=== PATIENT | female | born 1965 | race Caucasian/White ===

== ENCOUNTER 2023-11-13 05:39 | Emergency (ER) | payer OTHER, SELFPAY ==
[2023-11-13] VITALS (11 sets, daily range): BP systolic 119–176; BP diastolic 87–153
[2023-11-13] MEDS: ZOFRAN 4 MG IV (06:45)
[2023-11-13] MEDS: ATIVAN 1 MG IV ×2 (06:45→09:03)
[2023-11-13] MEDS: NSS 1000 IV (06:46)
--- NOTE | 2023-11-13 06:54 | ED.GENMED ---
History of Present Illness
General
Chief Complaint: Alcohol Problem
Source: patient
Exam Limitations: none
Time Seen by Provider: 11/13/23 06:08
Travel History
Have you had any contact with someone who has COVID-19?: No
Do you have any symptoms of coronavirus? Fever > 100 degrees, chills, cough, shortness of breath, sore throat, loss of taste or smell, muscle aches, or headache?: No
History of Present Illness
History of Present Illness:
58-year-old female states she had been mostly sober for about 6 months but 3 to 4 days ago drank a significant mount of vodka. Patient states she is now shaky, nauseous, vomiting, has a headache and feels her muscles are cramping. She suspects she
is in alcohol withdrawal. The patient does also have a history of hypertension states she has not taken her medications in probably a week. She denies chest pain.
Past History
Past History
ED Past Medical History: HTN, Psychiatric and Other (Alcoholism)
ED Past Surgical History: None and Other (parathyroidectomy)
Social History
Tobacco: Smoker
Alcohol: Binge drinker
Drug: None
Personal:
Living: with family
Employment: Employed
Family History
Family History: Other (Father with TIA and hypertension)
Phy Exam
Physical Exam
Physical Exam:
CONSTITUTIONAL Patient alert and oriented to person, place and time. Vomiting on evaluation. Vital signs reviewed.
HEAD atraumatic, normocephalic.
EYES eyelids normal to inspection, Pupils equally round and reactive to light, Extraocular muscles intact, Conjunctiva normal, Sclera normal.
NECK normal range of motion, Trachea midline, no jugular venous distention.
RESPIRATORY CHEST No respiratory distress noted, Chest expansion equal, Bilateral breath sounds clear.
CARDIOVASCULAR regular rate and tachycardic, Heart sounds normal.
ABDOMEN abdomen nontender, Bowel sounds normal. No distention.
BACK normal inspection, no obvious deformities
UPPER EXTREMITY range of motion normal, Motor strength normal, no cyanosis, no edema.
LOWER EXTREMITY range of motion normal, Motor strength normal, no cyanosis, no edema.
NEURO Speech normal, No focal motor deficits, Charlie coma scale 15, Memory normal, Cranial Nerves intact to screening exam. Somewhat tremulous
SKIN skin warm, dry, and normal in color.
Scores
Withdrawal Assessment of Alcohol
Withdrawal Assessment Completed?: Yes
Nausea and Vomiting: Constant nausea, frequent dry heaves and vomiting
Tactile Disturbances: None
Tremor: Moderate, with patient's arms extended
Auditory Disturbances: Not present
Paroxysmal Sweats: Beads of sweat obvious on forehead
Visual Disturbances: Not present
Anxiety: Mild anxiety
Headache, Fullness in Head: Moderate
Agitation: Normal activity
Orientation and clouding of sensorium: Oriented and can do serial additions
Total CIWA Score: 19
Alcohol Withdrawal Medication Recommendation: Equal to MSAS Score 8-11. Lorazepam 1-2mg IV NOW & re-assess q1hr
Course
Orders/Labs/Results
Orders:
Orders
11/13/23 06:40
0.9% Sodium Chloride 1000 ml [Nss] 1,000 ml IV BOLUS
Lorazepam [Ativan] 1 mg IV NOW STA
Ondansetron Injectable [Zofran] 4 mg IV NOW STA
11/13/23 06:41
Electrocardiogram (*1) Urgent
Reason for Study: Hypertension, Benign
EKG- Treatment ONCE
Magnesium Stat
11/13/23 06:51
Complete Blood Count/With Diff Urgent
Comprehensive Metabolic Panel Urgent
11/13/23 08:23
Add On - Microbiology Stat
Tests Added?: magnesium
11/13/23 08:52
Lorazepam [Ativan] 1 mg IV NOW STA
11/13/23 08:55
Acetaminophen [Tylenol] 1,000 mg PO NOW STA
11/13/23 09:16
Labetalol HCl [Trandate] 10 mg IV NOW STA
11/13/23 09:49
NIFEdipine EXTENDED RELEASE [Procardia Xl (Extended Release)] 30 mg PO NOW STA
Abnormal Lab Results
11/13/23
06:51
MCH 32.9 H pg
(27.0-31.0)
Abs Immat Gran (auto) 0.1 H 10^3/uL
(0-0.05)
Absolute Neuts (auto) 7.9 H 10^3/uL
(1.4-6.5)
Absolute Monos (auto) 0.7 H 10^3/uL
(0.1-0.6)
Immature Gran % 1.3 H %
(0-0.5)
Neutrophils % 78.6 H %
(42.2-75.2)
Lymphocytes % 13.3 L %
(20.5-51.1)
Sodium 132 L mmol/L
(135-145)
Potassium 3.3 L mmol/L
(3.5-5.1)
Chloride 95 L mmol/L
(98-107)
Glucose 171 H mg/dl
(70-99)
Total Bilirubin 1.9 H mg/dl
(0.2-1.3)
AST 121 H U/L
(14-36)
ALT 95 H U/L
(0-35)
11/13/23 06:51
11/13/23 06:51
Vital Signs
Initial and Last Documented VS:
Initial Vital Signs
Temp Pulse Resp BP Pulse Ox
98.7 F 107 22 172/126 96
11/13/23 05:44 11/13/23 05:44 11/13/23 05:44 11/13/23 05:44 11/13/23 05:44
Last Documented Vital Signs
Temp Pulse Resp BP Pulse Ox
98.7 F 96 21 119/89 93
11/13/23 05:44 11/13/23 10:45 11/13/23 10:45 11/13/23 10:30 11/13/23 10:45
MDM/Problems Addressed
MDM/Problems Addressed:
Acute uncontrolled hypertension, acute alcohol withdrawal
*Pulse Oximetry
Patient hypoxic: no
*EKG
Interpreted by ED Provider?: Yes
Interpretation: abnormal
Rate: tachycardiac
Rhythm: sinus
[place]: normal axis
Interval: normal interval
*Freezer Assistant Interpretation
Rate: normal
Interpretation: normal
Rhythm: sinus
*Critical Care Note
Total Time (30-74mins, 75-104mins- exclusive of procedures): 40 minutes
Data Reviewed
Review of Other/Old Records Reveals: Discharge Summary (Discharge summary from 3 days ago reviewed. Patient was discharged on nifedipine and spironolactone.)
Source: patient
Prescriptions/Medications Considered But Not Given:
Considered oral beta-blockers but patient administered nifedipine.
Patient Management
Escalation/DeEscalation of care consider admission/obs:
Patient feels much better. Advised strongly that she maintain compliance with her blood pressure medications. Provide small amount of benzodiazepines from use. Offered B cares but the patient prefers to follow-up with her counselor which she is
in touch with. Okay for discharge
ED Attending Note
-
Portions of this chart may have been created with voice recognition software.� Occasional wrong word or��sound alike� substitutions may have occurred due to the inherent limitations of voice recognition software.
Discharge Plan
Departure
Patient Disposition: Home (Routine Discharge)
Date of Disposition: 11/13/23
Time of Disposition: 11:07
Patient with high blood pressure during this ER visit?: No
Discharge Problem:
Alcohol withdrawal, Uncontrolled hypertension
Instructions: High blood pressure in adults, Alcohol Withdrawal (DC)
Prescriptions:
New
oxazepam 15 mg capsule
15 mg PO TID Qty: 12 0RF
Rx Instructions:
take 30mg TID x 1 day, then 15mg TID x 2 days, then stop
No Action
nifedipine 30 mg Tablet Extended Release
30 mg PO DAILY Qty: 30 0RF
spironolactone 25 mg Tablet
25 mg PO DAILY Qty: 30 0RF
Referrals:
Aric Simms MD [Family Provider] -
Activity Restrictions/Additional Instructions:
It is extremely important that you continue your blood pressure medication daily and do not miss dosages. Please see your doctor in the next 3 days for follow-up and reevaluation. Also please touch base with your alcohol counselor for further
help. Return immediately for worsening symptoms, tremulousness, vomiting, headache, vision changes, motor weakness or any other concerns.
Interventions
Interventions:
*Risk Screen - Suicide Last Done: 11/13/23 05:44
*General Assessment Last Done: 11/13/23 05:44
*Neglect/Abuse Screening Last Done: 11/13/23 05:44
ED- Fall Risk Assessment Last Done: 11/13/23 05:44
*ED COVID-19 Vaccine History Last Done: 11/13/23 05:44
ED- Neurological Assessment Last Done: 11/13/23 06:34
ED-Psychological Assessment Last Done: 11/13/23 06:34
[2023-11-13 07:05] LABS: % Basophils 0.2 % (0-2); % Eosinophils 0.1 % (0-6); % Immature Granulocytes 1.3 % (0-0.5); % Lymphocytes 13.3 % (20.5-51.1); % Monocytes 6.5 % (1.7-9.3); % Neutrophils 78.6 % (42.2-75.2); Absolute Immature Granulocytes 0.1 10^3/uL (0-0.05); Absolute Lymphocytes 1.3 10^3/uL (1.2-3.4); Absolute Monocytes 0.7 10^3/uL (0.1-0.6); Absolute Neutrophils 7.9 10^3/uL (1.4-6.5); Hematocrit 44.6 % (37.0-47.0); Mean Corp Hgb Conc. 35.9 g/dL (33.0-37.0); Mean Corpuscular Hgb 32.9 pg (27.0-31.0); Mean Corpuscular Volume 91.8 fL (81.0-99.0); Mean Platelet Volume 9.6 fL (7.4-10.4); Nucleated Red Blood Cells % 0 %; Platelet Count 394 10^3/uL (130-400); Red Blood Cell Count 4.86 10^6/uL (4.20-5.40); Red Cell Dist. Width 13.1 % (11.5-14.5); White Blood Cell Count 10.1 10^3/uL (4.8-10.8)
[2023-11-13 07:11] LABS: ALT (SGPT) 95 U/L (0-35); AST (SGOT) 121 U/L (14-36); Albumin 4.6 g/dl (3.5-5.0); Alkaline Phosphatase 123 U/L (38-126); Blood Urea Nitrogen 11 mg/dl (7-17); Carbon Dioxide 23 mmol/L (22-30); Chloride 95 mmol/L (98-107); Glucose 171 mg/dl (70-99); Potassium 3.3 mmol/L (3.5-5.1); Sodium 132 mmol/L (135-145); Total Bilirubin 1.9 mg/dl (0.2-1.3); Total Protein 7.8 g/dl (6.3-8.2); eGFR > 60.00
[2023-11-13] MEDS: TYLENOL 1000 MG PO (09:01)
[2023-11-13] MEDS: TRANDATE 10 MG IV (09:45)
[2023-11-13] MEDS: PROCARDIA XL (EXTENDED RELEASE) 30 MG PO (10:21)
== END 2023-11-13 11:47 | disposition home or self-care (01) ==
LOC: EMR 05:39
PROVIDERS: EMERGENCY PHYSICIAN Emergency Medicine; FAMILY PHYSICIAN Family Medicine
DX: F10.239 Alcohol dependence with withdrawal, unspecified (principal); R11.2 Nausea with vomiting, unspecified; R51.9 Headache, unspecified; I10 Essential (primary) hypertension; T50.906A Underdosing of unspecified drugs, medicaments and biological substances, initial encounter; Z91.128 Patient's intentional underdosing of medication regimen for other reason; F17.200 Nicotine dependence, unspecified, uncomplicated
CPT/HCPCS: 99291; 96374; 96375 ×2; 96361; 96376; 80053; 85025; 93005

== ENCOUNTER 2023-11-26 12:53 | Emergency (ER) | payer OTHER, SELFPAY ==
[2023-11-26 12:55] VITALS: BP 168/109
[2023-11-26 13:20] LABS: ALT (SGPT) 71 U/L (0-35); AST (SGOT) 123 U/L (14-36); Albumin 4.2 g/dl (3.5-5.0); Alkaline Phosphatase 101 U/L (38-126); Blood Urea Nitrogen 19 mg/dl (7-17); Calcium 8.7 mg/dl (8.4-10.2); Carbon Dioxide 19 mmol/L (22-30); Chloride 107 mmol/L (98-107); Glucose 110 mg/dl (70-99); Lipase 60 U/L (23-300); Sodium 140 mmol/L (135-145); Total Bilirubin 0.6 mg/dl (0.2-1.3); Total Protein 7.1 g/dl (6.3-8.2); eGFR > 60.00
[2023-11-26 13:21] LABS: % Basophils 0.8 % (0-2); % Eosinophils 0.2 % (0-6); % Immature Granulocytes 0.2 % (0-0.5); % Lymphocytes 45.6 % (20.5-51.1); % Monocytes 3.7 % (1.7-9.3); % Neutrophils 49.5 % (42.2-75.2); Absolute Lymphocytes 2.4 10^3/uL (1.2-3.4); Absolute Monocytes 0.2 10^3/uL (0.1-0.6); Absolute Neutrophils 2.6 10^3/uL (1.4-6.5); Hematocrit 41.3 % (37.0-47.0); Hemoglobin 14.7 g/dL (12.0-16.0); Mean Corp Hgb Conc. 35.6 g/dL (33.0-37.0); Mean Corpuscular Hgb 33.3 pg (27.0-31.0); Mean Corpuscular Volume 93.7 fL (81.0-99.0); Mean Platelet Volume 9.1 fL (7.4-10.4); Nucleated Red Blood Cells % 0 %; Platelet Count 330 10^3/uL (130-400); Red Blood Cell Count 4.41 10^6/uL (4.20-5.40); Red Cell Dist. Width 13.2 % (11.5-14.5); White Blood Cell Count 5.2 10^3/uL (4.8-10.8)
[2023-11-26 15:55] VITALS: BMI 38.6
[2023-11-26] MEDS: ATIVAN 0.5 MG IV (15:56)
[2023-11-26] MEDS: NSS 500 IV (15:56)
[2023-11-26] MEDS: ZOFRAN 4 MG IV ×2 (15:56→17:45)
[2023-11-26 16:32] VITALS: BP 155/89
[2023-11-26 16:52] LABS: Alcohol 374 mg/dl
--- NOTE | 2023-11-26 23:52 | ED.GENMED ---
History of Present Illness
General
Chief Complaint: Abdominal Symptoms
Source: patient
Exam Limitations: none
Time Seen by Provider: 11/26/23 15:05
Nursing documentation reviewed up to this point in time: agreed with
Travel History
Have you had any contact with someone who has COVID-19?: No
Do you have any symptoms of coronavirus? Fever > 100 degrees, chills, cough, shortness of breath, sore throat, loss of taste or smell, muscle aches, or headache?: No
History of Present Illness
History of Present Illness:
Patient to ED with complaint of nausea, vomiting, diarrhea. Symptms started last PM. States she thinks she ate bad chicken and then she drank a bottle of wine. Brought self to ED via [facility]. No fever/chills
Past History
Past History
ED Past Medical History: HTN, Psychiatric and Other (Alcoholism)
ED Past Surgical History: None and Other (parathyroidectomy)
Social History
Tobacco: Smoker
Alcohol: Binge drinker
Drug: None
Personal:
Living: with family
Employment: Employed
Family History
Family History: Other (Father with TIA and hypertension)
Review of Systems
Review of Systems
Allergies reviewed?: Yes
All Other Systems: ROS reviewed and negative except as documented in HPI and ROS
Constitutional: Reports no symptoms
EENT: Reports no symptoms
Respiratory: Reports no symptoms
Cardiac: Reports no symptoms
ABD/GI: Reports nausea and vomiting
: Reports no symptoms
Musculoskeletal: Reports no symptoms
Skin: Reports no symptoms
Neurological: Reports no symptoms
Psychiatric: Reports no symptoms
Phy Exam
General Physical Exam
General Presentation: well appearing and no apparent distress
General age: appears stated age
General Skin: warm
General Habitus: normal
Cardiovascular Exam
Cardiovascular Exam: regular rate/rhythm and no edema
Gastrointestinal Exam
Gastrointestinal Exam: normal bowel sounds, non tender, soft, no organomegaly, no pulsatile mass, non distended and no cva tenderness
Musculoskeletal Exam
Musculoskeletal Exam: full ROM and neuro vasc intact
Skin Exam
Skin Exam: normal color, warm/dry and no rash
Psychiatric Exam
Psychiatric Exam: normal mood/affect
Course
Orders/Labs/Results
Orders:
Orders
11/26/23 13:02
Alcohol Urgent
Complete Blood Count/With Diff Urgent
Comprehensive Metabolic Panel Urgent
Lipase Urgent
11/26/23 13:50
EKG [Electrocardiogram (*1)] Urgent
Reason for Study: Fatigue / Weakness
EKG- Treatment ONCE
11/26/23 15:37
Add On- LAB Urgent
Tests Added?: Alcohol
11/26/23 15:38
0.9% Sodium Chloride 500 ml [Nss] 500 ml IV BOLUS
Lorazepam [Ativan] 0.5 mg IV NOW STA
Ondansetron Injectable [Zofran] 4 mg IV NOW STA
11/26/23 17:22
Ondansetron Injectable [Zofran] 4 mg IV NOW STA
Abnormal Lab Results
11/26/23
13:02
MCH 33.3 H pg
(27.0-31.0)
Carbon Dioxide 19 L mmol/L
(22-30)
BUN 19 H mg/dl
(7-17)
Glucose 110 H mg/dl
(70-99)
AST 123 H U/L
(14-36)
ALT 71 H U/L
(0-35)
11/26/23 13:02
11/26/23 13:02
Vital Signs
Initial and Last Documented VS:
Initial Vital Signs
Temp Pulse Resp BP Pulse Ox
98.2 F 90 16 168/109 98
11/26/23 12:55 11/26/23 12:55 11/26/23 12:55 11/26/23 12:55 11/26/23 12:55
Last Documented Vital Signs
Temp Pulse Resp BP Pulse Ox
98.2 F 74 18 155/89 94
11/26/23 12:55 11/26/23 16:32 11/26/23 16:32 11/26/23 16:32 11/26/23 17:30
*Critical Care Note
Total Time (30-74mins, 75-104mins- exclusive of procedures): Not Applicable
ED Attending Note
-
Portions of this chart may have been created with voice recognition software.� Occasional wrong word or��sound alike� substitutions may have occurred due to the inherent limitations of voice recognition software.
Discharge Plan
Departure
Patient Disposition: Home (Routine Discharge)
Date of Disposition: 11/26/23
Time of Disposition: 17:55
Patient with high blood pressure during this ER visit?: No
Condition: Good
Covid-19: Not Applicable
Discharge Problem:
Vomiting, Alcohol abuse
Instructions: Nausea and Vomiting, Adult (DC), Alcohol Use Disorder ED
Prescriptions:
No Action
nifedipine 30 mg Tablet Extended Release
30 mg PO DAILY Qty: 30 0RF
spironolactone 25 mg Tablet
25 mg PO DAILY Qty: 30 0RF
oxazepam 15 mg capsule
15 mg PO TID Qty: 12 0RF
Rx Instructions:
take 30mg TID x 1 day, then 15mg TID x 2 days, then stop
Referrals:
Aric Simms MD [Family Provider] -
Interventions
Interventions:
*Risk Screen - Suicide Last Done: 11/26/23 12:55
*General Assessment Last Done: 11/26/23 12:55
*Neglect/Abuse Screening Last Done: 11/26/23 12:55
ED- Fall Risk Assessment Last Done: 11/26/23 16:30
*Nursing Disposition Last Done: 11/26/23 18:27
WM-Arxjmh-Ykcmzhkbcf Assessment Last Done: 11/26/23 16:30
Discharge Date and Time
Discharge Date/Time: 11/26/23 18:29
== END 2023-11-26 18:29 | disposition home or self-care (01) ==
LOC: EMR 12:53
PROVIDERS: Student in an Organized Health Care Education/Training Program; EMERGENCY PHYSICIAN Emergency Medicine; FAMILY PHYSICIAN Family Medicine
DX: R11.2 Nausea with vomiting, unspecified (principal); F10.10 Alcohol abuse, uncomplicated; R19.7 Diarrhea, unspecified; R42 Dizziness and giddiness; I10 Essential (primary) hypertension; F41.9 Anxiety disorder, unspecified; F32.A Depression, unspecified; F17.200 Nicotine dependence, unspecified, uncomplicated
CPT/HCPCS: 99284; 96374; 96375; 96361; 96376; 80053; 82077; 83690; 85025; 93005

== ENCOUNTER 2023-11-28 04:10 | Inpatient (IN) | payer OTHER, SELFPAY ==
[2023-11-28] VITALS (22 sets, daily range): BP systolic 124–174; BP diastolic 78–145; PULSE 109; O2SAT 94–97; BMI 42.0; BMI 41.0
[2023-11-28 02:18] LABS: % Basophils 0.3 % (0-2); % Immature Granulocytes 0.4 % (0-0.5); % Lymphocytes 6.6 % (20.5-51.1); % Monocytes 3.2 % (1.7-9.3); % Neutrophils 89.5 % (42.2-75.2); Absolute Basophils 0.1 10^3/uL (0-0.2); Absolute Immature Granulocytes 0.1 10^3/uL (0-0.05); Absolute Lymphocytes 1.4 10^3/uL (1.2-3.4); Absolute Monocytes 0.7 10^3/uL (0.1-0.6); Absolute Neutrophils 18.3 10^3/uL (1.4-6.5); Hematocrit 37.4 % (37.0-47.0); Hemoglobin 13.6 g/dL (12.0-16.0); Mean Corp Hgb Conc. 36.4 g/dL (33.0-37.0); Mean Corpuscular Hgb 33.2 pg (27.0-31.0); Mean Corpuscular Volume 91.2 fL (81.0-99.0); Mean Platelet Volume 9.2 fL (7.4-10.4); Nucleated Red Blood Cells % 0 %; Platelet Count 267 10^3/uL (130-400); White Blood Cell Count 20.5 10^3/uL (4.8-10.8)
--- NOTE | 2023-11-28 02:38 | ED.GENMED ---
History of Present Illness
General
Chief Complaint: Withdrawal Symptoms
Source: patient and ambulance crew
Exam Limitations: none
Time Seen by Provider: 11/28/23 02:36
Nursing documentation reviewed up to this point in time: agreed with
Travel History
Have you had any contact with someone who has COVID-19?: No
Do you have any symptoms of coronavirus? Fever > 100 degrees, chills, cough, shortness of breath, sore throat, loss of taste or smell, muscle aches, or headache?: No
History of Present Illness
History of Present Illness:
58-year-old female presents with acute alcohol withdrawal. Patient states that she drinks fairly heavily but has not consumed alcohol in 3 days and attempt to quit. She states that she normally drinks at least a bottle of wine per day. Patient
has been seen several times over the last few weeks for similar symptoms. 3 days ago she was seen and discharged home, with a prescription for benzodiazepine. She did not fill them. Tonight she was shaking uncontrollably and felt nauseated. She
called 911. She does not work. She lives with 2 other tenants. She does go to therapy on occasion. She does not want to speak with be [facility] today. She does have high blood pressure. Denies any current chest pain or shortness of breath.
Past History
Past History
ED Past Medical History: HTN, Psychiatric and Other (Alcoholism)
ED Past Surgical History: None and Other (parathyroidectomy)
Social History
Tobacco: Smoker
Alcohol: Binge drinker
Drug: None
Personal:
Living: with family
Employment: Employed
Family History
Family History: Other (Father with TIA and hypertension)
Phy Exam
General Physical Exam
General Presentation: moderate distress
General age: appears older than age
General Skin: warm, dry and diaphoretic
General Habitus: normal
General Mental: angry and anxious
General Hydration: appears well hydrated
ENT Exam
ENT Exam: EOMI, pharynx normal, neck supple and normocephalic
Eye Exam
Eye Exam: PERRL, cornea clear and conjunctiva normal
Cardiovascular Exam
Cardiovascular Exam: tachycardia
Pulmonary Exam
Pulmonary Exam: lungs clear, no respiratory distress, no rales, no crackles, no rhonchi, no stridor, no wheezing and no cough
Gastrointestinal Exam
Gastrointestinal Exam: normal bowel sounds, non tender, soft, no organomegaly, no pulsatile mass and non distended
Neurological Exam
Neurological Exam: alert, oriented x3, no motor deficits and speech normal
Musculoskeletal Exam
Musculoskeletal Exam: full ROM and no edema
Skin Exam
Skin Exam: normal color, warm/dry, no rash and no petechia
Scores
Withdrawal Assessment of Alcohol
Withdrawal Assessment Completed?: Yes
Nausea and Vomiting: Mild nausea with no vomiting
Tactile Disturbances: Very mild itching, pins and needles, burning or numbness
Tremor: Moderate, with patient's arms extended
Auditory Disturbances: Not present
Paroxysmal Sweats: Beads of sweat obvious on forehead
Visual Disturbances: Not present
Anxiety: Moderately anxious, or guarded, so anxiety is inferred
Headache, Fullness in Head: Not present
Agitation: Moderately fidgety and restless
Orientation and clouding of sensorium: Cannot do serial additions or is uncertain about date
Total CIWA Score: 19
Alcohol Withdrawal Medication Recommendation: Equal to MSAS Score 8-11. Lorazepam 1-2mg IV NOW & re-assess q1hr
Course
Orders/Labs/Results
Orders:
Orders
11/28/23 02:10
Electrocardiogram (*1) Urgent
Reason for Study: Bradycardia / Tachycardia
EKG- Treatment ONCE
11/28/23 02:13
Alcohol Urgent
CMP [Comprehensive Metabolic Panel] Urgent
Complete Blood Count/With Diff Urgent
Magnesium Urgent
Comment: ADD ON
Phosphorus Urgent
11/28/23 02:39
Lorazepam [Ativan] 1 mg IV NOW STA
11/28/23 03:00
0.9% Sodium Chloride 1000 ml [Nss] 1,000 ml Mvi, Adult [Multivitamin] 10 ml Thiamine Injection 100 mg IV 250 mls/hr
11/28/23 03:24
Add On- LAB Urgent
Tests Added?: Magnesium, Phosphorus
Lorazepam [Ativan] 1 mg IV NOW STA
11/28/23 03:45
Admit/Transfer Patient As Directed
Co-Sign Provider:
Level of Care: Inpatient admission
Assign to:: IMU- Intermediate Care
Physician / Group: Ruperto
Diagnosis: Alcohol Withdrawal
Reason for Hospitalization: Alcohol Withdrawal
Expected length of stay greater than two midnights?: Yes
ELOS- Estimated Length of Stay in days: 3
I certify the patient meets the requirements for IP care: Yes
11/28/23 03:46
Code Status As Directed
Resuscitation Status: Full Code
11/28/23 04:09
Magnesium Sulfate 1 G/D5w [Magnesium Sulfate] 1 gm in 100 ml IV NOW
11/28/23 04:28
0.9% Sodium Chloride [Nss (Preservative Free)] See Protocol IV PRN PRN
Acetaminophen [Tylenol] 650 mg PO Q4HPRN PRN
FOLic ACID [Folvite] 1 mg 0.9% Sodium Chloride 50 ml [Nss] 50 ml IV DAILYPRN
HYDROmorphone [Dilaudid] 0.5 mg IV Q4HPRN PRN
Lactated Ringers [Lr] 1,000 ml IV 150 mls/hr
Lorazepam [Ativan] 1 mg IV Q1HPRN PRN
Lorazepam [Ativan] 1 mg PO Q2HPRN PRN
Lorazepam [Ativan] 2 mg IV Q1HPRN PRN
Ondansetron Injectable [Zofran] 4 mg IV Q6HPRN PRN
11/28/23 04:28
Case Management Consult Once
Case Management Consult: Other
Comment: Substance abuse counseling
DIETARY CONSULT Routine
Reason for Consult: Nutrition support, possible refeeding guidelines
Urinalysis Routine
Date Specimen was Collected: 11/28/23
Time Specimen was Collected: 06:53
Urine Drug Abuse Screen Routine
Date Specimen was Collected: 11/28/23
Time Specimen was Collected: 06:53
Activity As Directed
Activity Level: Ambulate
With Assistance
Bladder Scan As Directed
Follow Bladder Retention/Intermittent Cath Algorithm?: Yes
PRN if no void in __ hours: 6
Frequency: Per Retention Algorithm
If Bladder Scan Result >: 400
then:: Straight cath
EKG with chest pain [ECG as needed] As Directed
ECG as needed for:: Chest Pain
I/O [Intake/ Output] As Directed
Frequency: Per unit guidelines
MSAS SCORE As Directed
MSAS Score 0-4: Repeat MSAS every 2 hours until 0-4 for three consecutive assessments, then every 4 hours x 48
hours.
MSAS Score 5-7: For MILD withdrawl symptoms. Repeat MSAS and RASS every 2 hours
MSAS Score 8-11: For MODERATE withdrawal symptoms. Repeat MSAS and RASS every 1 hour. Consider ICU or IMU
level of care.
MSAS Score > 11: For SEVERE withdrawal symptoms. Repeat MSAS and RASS every 1 hour. Notify provider, consider
ICU level of care.
MSAS Additional Instructions: If no improvement or no decrease in score from severe to moderate within 12
hours, consult psychiatry
MSAS Notify Provider: Notify provider if patient requires more than 10 mg of Lorazepam in eight hour period.
Orthostatic Vital Signs As Directed
Orthostatic VS Frequency: BID
Pneumatic Compression Sleeves As Directed
Type: Knee high
Precautions As Directed
Type of Precautions: Seizure
Straight Cath As Directed
Frequency: Per Retention Algorithm
Additional Instructions: straight cath as needed per acute urinary retention algorithm for 24 hrs
Additional Instructions: for bladder scan greater than 400 mL
Vital Signs As Directed
Frequency: Per unit guidelines
Weight As Directed
Frequency: Daily
Oxygen Therapy [O2 Therapy] [RESP] Routine
Titrate/Wean O2 to maintain O2 sat greater than (%): 94
Ot Eval And Treat Routine
PT Consult [Pt Eval And Treat] Routine
Activity Level: Ambulate
With Assistance
DX Deep Vein Thrombosis Video Routine
11/28/23 05:55
Complete Blood Count/No Diff IN AM
TSH Reflex To Free T4 Routine
11/28/23 06:00
EKG [Electrocardiogram (*1)] IN AM
Reason for Study: Chest Pain
Clear Liquid
At Your Request: Non-Participating
11/28/23 08:00
FOLic ACID [Folvite] 1 mg PO DAILY
NIFEdipine EXTENDED RELEASE [Procardia Xl (Extended Release)] 30 mg PO DAILY
Spironolactone [Aldactone] 25 mg PO DAILY
Thiamine Injection 200 mg IV Q8
12/01/23 08:00
Thiamine HCl [Vitamin B1] 100 mg PO BID
Abnormal Lab Results
11/28/23
02:13
WBC 20.5 H 10^3/uL
(4.8-10.8)
RBC 4.10 L 10^6/uL
(4.20-5.40)
MCH 33.2 H pg
(27.0-31.0)
Abs Immat Gran (auto) 0.1 H 10^3/uL
(0-0.05)
Absolute Neuts (auto) 18.3 H 10^3/uL
(1.4-6.5)
Absolute Monos (auto) 0.7 H 10^3/uL
(0.1-0.6)
Neutrophils % 89.5 H %
(42.2-75.2)
Lymphocytes % 6.6 L %
(20.5-51.1)
Sodium 131 L D mmol/L
(135-145)
Potassium 3.4 L mmol/L
(3.5-5.1)
Carbon Dioxide 15 L mmol/L
(22-30)
Glucose 178 H mg/dl
(70-99)
Magnesium 0.9 L* mg/dl
(1.6-2.3)
Total Bilirubin 1.5 H mg/dl
(0.2-1.3)
AST 191 H U/L
(14-36)
ALT 77 H U/L
(0-35)
11/28/23 02:13
11/28/23 02:13
Vital Signs
Initial and Last Documented VS:
Initial Vital Signs
Pulse Resp Pulse Ox
116 13 96
11/28/23 02:12 11/28/23 02:12 11/28/23 02:12
Last Documented Vital Signs
Temp Pulse Resp BP Pulse Ox
98.7 F 111 21 142/86 96
11/28/23 02:13 11/28/23 06:45 11/28/23 06:45 11/28/23 06:00 11/28/23 06:45
*Pulse Oximetry
Patient hypoxic: no
*EKG
Interpreted by ED Provider?: Yes
EKG Intrepretation Date: 11/28/23
Interpretation: abnormal
Rhythm: sinus
[place]: left axis deviation
Ischemia: no ischemia
*Assistant Merchandiser Interpretation
Rate: tachycardiac
Heart Rate: 112
Rhythm: sinus arrhythmia and sinus tachycardia
*Critical Care Note
Total Time (30-74mins, 75-104mins- exclusive of procedures): 30
comment:
Critical care statement: A total of 30 minutes of critical care time was provided for this patient. This time is separate from time utilized to perform the aforementioned documented procedures. Aggregate critical care time includes only time
during which I was engaged in work directly related to the patient's care, as described above, whether at the bedside or elsewhere in the Emergency Department.
ED Attending Note
-
Portions of this chart may have been created with voice recognition software.� Occasional wrong word or��sound alike� substitutions may have occurred due to the inherent limitations of voice recognition software.
Discharge Plan
Departure
Patient Disposition: Admit
Date of Disposition: 11/28/23
Time of Disposition: 03:09
Admit to: Telemetry
Presentation/result/management discussed w/ accepting MD/DO: Hospitalist
Condition: Fair
Discharge Problem:
Alcohol intoxication, Alcohol consumption binge drinking, Alcohol withdrawal
Interventions
Interventions:
*Risk Screen - Suicide Last Done: 11/28/23 02:13
*General Assessment Last Done: 11/28/23 02:13
*Neglect/Abuse Screening Last Done: 11/28/23 02:13
*ED COVID-19 Vaccine History Last Done: 11/28/23 02:13
ED- Neurological Assessment Last Done: 11/28/23 03:55
ED-Psychological Assessment Last Done: 11/28/23 03:55
[2023-11-28 02:40] LABS: AST (SGOT) 191 U/L (14-36); Albumin 4.1 g/dl (3.5-5.0); Alkaline Phosphatase 97 U/L (38-126); Blood Urea Nitrogen 13 mg/dl (7-17); Calcium 8.8 mg/dl (8.4-10.2); Carbon Dioxide 15 mmol/L (22-30); Chloride 98 mmol/L (98-107); Estimated Creatinine Clearance 81 ml/min; Glucose 178 mg/dl (70-99); Potassium 3.4 mmol/L (3.5-5.1); Sodium 131 mmol/L (135-145); Total Bilirubin 1.5 mg/dl (0.2-1.3); Total Protein 6.8 g/dl (6.3-8.2); eGFR > 60.00
[2023-11-28 02:42] LABS: Alcohol None Detected
[2023-11-28] MEDS: ATIVAN 1 MG IV ×3 (02:45→17:34)
[2023-11-28 02:50] LABS: ALT (SGPT) 77 U/L (0-35)
[2023-11-28] MEDS: MULTIVITAMIN 1011 ML IV (03:05)
[2023-11-28] MEDS: MULTIVITAMIN 1011 MG IV (03:05)
--- NOTE | 2023-11-28 03:50 | HPS.HSE ---
Family Physician
-
Family Physician: Aric Simms
Chief Complaint
-
Tremulous, N/V
History of Present Illness
Patient is a 58y F with PMH significant for hypertension and obesity who presents to ED complaining of alcohol withdrawal symptoms. Patient states that she has had symptoms of N/V, tremulousness, anxiety, vision changes and musscle spasms for
the past 3 days. Patient states that she has had similar symptom sin the past relating to alcohol withdrawal. Patient states that she typically drinks one bottle of wine daily. Her last drink of alcohol was three days ago.
She denies any illicit drug use.
Medical History
Past Medical History
Past Medical History: Reports Other
Additional Past Medical History:
Hypertension
Obesity
DJD
Anxiety / Depression
Hyperparathyroidism
Past Surgical History: Reports Other
Additional Past Surgical History:
Parathyroidectomy
Social History
Tobacco: Former Smoker (Quit smoking one year ago. > 40 pack years total.)
Alcohol: Chronic Alcoholic (1 bottle of wine daily. Last drink 3 days ago.)
Drug: None
Family History
Family History: Not pertinent
Allergies / Home Medications
Allergies reflects when Allergies were last updated in [facility].
Home Medications with original date entered in [facility]
Allergy/Medication List:
Allergies
Allergy/AdvReac Type Severity Reaction Status Date / Time
No Known Allergies Allergy Verified 11/28/23 02:18
Home Medications
nifedipine 30 mg tablet,extended release 30 mg PO DAILY #30 tabs 11/10/22
spironolactone 25 mg tablet 25 mg PO DAILY #30 tabs 11/10/22
Review of Systems
-
History Source: Patient
A 12 point ROS was completed and negative except as noted: Yes
Constitutional: Reports Fatigue; Denies Fever or Chills
EENT: Denies Sore Throat
Respiratory: Denies Cough or Trouble Breathing
Cardiac: Denies Chest Pain or Palpitations
Abdomen/GI: Reports Abdominal Pain, Nausea, Vomiting and Anorexia; Denies Diarrhea, Constipated, Bloody Stools or Black Stools
: Denies Dysuria, Frequency or Flank Pain
Musculoskeletal: Reports Joint Pain, Edema and Other (muscle spasms.)
Neurological: Reports Dizzy and Headache; Denies Weakness or Numbness
Psych: Reports Depression and Anxiety
Physical Exam
Vital Signs
Vital Signs
Temp Pulse Resp BP Pulse Ox
98.7 F 127 23 146/94 97
11/28/23 02:13 11/28/23 03:15 11/28/23 03:15 11/28/23 03:00 11/28/23 03:15
Physical Exam
General: Other (58y F in moderate distress due to tremulousness / withdrawals.)
HEENT: Moist mucous membranes, PERRLA and Other (Thick neck.)
Respiratory: Other (Decreased at bases - otherwise clear.)
Cardiac: S1/S2 and Tachycardia; No Murmur
GI: Non Tender, Non Distended, Normal Bowel Sounds and Other (Obese)
Musculoskeletal: No Clubbing, No Cyanosis and No Edema
Neuro: AO x 3 and Nonfocal/grossly intact
Psych: Anxious
Laboratory Results
-
11/28/23 02:13
11/28/23 02:13
Laboratory Results
Total Bilirubin 1.5 mg/dl (0.2-1.3) H 11/28/23 02:13
AST 191 U/L (14-36) H 11/28/23 02:13
ALT 77 U/L (0-35) H 11/28/23 02:13
Alkaline Phosphatase 97 U/L (38-126) 11/28/23 02:13
Impression/Plan
-
A/P: Patient is a 58y F with PMH significant for hypertension and obesity who presents to ED complaining of symptoms of alcohol withdrawal.
Alcohol Use Disorder with Acute Withdrawal Symptoms
Anion Gap Metabolic Acidosis
Hypokalemia
Mild Hyponatremia
- Admit to IMU for further evaluation and treatment.
- Supportive care with PRN BZDs, IVFs, electrolyte replacement, etc.
- Follow MSAS.
- Monitor for clinical improvement.
- Consider formal psych eval if patient is amenable.
Benign Hypertension
- Continue usual outpatient medications with holding parameters.
- Monitor potassium levels (slightly low at present) on spironolactone.
Leukocytosis
- Possible stress response. No evidence of acute infectious process, etc.
- Observe off of abx for now.
- Follow for fevers, focal symptoms, changes in CBC, etc.
Obesity due to excess calories
- Affects all aspects of care.
- Encourage healthy lifestyle and increased exercise with goal of weight loss.
DVT Prophylaxis: SCDs
Code Status: Full
[2023-11-28 04:02] LABS: Magnesium 0.9 mg/dl (1.6-2.3); Phosphorus 3.2 mg/dl (2.5-4.5)
--- NOTE | 2023-11-28 04:29 | EDRN ---
Patient used purwick to urinate, then took it out herself and bed got wet, changed patients bed linen and placed brief on patient and pulled up in bed.
[2023-11-28] MEDS: MAGNESIUM SULFATE 100 IV (04:37)
[2023-11-28] MEDS: LR 1000 IV ×2 (04:38→20:16)
--- NOTE | 2023-11-28 05:19 | EDRN ---
Patient ambulated to bathroom with assistance of tech, when getting patient back to bed she was very unsteady on her feet and SOB, informed patient this was why we didn't want her getting out of bed so if someone else comes in she is to use bedpan
or purwick as she was unable to ambulate independently and reported being dizzy, patient states understanding and back in bed.
[2023-11-28] MEDS: ATIVAN 1 MG PO ×2 (05:56→20:21)
--- NOTE | 2023-11-28 06:07 | EDRN ---
Patient asking for more ativan, medicated per MSAS guidelines
[2023-11-28 06:22] LABS: Hematocrit 36.2 % (37.0-47.0); Hemoglobin 13.1 g/dL (12.0-16.0); Mean Corp Hgb Conc. 36.2 g/dL (33.0-37.0); Mean Corpuscular Hgb 33.9 pg (27.0-31.0); Mean Corpuscular Volume 93.8 fL (81.0-99.0); Mean Platelet Volume 9.7 fL (7.4-10.4); Platelet Count 247 10^3/uL (130-400); Red Blood Cell Count 3.86 10^6/uL (4.20-5.40); Red Cell Dist. Width 12.9 % (11.5-14.5); White Blood Cell Count 14.9 10^3/uL (4.8-10.8)
[2023-11-28 06:57] LABS: TSH Reflex To Free T4 4.71 uIU/ml (0.47-4.68)
[2023-11-28 07:26] LABS: Free T4 0.87 ng/dl (0.78-2.19)
[2023-11-28] MEDS: ZOFRAN 4 MG IV (10:05)
[2023-11-28] MEDS: THIAMINE INJECTION 200 MG IV ×3 (10:06→23:20)
[2023-11-28] MEDS: PROTONIX IV 40 MG IV (10:06)
[2023-11-28] MEDS: ALDACTONE 25 MG PO (10:07)
[2023-11-28] MEDS: FOLVITE 1 MG PO (10:08)
[2023-11-28] MEDS: PROCARDIA XL (EXTENDED RELEASE) 30 MG PO ×2 (10:09→16:21)
[2023-11-28] MEDS: NSS (PRESERVATIVE FREE) 10 ML IV (10:13)
[2023-11-28 10:37] LABS: Urine Albumin Trace (Neg - Trace); Urine Bilirubin Negative (Negative); Urine Character Clear (Clear); Urine Color Yellow; Urine Glucose Negative (Negative); Urine Ketone Trace (Negative); Urine Leukocyte Trace (Negative); Urine Nitrite Negative (Negative); Urine Occult Blood 2+ (Negative); Urine Urobilinogen Negative (Neg - 1+); Urine pH 6.5 (5.0-9.0)
[2023-11-28 10:44] LABS: Urine Bacteria Few (Negative); Urine Red Blood Cell 0-2 /HPF (0-2)
[2023-11-28 10:54] LABS: Amphetamines Negative (Negative); Barbiturates Negative (Negative); Benzodiazepines Negative (Negative); Buprenorphine Negative (Negative); Cocaine Negative (Negative); Marijuana Negative (Negative); Methadone Negative (Negative); Methamphetamines Negative (Negative); Opiates Negative (Negative); Phencyclidine Negative (Negative); Tricyclic Antidepressants Negative (Negative)
--- NOTE | 2023-11-28 10:57 | EDRN ---
Patient in bed sitting upright texting on phone. States that she is 'shaking so bad' she can't text. Patient has slight tremors in thumbs while texting. Patient able to hold cup of apple juice she reached for from her table and held a cup of oral
medications, taking them without complications.
[2023-11-28] MEDS: TYLENOL 650 MG PO (11:38)
[2023-11-28 12:06] LABS: ALT (SGPT) 56 U/L (0-35); AST (SGOT) 115 U/L (14-36); Albumin 3.6 g/dl (3.5-5.0); Alkaline Phosphatase 95 U/L (38-126); Blood Urea Nitrogen 6 mg/dl (7-17); Calcium 8.7 mg/dl (8.4-10.2); Carbon Dioxide 22 mmol/L (22-30); Chloride 102 mmol/L (98-107); Direct Bilirubin 0.4 mg/dl (0.0-0.4); Estimated Creatinine Clearance 122 ml/min; Glucose 141 mg/dl (70-99); Potassium 3.1 mmol/L (3.5-5.1); Sodium 132 mmol/L (135-145); Total Bilirubin 1.6 mg/dl (0.2-1.3); Total Protein 6.2 g/dl (6.3-8.2); eGFR > 60.00
--- NOTE | 2023-11-28 12:12 | CM ---
CM reviewed medical records. Patient lives alone. Patient denied history of VN and SNF. Patient uses a walker. Patient is active with her PCP.
CM was consulted to discuss drug and alcohol resources. Patient stated that she currently has a therapist that she speaks with regarding her stressors. Patient stated that this relapse was caused by financial concerns. She does not want this CM to
contact [facility], but is willing to accept written information. Patient stated that she wants to return home to 'get things together' and then she will reach out for additional assistance.
CM will continue to follow as needed.
--- NOTE | 2023-11-28 14:14 | EDRN ---
This RN assisted the patient to the bedside commode as she had disconnected herself from all the equipment including pinching the EKG lead wires off of the stickers. No physical contact was needed for the patient to climb off the bed and onto the
commode. Straightened the bed up for patient as she urinated. Patient requesting ativan as she feels she is extremely shaky and weak. Patient assisted back into the bed to ensure IV line remains patent. Discussed the medications currently ordered,
vitals taken advising the patient that het temperature was 98. While discussing how she was feeling there were no complaints of spasms, hallucinations, or pain. MSAS score as documented with tremors based on the patient's statement she can feel them.
[2023-11-28] MEDS: KLOR-CON 40 MEQ PO (16:22)
[2023-11-28] MEDS: MAGNESIUM SULFATE 50 IV (16:22)
[2023-11-28] MEDS: LR IV (19:15)
[2023-11-29] VITALS (9 sets, daily range): BP systolic 120–145; BP diastolic 84–99; PULSE 103–111; BMI 40.8
[2023-11-29] MEDS: LR 1000 IV (02:44)
[2023-11-29] MEDS: ATIVAN 1 MG PO ×3 (02:44→19:14)
--- NOTE | 2023-11-29 02:51 | PTCARENOTE ---
patient reports no bowel movement for 5 days. at home independent call center agent provider made aware and ordered prn senna-s.
[2023-11-29] MEDS: SENOKOT-S 1 TABLET PO (03:04)
--- NOTE | 2023-11-29 03:28 | PTCARENOTE ---
No acute events overnight. MSAS max of 7. Prn ativan given per protocol.
[2023-11-29 04:10] LABS: Blood Urea Nitrogen < 2 mg/dl (7-17); Calcium 8.7 mg/dl (8.4-10.2); Carbon Dioxide 26 mmol/L (22-30); Chloride 103 mmol/L (98-107); Estimated Creatinine Clearance 120 ml/min; Glucose 108 mg/dl (70-99); Magnesium 1.8 mg/dl (1.6-2.3); Potassium 3.1 mmol/L (3.5-5.1); Sodium 135 mmol/L (135-145); eGFR > 60.00
--- NOTE | 2023-11-29 05:07 | W.PN.UPDATE ---
Update Note
Progress Note Update
Morning labs: Potassium 3.1, order placed for Potassium Chloride 40meq PO 1x now to replete.
[2023-11-29] MEDS: KCL 40 MEQ PO (05:22)
--- NOTE | 2023-11-29 06:39 | PTCARENOTE ---
Patient desats in the high 80s while asleep. 2 liters NC placed.
[2023-11-29] MEDS: ALDACTONE 25 MG PO (08:15)
[2023-11-29] MEDS: PROCARDIA XL (EXTENDED RELEASE) 60 MG PO (08:15)
[2023-11-29] MEDS: PROTONIX IV 40 MG IV (08:16)
[2023-11-29] MEDS: THIAMINE INJECTION 200 MG IV ×3 (08:16→23:43)
[2023-11-29] MEDS: NSS (PRESERVATIVE FREE) 10 ML IV (08:16)
[2023-11-29] MEDS: FOLVITE 1 MG PO (08:16)
[2023-11-29] MEDS: LR IV (08:35)
[2023-11-29] MEDS: MOTRIN 400 MG PO (09:00)
[2023-11-29 12:50] LABS: COVID-19 Antigen Negative (Negative)
--- NOTE | 2023-11-29 14:24 | W.PN.HOSP.TC ---
Today's Communication/Plan
-
ongoing PT/OT
continue MSAS protocol and monitor scores
Assessment / Plan
Assessment / Plan
Assessment:
Alcohol Use Disorder with Acute Withdrawal Symptoms
Anion Gap Metabolic Acidosis
Hypokalemia
Mild Hyponatremia
- continue MSAS protocol and prn Ativan, IVF, electrolyte replacement, etc.
ETOH hepatitis
- monitor LFTs
Benign Hypertension
- Continue usual outpatient medications with holding parameters.
Hypokalemia - replete prn
Leukocytosis
- Possible stress response.� No evidence of acute infectious process, etc.
- Observe off of abx for now.
- Follow for fevers, focal symptoms, changes in CBC, etc.
Obesity due to excess calories
- Affects all aspects of care.
- Encourage healthy lifestyle and increased exercise with goal of weight loss.
DVT Prophylaxis:�SCDs
Code Status:�Full
Anticipated Discharge: 24 - 48 hours
Subjective/Interval History
-
Date of Service: November 29, 2023
patient reports some mild cough - COVID/flu negative
feels generally tired and generally weak, encourage patient to increase oral intake
Objective Data
-
Labs:
Laboratory Results
11/29/23 11/29/23
03:09 14:00
Sodium 135 Pending
Potassium 3.1 L Pending
Chloride 103 Pending
Carbon Dioxide 26 Pending
BUN < 2 L
Creatinine 0.5 L
Glucose 108 H
Calcium 8.7
Vital Signs:
Vital Signs
Temp Pulse Resp BP Pulse Ox
98.5 F 109 18 128/84 97
11/29/23 14:09 11/29/23 14:09 11/29/23 14:09 11/29/23 14:09 11/29/23 14:09
I&O
11/28/23 11/29/23 11/30/23
06:59 06:59 06:59
Intake Total 2760 / 2760 1020 / 1020
Output Total 500 / 500
Balance -500 / -500 2760 / 2760 1020 / 1020
Physical Exam
-
General: No Apparent Distress
HEENT: Normocephalic and Atraumatic
Respiratory: Negative Wheezes or Rales
Cardiac: Regular Rhythm and S1/S2
GI: Soft
Musculoskeletal: No Edema
Neuro: AO x 3
Hematologic / Lymphatic: No Lymphadenopathy
Psych: Calm
Data Reviewed
-
Total Time Spent with Patient (in minutes): 45
Labs: Labs Reviewed by me
[2023-11-29 15:32] LABS: Carbon Dioxide 25 mmol/L (22-30); Chloride 101 mmol/L (98-107); Potassium 3.9 mmol/L (3.5-5.1); Sodium 135 mmol/L (135-145)
[2023-11-30] VITALS (8 sets, daily range): BP systolic 120–146; BP diastolic 85–108; PULSE 87–117; BMI 39.4
[2023-11-30] MEDS: SENOKOT-S 1 TABLET PO (04:14)
[2023-11-30 08:34] LABS: % Basophils 0.1 % (0-2); % Immature Granulocytes 0.4 % (0-0.5); % Lymphocytes 24.8 % (20.5-51.1); % Monocytes 6.1 % (1.7-9.3); % Neutrophils 66.6 % (42.2-75.2); Absolute Eosinophils 0.2 10^3/uL (0-0.7); Absolute Lymphocytes 1.8 10^3/uL (1.2-3.4); Absolute Monocytes 0.5 10^3/uL (0.1-0.6); Absolute Neutrophils 4.9 10^3/uL (1.4-6.5); Hematocrit 41.1 % (37.0-47.0); Hemoglobin 13.7 g/dL (12.0-16.0); Mean Corp Hgb Conc. 33.3 g/dL (33.0-37.0); Mean Corpuscular Hgb 33.5 pg (27.0-31.0); Mean Corpuscular Volume 100.5 fL (81.0-99.0); Mean Platelet Volume 10.5 fL (7.4-10.4); Nucleated Red Blood Cells % 0 %; Platelet Count 240 10^3/uL (130-400); Red Blood Cell Count 4.09 10^6/uL (4.20-5.40); Red Cell Dist. Width 13.2 % (11.5-14.5); White Blood Cell Count 7.3 10^3/uL (4.8-10.8)
[2023-11-30] MEDS: FOLVITE 1 MG PO (08:38)
[2023-11-30] MEDS: ALDACTONE 25 MG PO (08:38)
[2023-11-30] MEDS: PROCARDIA XL (EXTENDED RELEASE) 60 MG PO (08:38)
[2023-11-30] MEDS: PROTONIX IV 40 MG IV (08:39)
[2023-11-30] MEDS: THIAMINE INJECTION 200 MG IV ×2 (08:39→17:00)
[2023-11-30] MEDS: NSS (PRESERVATIVE FREE) 10 ML IV (08:40)
[2023-11-30] MEDS: ATIVAN 1 MG PO ×4 (08:40→23:39)
[2023-11-30 08:58] LABS: ALT (SGPT) 84 U/L (0-35); AST (SGOT) 150 U/L (14-36); Albumin 4.1 g/dl (3.5-5.0); Alkaline Phosphatase 97 U/L (38-126); Blood Urea Nitrogen 9 mg/dl (7-17); Calcium 9.4 mg/dl (8.4-10.2); Carbon Dioxide 26 mmol/L (22-30); Chloride 102 mmol/L (98-107); Estimated Creatinine Clearance 100 ml/min; Glucose 92 mg/dl (70-99); Potassium 3.8 mmol/L (3.5-5.1); Sodium 135 mmol/L (135-145); Total Bilirubin 1.1 mg/dl (0.2-1.3); Total Protein 6.9 g/dl (6.3-8.2); eGFR > 60.00
--- NOTE | 2023-11-30 12:24 | PN.CDI ---
CDI
- -
CDI:
Physician Documentation Request
Admit Date: 11/28/23 04:10
Dear Doctor Sagrario,
Clinical Indicators:
Patient admitted with Alcohol Use Disorder with Acute Withdrawal Symptoms.
Magnesium riders: 11/28 Magnesium Sulfate 1 gm IV x 1.
Magnesium Sulfate 2 gm IV x 1.
Magnesium level:
11/28/23
02:13
Magnesium 0.9 L*
Based on the above, could you clarify in the progress notes, the appropriate diagnosis, if significant, that supports the above abnormalities and additional evaluation, monitoring and/or treatment rendered:
Hypomagnesemia
Abnormal lab value, clinically insignificant
Other, please specify
Use of terms such as suspected, likely, concern for, or probable (associated with a specific diagnosis that is being evaluated, monitored, or treated as if it exists) are acceptable and can be coded in the inpatient setting, when documented at the
time of discharge.
Thank you,
ISAAC Marie RN
CDI Specialist
available via tiger text
Please use your independent medical judgment in providing your response.
--- NOTE | 2023-11-30 12:56 | W.PN.HOSP.TC ---
Today's Communication/Plan
-
ongoing PT/OT
orthostatics and CT head
VN setup
Assessment / Plan
Assessment / Plan
Assessment:
Dizziness likely deconditioning in setting of ETOH intake/WD
- check orthostatics and CT head
- ongoing PT/OT
- patient wants home VN will need a walker too
Alcohol Use Disorder with Acute Withdrawal Symptoms
Anion Gap Metabolic Acidosis
Hypokalemia with Hypomagnesemia
Mild Hyponatremia
- continue MSAS protocol and prn Ativan, IVF, electrolyte replacement, etc.
ETOH hepatitis
- monitor LFTs
Benign Hypertension
- Continue usual outpatient medications with holding parameters.
Hypokalemia - replete prn
Leukocytosis
- Possible stress response.�No evidence of acute infectious process, etc.
- Observe off of abx for now.
- Follow for fevers, focal symptoms, changes in CBC, etc.
Obesity due to excess calories
- Affects all aspects of care.
- Encourage healthy lifestyle and increased exercise with goal of weight loss.
DVT Prophylaxis:�SCDs
Code Status:�Full
Anticipated Discharge: Within 24 hours
Subjective/Interval History
-
Date of Service: November 30, 2023
reports some dizziness with walking
denies any other complaints
Objective Data
-
Labs:
Laboratory Results
11/30/23
07:33
WBC 7.3
Hgb 13.7
Hct 41.1
Plt Count 240
Sodium 135
Potassium 3.8
Chloride 102
Carbon Dioxide 26
BUN 9
Creatinine 0.7
Glucose 92
Calcium 9.4
Total Bilirubin 1.1
AST 150 H
ALT 84 H
Alkaline Phosphatase 97
Vital Signs:
Vital Signs
Temp Pulse Resp BP Pulse Ox
98.3 F 106 18 120/88 96
11/30/23 10:51 11/30/23 10:51 11/30/23 10:51 11/30/23 10:51 11/30/23 10:51
I&O
11/29/23 11/30/23 12/01/23
06:59 06:59 06:59
Intake Total 2760 / 2760 2700 / 2700
Balance 2760 / 2760 2700 / 2700
Physical Exam
-
General: No Apparent Distress
HEENT: Normocephalic and Atraumatic
Respiratory: Negative Wheezes
Cardiac: Regular Rhythm and S1/S2
GI: Soft and Nontender
Genito-urinary: No Costovertebral Tender
Musculoskeletal: No Edema
Neuro: AO x 3
Psych: Calm
Data Reviewed
-
Total Time Spent with Patient (in minutes): 45
Labs: Labs Reviewed by me
--- NOTE | 2023-11-30 14:09 | CM ---
warehouse delivery manager reviewed patient's chart and plan is to home when stable, patient's physician has ordered visiting and patient has selected [facility].
Plan; Referral sent to [facility].
--- NOTE | 2023-11-30 15:59 | VNURNOTE ---
Home Health Liaison met with patient at 1500 to discuss [facility] nurse/therapy, visits, schedule and homebound status.
Patient initially stated that she would like to wait a while to start VN.
Patient is not homebound and will not qualify for VN.
No [facility] referral. CM updated.
[2023-12-01] VITALS (7 sets, daily range): BP systolic 114–148; BP diastolic 77–100; PULSE 95–106
[2023-12-01] MEDS: THIAMINE INJECTION 200 MG IV (01:57)
[2023-12-01] MEDS: ATIVAN 1 MG PO ×3 (06:35→20:17)
[2023-12-01 07:48] LABS: % Basophils 0.5 % (0-2); % Eosinophils 2.3 % (0-6); % Immature Granulocytes 0.6 % (0-0.5); % Lymphocytes 29.2 % (20.5-51.1); % Monocytes 7.4 % (1.7-9.3); Absolute Eosinophils 0.2 10^3/uL (0-0.7); Absolute Lymphocytes 1.9 10^3/uL (1.2-3.4); Absolute Monocytes 0.5 10^3/uL (0.1-0.6); Absolute Neutrophils 3.9 10^3/uL (1.4-6.5); Hematocrit 39.1 % (37.0-47.0); Mean Corp Hgb Conc. 33.2 g/dL (33.0-37.0); Mean Corpuscular Hgb 33.2 pg (27.0-31.0); Mean Corpuscular Volume 99.7 fL (81.0-99.0); Mean Platelet Volume 10.4 fL (7.4-10.4); Nucleated Red Blood Cells % 0 %; Platelet Count 205 10^3/uL (130-400); Red Blood Cell Count 3.92 10^6/uL (4.20-5.40); Red Cell Dist. Width 13.4 % (11.5-14.5); White Blood Cell Count 6.5 10^3/uL (4.8-10.8)
[2023-12-01 08:13] LABS: ALT (SGPT) 82 U/L (0-35); AST (SGOT) 116 U/L (14-36); Albumin 3.6 g/dl (3.5-5.0); Alkaline Phosphatase 74 U/L (38-126); Blood Urea Nitrogen 16 mg/dl (7-17); Calcium 9.4 mg/dl (8.4-10.2); Carbon Dioxide 26 mmol/L (22-30); Chloride 102 mmol/L (98-107); Estimated Creatinine Clearance 100 ml/min; Glucose 109 mg/dl (70-99); Potassium 4.1 mmol/L (3.5-5.1); Sodium 137 mmol/L (135-145); Total Protein 6.3 g/dl (6.3-8.2); eGFR > 60.00
[2023-12-01] MEDS: PROCARDIA XL (EXTENDED RELEASE) 60 MG PO (08:31)
[2023-12-01] MEDS: VITAMIN B1 100 MG PO ×2 (08:31→22:11)
[2023-12-01] MEDS: NSS (PRESERVATIVE FREE) 10 ML IV (08:32)
[2023-12-01] MEDS: FOLVITE 1 MG PO (08:32)
[2023-12-01] MEDS: ALDACTONE 25 MG PO (08:32)
[2023-12-01] MEDS: PROTONIX IV 40 MG IV (08:32)
--- NOTE | 2023-12-01 11:48 | CM ---
maintenance department manager met with patient this morning and plan is to home when stable, patient will need a walker and physician is aware that he will need to write a script for a walker, patient declined [facility], patient does not meet criteria for home care as
patient is not homebound.
Plan; Home when stable.
--- NOTE | 2023-12-01 13:32 | W.PN.HOSP.TC ---
Today's Communication/Plan
-
dc in 24 hours
Assessment / Plan
Assessment / Plan
Assessment:
Dizziness likely deconditioning in setting of ETOH intake/WD
- orthostatics and CT head negative
- ongoing PT/OT to improving deconditioning which is likely etiology of dizziness
- patient wants home dc
Alcohol Use Disorder with Acute Withdrawal Symptoms
Anion Gap Metabolic Acidosis
Hypokalemia with Hypomagnesemia
Mild Hyponatremia
- continue MSAS protocol and prn Ativan, IVF, electrolyte replacement, etc.
ETOH hepatitis
- monitor LFTs
Benign Hypertension
- Continue usual outpatient medications with holding parameters.
Hypokalemia - replete prn
Leukocytosis
- Possible stress response.�No evidence of acute infectious process, etc.
- Observe off of abx for now.
- Follow for fevers, focal symptoms, changes in CBC, etc.
Obesity due to excess calories
- Affects all aspects of care.
- Encourage healthy lifestyle and increased exercise with goal of weight loss.
DVT Prophylaxis:�SCDs
Code Status:�Full
Anticipated Discharge: Within 24 hours
Subjective/Interval History
-
Date of Service: December 01, 2023
dizziness improving, asking to stay 1 more evening due to lack of help at home
Objective Data
-
Labs:
Laboratory Results
12/01/23
06:44
WBC 6.5
Hgb 13.0
Hct 39.1
Plt Count 205
Sodium 137
Potassium 4.1
Chloride 102
Carbon Dioxide 26
BUN 16
Creatinine 0.7
Glucose 109 H
Calcium 9.4
Total Bilirubin 1.0
AST 116 H
ALT 82 H
Alkaline Phosphatase 74
Vital Signs:
Vital Signs
Temp Pulse Resp BP Pulse Ox
98.3 F 97 16 117/81 94
12/01/23 11:50 12/01/23 11:50 12/01/23 11:50 12/01/23 11:50 12/01/23 11:50
I&O
11/30/23 12/01/23 12/02/23
06:59 06:59 06:59
Intake Total 2700 / 2700 960 / 960
Balance 2700 / 2700 960 / 960
Physical Exam
-
General: No Apparent Distress
HEENT: Normocephalic and Atraumatic
Respiratory: Negative Wheezes or Rales
Cardiac: Regular Rhythm and S1/S2
GI: Soft
Genito-urinary: No Costovertebral Tender
Neuro: AO x 3
Hematologic / Lymphatic: No Lymphadenopathy
Psych: Calm
Data Reviewed
-
Total Time Spent with Patient (in minutes): 47
Labs: Labs Reviewed by me
[2023-12-02] MEDS: ATIVAN 1 MG PO (02:44)
[2023-12-02 02:52] VITALS: BP 150/101
[2023-12-02 06:00] VITALS: BMI 39.6
[2023-12-02 06:26] LABS: % Basophils 0.2 % (0-2); % Immature Granulocytes 0.3 % (0-0.5); % Lymphocytes 27.1 % (20.5-51.1); % Neutrophils 61.4 % (42.2-75.2); Absolute Eosinophils 0.1 10^3/uL (0-0.7); Absolute Lymphocytes 1.6 10^3/uL (1.2-3.4); Absolute Monocytes 0.5 10^3/uL (0.1-0.6); Absolute Neutrophils 3.7 10^3/uL (1.4-6.5); Hematocrit 36.7 % (37.0-47.0); Hemoglobin 12.3 g/dL (12.0-16.0); Mean Corp Hgb Conc. 33.5 g/dL (33.0-37.0); Mean Corpuscular Hgb 33.7 pg (27.0-31.0); Mean Corpuscular Volume 100.5 fL (81.0-99.0); Mean Platelet Volume 10.1 fL (7.4-10.4); Nucleated Red Blood Cells % 0 %; Platelet Count 168 10^3/uL (130-400); Red Blood Cell Count 3.65 10^6/uL (4.20-5.40); Red Cell Dist. Width 13.5 % (11.5-14.5)
[2023-12-02 06:59] LABS: ALT (SGPT) 117 U/L (0-35); AST (SGOT) 128 U/L (14-36); Albumin 3.7 g/dl (3.5-5.0); Alkaline Phosphatase 76 U/L (38-126); Blood Urea Nitrogen 14 mg/dl (7-17); Calcium 9.2 mg/dl (8.4-10.2); Carbon Dioxide 26 mmol/L (22-30); Chloride 105 mmol/L (98-107); Estimated Creatinine Clearance 101 ml/min; Glucose 102 mg/dl (70-99); Potassium 4.1 mmol/L (3.5-5.1); Sodium 135 mmol/L (135-145); Total Bilirubin 0.7 mg/dl (0.2-1.3); Total Protein 6.3 g/dl (6.3-8.2); eGFR > 60.00
[2023-12-02 07:55] VITALS: BP 158/111
--- NOTE | 2023-12-02 09:05 | CM ---
Home when stable, [facility]an has been provided with a walker.
Plan; Home when stable.
[2023-12-02] MEDS: PROTONIX IV IV ×2 (09:30→09:57)
[2023-12-02] MEDS: NSS (PRESERVATIVE FREE) IV ×2 (09:31→09:57)
[2023-12-02] MEDS: VITAMIN B1 100 MG PO (09:34)
[2023-12-02] MEDS: PROCARDIA XL (EXTENDED RELEASE) PO (09:34)
[2023-12-02] MEDS: FOLVITE 1 MG PO (09:35)
[2023-12-02] MEDS: PROCARDIA XL (EXTENDED RELEASE) 60 MG PO (09:40)
[2023-12-02] MEDS: ALDACTONE 25 MG PO (09:41)
[2023-12-02] MEDS: FLUSH (NSS) 1 FLUSH IV (09:41)
--- NOTE | 2023-12-02 10:53 | W.PN.HOSP.TC ---
Today's Communication/Plan
-
dc home with resumption of home meds, MV and outpatient ETOH rehab services
Assessment / Plan
Assessment / Plan
Assessment:
Dizziness likely deconditioning in setting of ETOH intake/WD
- orthostatics and CT head negative
- ongoing PT/OT to improving deconditioning which is likely etiology of dizziness
- patient wants home dc
Alcohol Use Disorder with Acute Withdrawal Symptoms
Anion Gap Metabolic Acidosis
Hypokalemia with Hypomagnesemia
Mild Hyponatremia
- continue MSAS protocol and prn Ativan, IVF, electrolyte replacement, etc.
ETOH hepatitis
- monitor LFTs
Benign Hypertension
- Continue usual outpatient medications with holding parameters.
Hypokalemia - replete prn
Leukocytosis
- Possible stress response.�No evidence of acute infectious process, etc.
- Observe off of abx for now.
- Follow for fevers, focal symptoms, changes in CBC, etc.
Obesity due to excess calories
- Affects all aspects of care.
- Encourage healthy lifestyle and increased exercise with goal of weight loss.
DVT Prophylaxis:�SCDs
Code Status:�Full
More than 30 minutes spent in discharge including
Final examination of the patient
Summarizing hospital stay
Instructions for continuing care to all relevant caregivers
Preparation of discharge records, prescriptions, and referral forms
Total time spent (in minutes): 40
Anticipated Discharge: Today
Subjective/Interval History
-
Date of Service: December 02, 2023
denies any new complaints
Objective Data
-
Labs:
Laboratory Results
12/02/23
05:46
WBC 6.0
Hgb 12.3
Hct 36.7 L
Plt Count 168
Sodium 135
Potassium 4.1
Chloride 105
Carbon Dioxide 26
BUN 14
Creatinine 0.7
Glucose 102 H
Calcium 9.2
Total Bilirubin 0.7
AST 128 H
ALT 117 H
Alkaline Phosphatase 76
Vital Signs:
Vital Signs
Temp Pulse Resp BP Pulse Ox
98.3 F 87 18 158/111 99
12/02/23 07:55 12/02/23 07:55 12/02/23 07:55 12/02/23 07:55 12/02/23 07:55
I&O
12/01/23 12/02/23 12/03/23
06:59 06:59 06:59
Intake Total 960 / 960 2099 / 2099
Balance 960 / 960 2099 / 2099
Physical Exam
-
General: No Apparent Distress
HEENT: Normocephalic and Atraumatic
Respiratory: Negative Wheezes or Rales
Cardiac: Regular Rhythm and S1/S2
GI: Soft
Genito-urinary: No Costovertebral Tender
Musculoskeletal: No Edema
Neuro: AO x 3
Hematologic / Lymphatic: No Lymphadenopathy
Psych: Calm
Data Reviewed
-
Total Time Spent with Patient (in minutes): 45
Labs: Labs Reviewed by me
--- NOTE | 2023-12-02 11:01 | W.DS.TRANS ---
DC Summary - Engineer Intern
-
Discharge Instructions:
Discharge Diagnosis/Procedures alcohol withdrawal with dizziness from chronic
alcohol use
Diet Regular
Activity As tolerated
Bathing Restrictions None
Instructions:
Stand-Alone Forms:
Changes to Home Medications: No
Discharge Medications:
DC Medications w/original date entered in [facility]
albuterol sulfate 90 mcg/actuation aerosol inhaler 2 puff inhalation R [id number] PRN SOB 11/28/23
[id number] 8 mg-folic 400 mcg-K 50 mcg-lutein 300 mcg tablet (Centrum Silver Women) 1 tab PO DAILY #100 tabs 12/02/23
nifedipine 60 mg tablet,extended release 24 hr 60 mg PO DAILY Blood Pressure #30 tabs 12/02/23
pantoprazole 40 mg tablet,delayed release (Protonix) 40 mg PO DAILY #30 tabs 12/02/23
spironolactone 25 mg tablet 25 mg PO DAILY #30 tabs 12/02/23
Home Medication Changes
Pending Results: No
Total time spent discharging patient (in min): 45
[2023-12-02 11:30] VITALS: BP 141/96
[2023-12-02] MEDS: VISINE EYE DROPS 1 DROP BOTH EYES (13:27)
== END 2023-12-02 17:08 | disposition home or self-care (01) | DRG 897 ==
LOC: 4 WEST ACU 04:10
PROVIDERS: Nurse Practitioner Family; ADMITTING PHYSICIAN Hospitalist; ATTENDING PHYSICIAN Internal Medicine; EMERGENCY PHYSICIAN Student in an Organized Health Care Education/Training Program; FAMILY PHYSICIAN Family Medicine
DX: F10.239 Alcohol dependence with withdrawal, unspecified (principal); E87.20 Acidosis, unspecified; E87.1 Hypo-osmolality and hyponatremia; F10.229 Alcohol dependence with intoxication, unspecified; E87.6 Hypokalemia; I10 Essential (primary) hypertension; E66.09 Other obesity due to excess calories; Z68.39 Body mass index [BMI] 39.0-39.9, adult; K70.10 Alcoholic hepatitis without ascites; E83.42 Hypomagnesemia; Z11.52 Encounter for screening for COVID-19
CPT/HCPCS: 70450; 80048; 80051; 80053; 80306; 81003; 81015; 82077; 82248; 83735; 84100; 84439; 84443; 85025; 85027; 87502; 87811; 93005; 96365; 96375; 96376; 97116; 97163; 97530; 97535; 99291

== ENCOUNTER → 2024-01-20 10:37 | Outpatient (REF) | payer OTHER, SELFPAY | LOC: RAD 10:37 | PROVIDERS: ATTENDING PHYSICIAN Physician Assistant Medical | DX: M54.41 Lumbago with sciatica, right side (principal); M54.42 Lumbago with sciatica, left side; M25.551 Pain in right hip; M25.552 Pain in left hip; M51.26 Other intervertebral disc displacement, lumbar region | CPT/HCPCS: 72110; 73522 ==

== ENCOUNTER 2024-02-21 07:23 | Emergency (ER) | payer OTHER, SELFPAY ==
[2024-02-21 07:26] VITALS: BP 194/118
[2024-02-21 07:45] VITALS: BMI 37.4
[2024-02-21 07:46] VITALS: BP 190/113
--- NOTE | 2024-02-21 08:00 | ED.GENMED ---
History of Present Illness
General
Chief Complaint: Alcohol Problem
Source: patient
Exam Limitations: none
Time Seen by Provider: 02/21/24 07:38
Nursing documentation reviewed up to this point in time: agreed with
Travel History
Have you had any contact with someone who has COVID-19?: No
Do you have any symptoms of coronavirus? Fever > 100 degrees, chills, cough, shortness of breath, sore throat, loss of taste or smell, muscle aches, or headache?: No
History of Present Illness
History of Present Illness:
Patient with history of chronic alcoholism, presents ED secondary to continual alcohol intake, now associated with recurrent 'shaking', dizziness, nausea and vomiting over the past 24 hours. Patient admits to having had alcohol around 4 AM this
morning, in hopes of alleviating her symptoms, but feels worse. Denies chest pain. Denies shortness of breath. Denies fever. Denies headache. Denies abdominal pain. Denies use of any other illicit medications.
Past History
Past History
ED Past Medical History: HTN, Psychiatric and Other (Alcoholism)
ED Past Surgical History: None and Other (parathyroidectomy)
Social History
Tobacco: Smoker
Alcohol: Binge drinker
Drug: None
Personal:
Living: with family
Employment: Employed
Family History
Family History: Other (Father with TIA and hypertension)
Review of Systems
Review of Systems
Allergies reviewed?: Yes
All Other Systems: ROS reviewed and negative except as documented in HPI and ROS
Constitutional: Reports no symptoms
EENT: Reports no symptoms
Respiratory: Reports no symptoms; Denies trouble breathing
Cardiac: Reports no symptoms; Denies chest pain
ABD/GI: Reports nausea and vomiting; Denies abdominal pain
Musculoskeletal: Reports no symptoms
Skin: Reports no symptoms
Neurological: Reports other (Tremor); Denies dizzy
Phy Exam
Physical Exam
Physical Exam:
Physical Exam
General: moderate distress, not acutely ill. afebrile
Head: nc/at. eomi.
Neck: supple. no meningeal signs.
Heart: tachycardic, no murmur. equal radial pulses.
Lungs: no acute respiratory distress. clear bilaterally
Abdomen: normal bowel sounds. not tender. no distention
Neuro: alert and oriented. no focal neurological deficits
Skin: no rash
Psychiatric: well kept. interactive and cooperative
Extremities: no edema. no calf tenderness.
Scores
Withdrawal Assessment of Alcohol
Withdrawal Assessment Completed?: Yes
Nausea and Vomiting: No nausea and no vomiting
Tactile Disturbances: None
Tremor: No tremor
Auditory Disturbances: Not present
Paroxysmal Sweats: No sweat visible
Visual Disturbances: Not present
Anxiety: No anxiety, at ease
Headache, Fullness in Head: Not present
Agitation: Normal activity
Orientation and clouding of sensorium: Oriented and can do serial additions
Total CIWA Score: 0
Alcohol Withdrawal Medication Recommendation: Equal to MSAS Score 0-4. Monitor & re-assess q2hrs, NO MEDICATION NEEDED
Course
Orders/Labs/Results
Orders:
Orders
02/21/24 07:43
Electrocardiogram (*1) Urgent
Reason for Study: Bradycardia / Tachycardia
EKG- Treatment ONCE
0.9% Sodium Chloride 1000 ml [Nss] 1,000 ml IV BOLUS
Lorazepam [Ativan] 1 mg IV NOW STA
Ondansetron Injectable [Zofran] 4 mg IV NOW STA
02/21/24 08:05
Alcohol Urgent
Complete Blood Count/No Diff Urgent
Comprehensive Metabolic Panel Urgent
Magnesium Urgent
02/21/24 08:36
Lorazepam [Ativan] 2 mg PO NOW STA
02/21/24 08:51
Magnesium Sulfate 2 Gram/50 ml [Magnesium Sulfate] 2 gram in 50 ml IV NOW
Potassium Chloride [KCl] 40 meq PO NOW STA
02/21/24 12:22
Lorazepam [Ativan] 1 mg PO NOW STA
Abnormal Lab Results
02/21/24
08:05
WBC 13.3 H 10^3/uL
(4.8-10.8)
RBC 4.09 L 10^6/uL
(4.20-5.40)
MCH 31.5 H pg
(27.0-31.0)
Potassium 3.1 L mmol/L
(3.5-5.1)
Carbon Dioxide 20 L mmol/L
(22-30)
Glucose 144 H mg/dl
(70-99)
Magnesium 1.0 L mg/dl
(1.6-2.3)
AST 45 H U/L
(14-36)
02/21/24 08:05
02/21/24 08:05
Vital Signs
Initial and Last Documented VS:
Initial Vital Signs
Temp Pulse Resp BP Pulse Ox
98.0 F 104 16 194/118 98
02/21/24 07:26 02/21/24 07:26 02/21/24 07:26 02/21/24 07:26 02/21/24 07:26
Last Documented Vital Signs
Temp Pulse Resp BP Pulse Ox
98.0 F 102 20 167/119 95
02/21/24 07:26 02/21/24 12:32 02/21/24 12:32 02/21/24 12:00 02/21/24 12:15
MDM/Problems Addressed
MDM/Problems Addressed:
Patient without any further vomiting episodes noted in ED. Hypokalemia and hypomagnesemia treated with replacement. Patient refused inpatient alcohol detox treatment. As such, patient will be discharged home with recommendation to follow-up with
PCP for reevaluation, including repeat blood work, as well as continual outpatient evaluation for potential alcohol rehab.
*EKG
Interpreted by ED Provider?: Yes
EKG Intrepretation Date: 02/21/24
Heart Rate: 102
Rate: tachycardiac
Rhythm: sinus
[place]: left axis deviation
Interval: normal interval and normal QT interval
QRS Pattern: normal QRS
*Critical Care Note
Total Time (30-74mins, 75-104mins- exclusive of procedures): Not Applicable
ED Attending Note
-
Portions of this chart may have been created with voice recognition software.� Occasional wrong word or��sound alike� substitutions may have occurred due to the inherent limitations of voice recognition software.
Discharge Plan
Departure
Patient Disposition: Home (Routine Discharge)
Date of Disposition: 02/21/24
Time of Disposition: 12:12
Patient with high blood pressure during this ER visit?: Yes
Discharge Problem:
Alcoholism, Hypomagnesemia, Acute hypokalemia
Instructions: Hypokalemia, Alcohol Use Disorder (DC), Hypomagnesemia, High-potassium diet
Prescriptions:
New
lorazepam [Ativan] 0.5 mg tablet
0.5 mg PO TID PRN (Reason: alcohol withdrawal) Qty: 7 0RF
ondansetron 4 mg Tablet,Disintegrating
4 mg PO TIDPRN PRN (Reason: nausea/vomiting) Qty: 12 0RF
No Action
albuterol sulfate 90 mcg/actuation HFA aerosol inhaler
2 puff INHALATION R Q4HPRN PRN (Reason: SOB)
Centrum Silver Women 8 mg iron-400 mcg-50 mcg tablet
1 tab PO DAILY Qty: 100 0RF
spironolactone 25 mg Tablet
25 mg PO DAILY Qty: 30 0RF
nifedipine 60 mg Tablet Extended Release 24hr
60 mg PO DAILY Qty: 30 0RF
ibuprofen 200 mg Tablet
1,600 mg PO BID
Referrals:
Sandra Patton MD [Family Provider] -
Activity Restrictions/Additional Instructions:
As discussed, please follow-up with your primary care physician for reevaluation as well as continual rehab treatment for alcohol disorder. In addition, recommend repeat blood work within 1 week. Your prescriptions have been sent electronically to
[facility] pharmacy in [place].
Interventions
Interventions:
*Risk Screen - Suicide Last Done: 02/21/24 07:45
*General Assessment Last Done: 02/21/24 07:45
*Neglect/Abuse Screening Last Done: 02/21/24 07:45
ED- Fall Risk Assessment Last Done: 02/21/24 07:45
*ED COVID-19 Vaccine History Last Done: 02/21/24 07:26
*Nursing Disposition Last Done: 02/21/24 12:45
ED- Neurological Assessment Last Done: 02/21/24 07:45
ED-Psychological Assessment Last Done: 02/21/24 07:45
Discharge Date and Time
Discharge Date/Time: 02/21/24 12:46
Print Language: LUX[place]BOURG[place]
[2024-02-21] MEDS: NSS 1000 IV (08:10)
[2024-02-21] MEDS: ATIVAN 1 MG IV (08:10)
[2024-02-21] MEDS: ZOFRAN 4 MG IV (08:10)
--- NOTE | 2024-02-21 08:15 | EDRN ---
Received patient on stretcher with c/o nausea and shaking from ETOH that started last night. Patient stated that she last drank this morning around 0400. Patient stated 'I have a counselor from my ETOH abuse and have an ortho appointment tomorrow'
when asked if she was interested in going to rehab. Patient stated 'I started drinking again to help the pain in my hips. I was taking Tramadol but ran out and I can't get anymore from my PCP because I am no longer under her care. I hope the doctor
tomorrow will give me something.' Patient medicated with Zofran 4mg IV and Ativan 1mg IV as ordered. Patient stated 'Is that going to be enough Ativan' when told how much she was given when she asked.
[2024-02-21 08:21] LABS: Hematocrit 37.3 % (37.0-47.0); Hemoglobin 12.9 g/dL (12.0-16.0); Mean Corp Hgb Conc. 34.6 g/dL (33.0-37.0); Mean Corpuscular Hgb 31.5 pg (27.0-31.0); Mean Corpuscular Volume 91.2 fL (81.0-99.0); Platelet Count 368 10^3/uL (130-400); Red Blood Cell Count 4.09 10^6/uL (4.20-5.40); Red Cell Dist. Width 11.9 % (11.5-14.5); White Blood Cell Count 13.3 10^3/uL (4.8-10.8)
[2024-02-21 08:33] LABS: ALT (SGPT) 31 U/L (0-35); AST (SGOT) 45 U/L (14-36); Albumin 4.6 g/dl (3.5-5.0); Alkaline Phosphatase 113 U/L (38-126); Blood Urea Nitrogen 13 mg/dl (7-17); Calcium 9.7 mg/dl (8.4-10.2); Carbon Dioxide 20 mmol/L (22-30); Chloride 101 mmol/L (98-107); Estimated Creatinine Clearance 112 ml/min; Glucose 144 mg/dl (70-99); Potassium 3.1 mmol/L (3.5-5.1); Sodium 135 mmol/L (135-145); Total Bilirubin 1.1 mg/dl (0.2-1.3); Total Protein 7.4 g/dl (6.3-8.2); eGFR > 60.00
[2024-02-21 08:34] LABS: Alcohol None Detected
[2024-02-21] MEDS: ATIVAN 2 MG PO (08:40)
[2024-02-21 09:00] VITALS: BP 180/116
[2024-02-21] MEDS: MAGNESIUM SULFATE 50 IV (09:28)
[2024-02-21] MEDS: KCL 40 MEQ PO (11:15)
[2024-02-21 11:18] VITALS: BP 169/113
[2024-02-21 12:00] VITALS: BP 167/119
[2024-02-21] MEDS: ATIVAN 1 MG PO (12:28)
== END 2024-02-21 12:46 | disposition home or self-care (01) ==
LOC: EMR 07:23
PROVIDERS: EMERGENCY PHYSICIAN Emergency Medicine; FAMILY PHYSICIAN Obstetrics & Gynecology Gynecology
DX: F10.20 Alcohol dependence, uncomplicated (principal); E83.42 Hypomagnesemia; E87.6 Hypokalemia; I10 Essential (primary) hypertension; F17.200 Nicotine dependence, unspecified, uncomplicated
CPT/HCPCS: 99284; 96365; 96366; 96375; 96361; 80053; 82077; 83735; 85027; 93005

== ENCOUNTER 2024-04-11 19:56 | Emergency (ER) | payer OTHER, SELFPAY ==
[2024-04-11 19:58] VITALS: BP 130/84
== END 2024-04-11 20:23 ==
LOC: EMR 19:56
DX: M25.551 Pain in right hip (principal); W19.XXXA Unspecified fall, initial encounter; Z53.21 Procedure and treatment not carried out due to patient leaving prior to being seen by health care provider; Z96.641 Presence of right artificial hip joint
CPT/HCPCS: 99281; 73502

== ENCOUNTER 2024-04-19 08:52 | Inpatient (IN) | payer OTHER, SELFPAY ==
[2024-04-18] VITALS (9 sets, daily range): BP systolic 108–148; BP diastolic 82–95; BMI 37.1
[2024-04-18 14:32] LABS: % Basophils 0.3 % (0-2); % Eosinophils 0.2 % (0-6); % Immature Granulocytes 0.3 % (0-0.5); % Lymphocytes 14.5 % (20.5-51.1); % Monocytes 4.2 % (1.7-9.3); % Neutrophils 80.5 % (42.2-75.2); Absolute Lymphocytes 1.5 10^3/uL (1.2-3.4); Absolute Monocytes 0.4 10^3/uL (0.1-0.6); Absolute Neutrophils 8.5 10^3/uL (1.4-6.5); Hematocrit 34.5 % (37.0-47.0); Hemoglobin 12.1 g/dL (12.0-16.0); Mean Corp Hgb Conc. 35.1 g/dL (33.0-37.0); Mean Corpuscular Hgb 32.1 pg (27.0-31.0); Mean Corpuscular Volume 91.5 fL (81.0-99.0); Mean Platelet Volume 8.9 fL (7.4-10.4); Nucleated Red Blood Cells % 0 %; Platelet Count 318 10^3/uL (130-400); Red Blood Cell Count 3.77 10^6/uL (4.20-5.40); Red Cell Dist. Width 13.5 % (11.5-14.5); White Blood Cell Count 10.5 10^3/uL (4.8-10.8)
[2024-04-18] MEDS: ATIVAN 1 MG IV ×2 (14:49→17:09)
[2024-04-18] MEDS: NSS 1000 IV ×2 (14:50→23:36)
[2024-04-18 14:52] LABS: Alcohol None Detected; Blood Urea Nitrogen 10 mg/dl (7-17); Calcium 10.2 mg/dl (8.4-10.2); Carbon Dioxide 23 mmol/L (22-30); Chloride 97 mmol/L (98-107); Glucose 122 mg/dl (70-99); Potassium 3.6 mmol/L (3.5-5.1); Sodium 133 mmol/L (135-145); eGFR > 60.00
[2024-04-18] MEDS: TYLENOL 1000 MG PO (15:09)
--- NOTE | 2024-04-18 15:14 | ED.GENMED ---
History of Present Illness
<NEAL Franklin Last Filed: 04/18/24 15:17>
General
Chief Complaint: Withdrawal Symptoms
Source: patient
Exam Limitations: none
Time Seen by Provider: 04/18/24 14:14
History of Present Illness
History of Present Illness:
59-year-old female presents for evaluation of her alcohol withdrawal symptoms. She states she had a drink this morning. She had been drinking about a bottle of wine and perhaps 5 shots of vodka daily. She is trying to stop on her own but she is
developing withdrawal symptoms. She notes dizziness and shakes as well as a tremor. She denies hallucinations. She has never had a withdrawal seizure in her past. No other complaints at this time
Past History
<NEAL Franklin Last Filed: 04/18/24 15:17>
Past History
ED Past Medical History: HTN, Psychiatric and Other (Alcoholism)
ED Past Surgical History: None and Other (parathyroidectomy)
Social History
Tobacco: Smoker
Alcohol: Binge drinker
Drug: None
Personal:
Living: with family
Employment: Employed
Family History
Family History: Other (Father with TIA and hypertension)
Phy Exam
<NEAL Franklin Last Filed: 04/18/24 15:17>
Physical Exam
Physical Exam:
General: Well-developed female no acute respiratory distress
HEENT: Normocephalic moist neck is supple no nystagmus
Heart: Tachycardic but regular
Lungs: Clear no wheeze
Neurologic: Alert and oriented x 3 subtle tremor noted of the left hand mainly.
Skin warm no diaphoresis no rash
Remedies: No cyanosis
Course
<NEAL Franklin Last Filed: 04/18/24 15:17>
Orders/Labs/Results
Orders:
Orders
04/18/24 14:18
Alcohol Urgent
Basic Metabolic Panel Urgent
Complete Blood Count/With Diff Urgent
04/18/24 14:38
0.9% Sodium Chloride 1000 ml [Nss] 1,000 ml IV BOLUS
04/18/24 14:40
Lorazepam [Ativan] 1 mg IV NOW STA
04/18/24 Dinner
Regular
At Your Request: Full Participation
04/18/24 15:07
Acetaminophen [Tylenol] 1,000 mg PO NOW STA
04/18/24 15:08
Acetaminophen [Tylenol] 1,000 mg .ROUTE .STK-MED ONE
04/18/24 17:05
Lorazepam [Ativan] 1 mg IV NOW STA
04/18/24 18:25
Lorazepam [Ativan] 2 mg IV NOW STA
04/18/24 20:14
EKG [Electrocardiogram (*1)] Urgent
Reason for Study: Vertigo / Dizzy
EKG- Treatment ONCE
Multivitamin [Theragran] 1 tablet PO NOW STA
Thiamine HCl [Vitamin B1] 100 mg PO NOW STA
04/18/24 22:14
Admit/Transfer Patient As Directed
Co-Sign Provider:
Level of Care: Observation services
Assign to:: Telemetry
Physician / Group: ailyn
Diagnosis: alcohol withdrawal
Reason for Telemetry: Arrhythmia
Date to Stop Telemetry: 04/21/24
Time to Stop Telemetry: 11:00
04/18/24 22:16
Code Status As Directed
Resuscitation Status: Full Code
04/18/24 22:17
0.9% Sodium Chloride [Nss (Preservative Free)] See Protocol IV PRN PRN
FOLic ACID [Folvite] 1 mg 0.9% Sodium Chloride 50 ml [Nss] 50 ml IV DAILYPRN
Lorazepam [Ativan] 1 mg IV Q1HPRN PRN
Lorazepam [Ativan] 1 mg PO Q2HPRN PRN
Lorazepam [Ativan] 2 mg IV Q1HPRN PRN
Phenobarbital Sodium [Phenobarbital] 260 mg 0.9% Sodium Chloride 100 ml [Nss] 100 ml IV NOW
MSAS SCORE As Directed
MSAS Score 0-4: Repeat MSAS every 2 hours until 0-4 for three consecutive assessments, then every 4 hours x 48
hours.
MSAS Score 5-7: For MILD withdrawl symptoms. Repeat MSAS and RASS every 2 hours
MSAS Score 8-11: For MODERATE withdrawal symptoms. Repeat MSAS and RASS every 1 hour. Consider ICU or IMU
level of care.
MSAS Score > 11: For SEVERE withdrawal symptoms. Repeat MSAS and RASS every 1 hour. Notify provider, consider
ICU level of care.
MSAS Additional Instructions: If no improvement or no decrease in score from severe to moderate within 12
hours, consult psychiatry
MSAS Notify Provider: Notify provider if patient requires more than 10 mg of Lorazepam in eight hour period.
04/18/24 23:00
Flush (0.9% Sodium Chloride) [Flush (Nss)] See Dose Instructions IV PER PROTOCOL
04/18/24 23:11
0.9% Sodium Chloride 1000 ml [Nss] 1,000 ml IV 100 mls/hr
Ondansetron Injectable [Zofran] 4 mg IV Q6HPRN PRN
04/18/24 23:11
Activity As Directed
Activity Level: As Tolerated
Vital Signs As Directed
Frequency: Per unit guidelines
DX Deep Vein Thrombosis Video Routine
04/18/24 23:28
Fentanyl, Urine Urgent
Urinalysis Reflex To Culture Urgent
Date Specimen was Collected: 04/18/24
Time Specimen was Collected: 23:20
Urine Drug Abuse Screen Urgent
Date Specimen was Collected: 04/18/24
Time Specimen was Collected: 23:20
Urine Microscopic Reflex Cult Urgent
Urine Culture Urgent
TRICE Source: U
Specimen Description:
Date Specimen was Collected: 04/18/24
Time Specimen was Collected: 23:20
04/18/24 23:39
Acetaminophen [Tylenol] 650 mg PO NOW STA
04/19/24
DIETARY CONSULT Routine
Reason for Consult: weight loss
04/19/24 00:15
Pt Screening Request from Valentin Routine
04/19/24 05:16
Acetaminophen [Tylenol] 650 mg PO Q6HPRN PRN
04/19/24 05:19
Prochlorperazine [Compazine] 5 mg IV NOW STA
04/19/24 06:10
Complete Blood Count/With Diff IN AM
Comprehensive Metabolic Panel IN AM
04/19/24 08:00
0.9% Sodium Chloride [Nss (Preservative Free)] 10 ml IV DAILY
FOLic ACID [Folvite] 1 mg PO DAILY
Heparin 5,000 units SC Q12
Miconazole Nitrate [Desenex/Mitrazol/Zeasorb] See Dose Instructions TOPICAL BID
NIFEdipine EXTENDED RELEASE [Procardia Xl (Extended Release)] 60 mg PO DAILY
Pantoprazole [Protonix IV] 40 mg IV DAILY
Phenobarbital Sodium [Phenobarbital] 97.5 mg IV TID
Thiamine Injection 200 mg IV Q12
04/19/24 08:20
Request for Physical Therapy [NOTICE] Routine
04/21/24 08:00
Phenobarbital [Luminal] 64.8 mg PO TID
04/21/24 11:00
DC Protocol for Telemetry ONCE
04/23/24 08:00
Phenobarbital [Luminal] 32.4 mg PO TID
Abnormal Lab Results
04/18/24 04/18/24 04/19/24
14:18 23:28 06:10
RBC 3.77 L 10^6/uL 3.55 L 10^6/uL
(4.20-5.40) (4.20-5.40)
Hgb 11.4 L g/dL
(12.0-16.0)
Hct 34.5 L % 33.4 L %
(37.0-47.0) (37.0-47.0)
MCH 32.1 H pg 32.1 H pg
(27.0-31.0) (27.0-31.0)
Absolute Neuts (auto) 8.5 H 10^3/uL
(1.4-6.5)
Neutrophils % 80.5 H %
(42.2-75.2)
Lymphocytes % 14.5 L %
(20.5-51.1)
Sodium 133 L mmol/L
(135-145)
Chloride 97 L mmol/L
(98-107)
Creatinine 0.5 L mg/dL
(0.6-1.0)
Glucose 122 H mg/dl 109 H mg/dl
(70-99) (70-99)
Ur Occult Blood Reflex 1+ A
(Negative)
Leukocyte Esterase Rfl Trace A
(Negative)
Urine RBC 7-10 A /HPF
(0-2)
Urine WBC (Reflex) 11-15 A /HPF
(0-5)
Urine Bacteria (Reflex) Many A
(Negative)
U Benzodiazepines Scrn Positive H
(Negative)
04/19/24 06:10
04/19/24 06:10
Vital Signs
Initial and Last Documented VS:
Initial Vital Signs
Temp Pulse Resp BP Pulse Ox
100.1 F 127 26 148/94 94
04/18/24 14:03 04/18/24 14:03 04/18/24 14:03 04/18/24 14:03 04/18/24 14:03
Last Documented Vital Signs
Temp Pulse Resp BP Pulse Ox
98.7 F 114 17 146/110 98
04/19/24 15:00 04/19/24 15:00 04/19/24 15:00 04/19/24 15:00 04/19/24 15:00
<Bryan Caballero Jr., PA-C - Last Filed: 04/19/24 18:06>
Orders/Labs/Results
Orders:
Orders
04/18/24 14:18
Alcohol Urgent
Basic Metabolic Panel Urgent
Complete Blood Count/With Diff Urgent
04/18/24 14:38
0.9% Sodium Chloride 1000 ml [Nss] 1,000 ml IV BOLUS
04/18/24 14:40
Lorazepam [Ativan] 1 mg IV NOW STA
04/18/24 Dinner
Regular
At Your Request: Full Participation
04/18/24 15:07
Acetaminophen [Tylenol] 1,000 mg PO NOW STA
04/18/24 15:08
Acetaminophen [Tylenol] 1,000 mg .ROUTE .STK-MED ONE
04/18/24 17:05
Lorazepam [Ativan] 1 mg IV NOW STA
04/18/24 18:25
Lorazepam [Ativan] 2 mg IV NOW STA
04/18/24 20:14
EKG [Electrocardiogram (*1)] Urgent
Reason for Study: Vertigo / Dizzy
EKG- Treatment ONCE
Multivitamin [Theragran] 1 tablet PO NOW STA
Thiamine HCl [Vitamin B1] 100 mg PO NOW STA
04/18/24 22:14
Admit/Transfer Patient As Directed
Co-Sign Provider:
Level of Care: Observation services
Assign to:: Telemetry
Physician / Group: ailyn
Diagnosis: alcohol withdrawal
Reason for Telemetry: Arrhythmia
Date to Stop Telemetry: 04/21/24
Time to Stop Telemetry: 11:00
04/18/24 22:16
Code Status As Directed
Resuscitation Status: Full Code
04/18/24 22:17
0.9% Sodium Chloride [Nss (Preservative Free)] See Protocol IV PRN PRN
FOLic ACID [Folvite] 1 mg 0.9% Sodium Chloride 50 ml [Nss] 50 ml IV DAILYPRN
Lorazepam [Ativan] 1 mg IV Q1HPRN PRN
Lorazepam [Ativan] 1 mg PO Q2HPRN PRN
Lorazepam [Ativan] 2 mg IV Q1HPRN PRN
Phenobarbital Sodium [Phenobarbital] 260 mg 0.9% Sodium Chloride 100 ml [Nss] 100 ml IV NOW
MSAS SCORE As Directed
MSAS Score 0-4: Repeat MSAS every 2 hours until 0-4 for three consecutive assessments, then every 4 hours x 48
hours.
MSAS Score 5-7: For MILD withdrawl symptoms. Repeat MSAS and RASS every 2 hours
MSAS Score 8-11: For MODERATE withdrawal symptoms. Repeat MSAS and RASS every 1 hour. Consider ICU or IMU
level of care.
MSAS Score > 11: For SEVERE withdrawal symptoms. Repeat MSAS and RASS every 1 hour. Notify provider, consider
ICU level of care.
MSAS Additional Instructions: If no improvement or no decrease in score from severe to moderate within 12
hours, consult psychiatry
MSAS Notify Provider: Notify provider if patient requires more than 10 mg of Lorazepam in eight hour period.
04/18/24 23:00
Flush (0.9% Sodium Chloride) [Flush (Nss)] See Dose Instructions IV PER PROTOCOL
04/18/24 23:11
0.9% Sodium Chloride 1000 ml [Nss] 1,000 ml IV 100 mls/hr
Ondansetron Injectable [Zofran] 4 mg IV Q6HPRN PRN
04/18/24 23:11
Activity As Directed
Activity Level: As Tolerated
Vital Signs As Directed
Frequency: Per unit guidelines
DX Deep Vein Thrombosis Video Routine
04/18/24 23:28
Fentanyl, Urine Urgent
Urinalysis Reflex To Culture Urgent
Date Specimen was Collected: 04/18/24
Time Specimen was Collected: 23:20
Urine Drug Abuse Screen Urgent
Date Specimen was Collected: 04/18/24
Time Specimen was Collected: 23:20
Urine Microscopic Reflex Cult Urgent
Urine Culture Urgent
TRICE Source: U
Specimen Description:
Date Specimen was Collected: 04/18/24
Time Specimen was Collected: 23:20
04/18/24 23:39
Acetaminophen [Tylenol] 650 mg PO NOW STA
04/19/24
DIETARY CONSULT Routine
Reason for Consult: weight loss
04/19/24 00:15
Pt Screening Request from Valentin Routine
04/19/24 05:16
Acetaminophen [Tylenol] 650 mg PO Q6HPRN PRN
04/19/24 05:19
Prochlorperazine [Compazine] 5 mg IV NOW STA
04/19/24 06:10
Complete Blood Count/With Diff IN AM
Comprehensive Metabolic Panel IN AM
04/19/24 08:00
0.9% Sodium Chloride [Nss (Preservative Free)] 10 ml IV DAILY
FOLic ACID [Folvite] 1 mg PO DAILY
Heparin 5,000 units SC Q12
Miconazole Nitrate [Desenex/Mitrazol/Zeasorb] See Dose Instructions TOPICAL BID
NIFEdipine EXTENDED RELEASE [Procardia Xl (Extended Release)] 60 mg PO DAILY
Pantoprazole [Protonix IV] 40 mg IV DAILY
Phenobarbital Sodium [Phenobarbital] 97.5 mg IV TID
Thiamine Injection 200 mg IV Q12
04/19/24 08:20
Request for Physical Therapy [NOTICE] Routine
04/21/24 08:00
Phenobarbital [Luminal] 64.8 mg PO TID
04/21/24 11:00
DC Protocol for Telemetry ONCE
04/23/24 08:00
Phenobarbital [Luminal] 32.4 mg PO TID
Abnormal Lab Results
04/18/24 04/18/24 04/19/24
14:18 23:28 06:10
RBC 3.77 L 10^6/uL 3.55 L 10^6/uL
(4.20-5.40) (4.20-5.40)
Hgb 11.4 L g/dL
(12.0-16.0)
Hct 34.5 L % 33.4 L %
(37.0-47.0) (37.0-47.0)
MCH 32.1 H pg 32.1 H pg
(27.0-31.0) (27.0-31.0)
Absolute Neuts (auto) 8.5 H 10^3/uL
(1.4-6.5)
Neutrophils % 80.5 H %
(42.2-75.2)
Lymphocytes % 14.5 L %
(20.5-51.1)
Sodium 133 L mmol/L
(135-145)
Chloride 97 L mmol/L
(98-107)
Creatinine 0.5 L mg/dL
(0.6-1.0)
Glucose 122 H mg/dl 109 H mg/dl
(70-99) (70-99)
Ur Occult Blood Reflex 1+ A
(Negative)
Leukocyte Esterase Rfl Trace A
(Negative)
Urine RBC 7-10 A /HPF
(0-2)
Urine WBC (Reflex) 11-15 A /HPF
(0-5)
Urine Bacteria (Reflex) Many A
(Negative)
U Benzodiazepines Scrn Positive H
(Negative)
04/19/24 06:10
04/19/24 06:10
Vital Signs
Initial and Last Documented VS:
Initial Vital Signs
Temp Pulse Resp BP Pulse Ox
100.1 F 127 26 148/94 94
04/18/24 14:03 04/18/24 14:03 04/18/24 14:03 04/18/24 14:03 04/18/24 14:03
Last Documented Vital Signs
Temp Pulse Resp BP Pulse Ox
98.7 F 114 17 146/110 98
04/19/24 15:00 04/19/24 15:00 04/19/24 15:00 04/19/24 15:00 04/19/24 15:00
<Mahin Toledo PA-C - Last Filed: 04/18/24 15:17>
MDM/Problems Addressed
Differential Diagnosis Includes:
Patient presents with fatigue shakiness nausea. She thinks he is in withdrawal from alcohol. She is tachycardic on exam. Fluids ordered Ativan given. There is no alcohol in her system currently. She has been here recently for hypokalemia and
other metabolic abnormalities however her metabolic profile today is without significant finding. Patient is interested in getting help for her alcohol abuse we will call [facility].
<Bryan Caballero Jr., PA-C - Last Filed: 04/19/24 18:06>
*Critical Care Note
Total Time (30-74mins, 75-104mins- exclusive of procedures): Not Applicable
<Bryan Caballero Jr., PA-C - Last Filed: 04/19/24 18:06>
Update Note
Update Note:
Transition of care to [facility]//patient reassessed claim that she still had significant withdrawal symptoms, heart rate in the 120s was given additional 2 mg of IV Ativan. Case again discussed with the cares that claims that she may be able
to get placement but will need physical therapy assessment due to recent knee replacement. Considering this and requirement of multiple IV doses of benzodiazepine plan to admit for further assessment and placement tomorrow.
ED Attending Note
<Mahin Toledo PA-C - Last Filed: 04/18/24 15:17>
-
Portions of this chart may have been created with voice recognition software.� Occasional wrong word or��sound alike� substitutions may have occurred due to the inherent limitations of voice recognition software.
Discharge Plan
Departure
Patient Disposition: Admit
Date of Disposition: 04/18/24
Time of Disposition: 21:49
Admit to: Telemetry
Admit to doctor: Ruperto
Presentation/result/management discussed w/ accepting MD/DO: Hospitalist
Patient with high blood pressure during this ER visit?: No
Condition: Good
Covid-19: Not Applicable
Discharge Problem:
Alcohol withdrawal
Interventions
Interventions:
*Risk Screen - Suicide Last Done: 04/18/24 14:06
*General Assessment Last Done: 04/18/24 14:06
*Neglect/Abuse Screening Last Done: 04/18/24 14:06
*ED COVID-19 Vaccine History Last Done: 04/18/24 23:59
*Nursing Disposition Last Done: 04/18/24 23:19
ED- Neurological Assessment Last Done: 04/18/24 15:17
ED-Psychological Assessment Last Done: 04/18/24 14:25
Discharge Date and Time
Discharge Date/Time: 04/18/24 23:20
[2024-04-18] MEDS: ATIVAN 2 MG IV (18:33)
--- NOTE | 2024-04-18 20:23 | PTCARENOTE ---
Med Rec Note:
Unable to interview pt, pt obtunded. Home med list compiled from Dr Banda, left unconfirmed.
[2024-04-18] MEDS: THERAGRAN 1 TABLET PO (20:46)
[2024-04-18] MEDS: VITAMIN B1 100 MG PO (20:46)
--- NOTE | 2024-04-18 22:34 | HPS.HSE ---
Family Physician
-
Family Physician: Kahlil Luu
Chief Complaint
-
alcohol withdrawal
History of Present Illness
59-year-old female past medical history of alcohol use disorder, alcoholic hepatitis, hypertension, obesity, presenting for alcohol withdrawal symptoms. She had been drinking a bottle of wine and 5 shots of vodka daily until 3 days ago when she
decided to cut down. She started feeling withdrawal symptoms of shakiness, palpitations, nausea and vomiting so she did start drinking again. She did have her last drink this morning when she had a few shots of vodka. She denies any history of
alcohol withdrawal seizures. She denies abdominal pain. Denies chest pain or shortness of breath.
She denies smoking, marijuana or any other drugs.
She recently had right hip surgery a month ago which has been healing well.
Medical History
Past Medical History
Past Medical History: Reports Other (alcohol use disorder, alcoholic hepatitis, hypertension, obesity,)
Past Surgical History: Reports None
Social History
Tobacco: Non-smoker
Alcohol: Daily
Drug: None
Family History
Family History: Not pertinent
Allergies / Home Medications
Allergies reflects when Allergies were last updated in [facility].
Home Medications with original date entered in [facility]
Allergy/Medication List:
Allergies
Allergy/AdvReac Type Severity Reaction Status Date / Time
No Known Allergies Allergy Verified 04/18/24 14:03
Home Medications
nifedipine 60 mg tablet,extended release 24 hr 60 mg PO DAILY Blood Pressure #30 tabs 12/02/23
docusate sodium 100 mg capsule 100 mg PO BID 04/18/24
gabapentin 100 mg capsule 200 mg PO BID 04/18/24
meloxicam 7.5 mg tablet 15 mg PO DAILY 04/18/24
oxycodone 5 mg tablet 5 mg PO Q4HPRN PRN moderate pain 04/18/24
Review of Systems
-
History Source: Patient
A 12 point ROS was completed and negative except as noted: Yes
Constitutional: Reports No Symptoms
EENT: Reports No Symptoms
Respiratory: Reports No Symptoms
Cardiac: Reports See HPI
Abdomen/GI: Reports See HPI
: Reports No Symptoms
Musculoskeletal: Reports No Symptoms
Skin: Reports No Symptoms
Neurological: Reports See HPI
Endocrine: Reports No Symptoms
Hematologic/Lymphatic: Reports No Symptoms
Psych: Reports No Symptoms
Physical Exam
Vital Signs
Vital Signs
Temp Pulse Resp BP Pulse Ox
100.1 F 99 21 129/90 94
04/18/24 14:03 04/18/24 21:15 04/18/24 21:15 04/18/24 21:00 04/18/24 21:15
Physical Exam
General: Well Developed, Well Nourished and No Apparent Distress
HEENT: NormoCephalic, Moist mucous membranes and Atraumatic
Respiratory: Clear
Cardiac: S1/S2 and Regular Rhythm; No Murmur or Rub
GI: Soft, Non Tender, Non Distended and Normal Bowel Sounds; No Organomegaly
Rectal: Deferred by Provider
Musculoskeletal: No Clubbing, No Cyanosis and No Edema
Skin: No Rash
Neuro: Nonfocal/grossly intact and Tremors
Laboratory Results
-
04/18/24 14:18
04/18/24 14:18
Data Reviewed
-
Lab Data: Labs Reviewed by me
Old Records: Reviewed
Impression/Plan
-
IMPRESSION:
PLAN:
# Alcohol withdrawal
-Alcohol level negative
-Alcohol withdrawal protocol
-Phenobarbital protocol
-Thiamine and folate
-IV fluids
-Protonix for potential gastritis
-Patient interested in getting help so [facility] was notified
History of alcoholic hepatitis
-Check liver enzymes in the morning
Recent right hip surgery a month ago
Essential hypertension
-Continue nifedipine
Obesity
Full code
DVT prophylaxis�heparin
Regular diet
--- NOTE | 2024-04-18 23:15 | PTCARENOTE ---
Received pt from ED via stretcher. Pt ambulated to bed x1 with a RW. AAOx3, drowsy. teletypesetter monitor placed. Pt complained of a headache and right hip pain, HIGH LIGHTER made aware, new order provided, see MAR. Assessed and oriented to room. Pt verbalized
understanding of call sequeira. Call sequeira within close reach. Will continue to monitor.
[2024-04-18] MEDS: PHENOBARBITAL 104 MG IV (23:34)
[2024-04-18 23:46] LABS: Urine Albumin Negative (Neg - Trace); Urine Bilirubin Negative (Negative); Urine Character Clear (Clear); Urine Color Yellow; Urine Glucose Negative (Negative); Urine Ketone Negative (Negative); Urine Leukocyte Trace (Negative); Urine Nitrite Negative (Negative); Urine Occult Blood 1+ (Negative); Urine Urobilinogen Negative (Neg - 1+)
[2024-04-18] MEDS: ATIVAN 1 MG PO (23:58)
[2024-04-18] MEDS: TYLENOL 650 MG PO (23:58)
[2024-04-19 00:22] LABS: Amphetamines Negative (Negative); Barbiturates Negative (Negative); Benzodiazepines Positive (Negative); Buprenorphine Negative (Negative); Cocaine Negative (Negative); Marijuana Negative (Negative); Methadone Negative (Negative); Methamphetamines Negative (Negative); Opiates Negative (Negative); Phencyclidine Negative (Negative); Tricyclic Antidepressants Negative (Negative)
[2024-04-19 00:45] LABS: Fentanyl, Urine Negative (Negative)
[2024-04-19 01:53] LABS: Urine Amorphous Seen; Urine Bacteria Many (Negative)
[2024-04-19 01:54] LABS: Urine Granular Cast 0-2 /LPF (0)
[2024-04-19 02:40] VITALS: BP 144/102
[2024-04-19] MEDS: NSS (PRESERVATIVE FREE) 0.25 ML IV (04:54)
[2024-04-19] MEDS: ATIVAN 1 MG IV (04:54)
--- NOTE | 2024-04-19 05:29 | PTCARENOTE ---
Pt complained of 8/10 pain throughout right hip and an unrelieved headache. HAIR BLENDER made aware, new orders provided, see MAR.
[2024-04-19] MEDS: COMPAZINE 5 MG IV ×2 (05:30→20:54)
[2024-04-19] MEDS: TYLENOL 650 MG PO (05:33)
[2024-04-19 06:40] LABS: % Basophils 0.2 % (0-2); % Eosinophils 2.5 % (0-6); % Immature Granulocytes 0.4 % (0-0.5); % Lymphocytes 26.8 % (20.5-51.1); % Monocytes 5.8 % (1.7-9.3); % Neutrophils 64.3 % (42.2-75.2); Absolute Eosinophils 0.1 10^3/uL (0-0.7); Absolute Lymphocytes 1.5 10^3/uL (1.2-3.4); Absolute Monocytes 0.3 10^3/uL (0.1-0.6); Absolute Neutrophils 3.7 10^3/uL (1.4-6.5); Hematocrit 33.4 % (37.0-47.0); Hemoglobin 11.4 g/dL (12.0-16.0); Mean Corp Hgb Conc. 34.1 g/dL (33.0-37.0); Mean Corpuscular Hgb 32.1 pg (27.0-31.0); Mean Corpuscular Volume 94.1 fL (81.0-99.0); Mean Platelet Volume 9.5 fL (7.4-10.4); Nucleated Red Blood Cells % 0 %; Platelet Count 246 10^3/uL (130-400); Red Blood Cell Count 3.55 10^6/uL (4.20-5.40); White Blood Cell Count 5.7 10^3/uL (4.8-10.8)
[2024-04-19 07:00] VITALS: BP 160/109
[2024-04-19 07:07] LABS: ALT (SGPT) 14 U/L (0-35); AST (SGOT) 33 U/L (14-36); Albumin 3.8 g/dl (3.5-5.0); Alkaline Phosphatase 116 U/L (38-126); Blood Urea Nitrogen 9 mg/dl (7-17); Calcium 9.7 mg/dl (8.4-10.2); Carbon Dioxide 25 mmol/L (22-30); Chloride 102 mmol/L (98-107); Estimated Creatinine Clearance 112 ml/min; Glucose 109 mg/dl (70-99); Potassium 3.5 mmol/L (3.5-5.1); Sodium 136 mmol/L (135-145); Total Bilirubin 1.2 mg/dl (0.2-1.3); Total Protein 6.3 g/dl (6.3-8.2); eGFR > 60.00
[2024-04-19] MEDS: PHENOBARBITAL 97.5 MG IV (09:13)
[2024-04-19] MEDS: PROTONIX IV 40 MG IV (09:13)
[2024-04-19] MEDS: NSS (PRESERVATIVE FREE) 10 ML IV (09:13)
[2024-04-19] MEDS: HEPARIN 5000 UNITS SC ×2 (09:20→20:16)
[2024-04-19] MEDS: DESENEX/MITRAZOL/ZEASORB 1 APPLIC TOPICAL ×2 (09:21→20:18)
[2024-04-19] MEDS: FOLVITE 1 MG PO (09:21)
[2024-04-19] MEDS: PROCARDIA XL (EXTENDED RELEASE) 60 MG PO (09:21)
[2024-04-19] MEDS: THIAMINE INJECTION 200 MG IV ×2 (09:21→20:17)
[2024-04-19] MEDS: NSS IV (09:22)
--- NOTE | 2024-04-19 10:58 | W.PN.HOSP.TC ---
Addendum entered and electronically signed by Kieran Albert MD 04/19/24 13:04:
Per RN patient complaining of excessive sedation/sleepiness and feeling abnormal. Would like to hold off on phenobarbital. Will discontinue phenobarbital and start patient on standing Ativan hold for sedation. Continue as needed Ativan too.
Original Note:
Today's Communication/Plan
-
CM
etoh withdrawal protocol
dc ivf
Assessment / Plan
Assessment / Plan
General: Well Developed, Well Nourished and No Apparent Distress
HEENT: NormoCephalic, Moist mucous membranes and Atraumatic
Respiratory: Clear
Cardiac: S1/S2 and Regular Rhythm; No Murmur or Rub
GI: Soft, Non Tender, Non Distended and Normal Bowel Sounds; No Organomegaly
Rectal: Deferred by Provider
Musculoskeletal: No Clubbing, No Cyanosis and No Edema
Skin: No Rash
Neuro: Nonfocal/grossly intact and Tremors
# Acute alcohol withdrawal
# Alcohol abuse daily basis
-Alcohol level negative
-Alcohol withdrawal protocol
-Phenobarbital protocol
-Thiamine and folate
-IV fluids DC and monitor oral intake
-Protonix for potential gastritis
-Patient interested in getting help so [facility] was notified on admission
#History of alcoholic hepatitis
-LFT stable for now
Recent right hip surgery a month ago
Essential hypertension mild elevation could be due to withdrawal
-Continue nifedipine
Mild hyponatremia secondary to dehydration in the setting of alcohol usage
-Sodium stabilized
Obesity Morbid due to excess calories
Full code
DVT prophylaxis�heparin
Regular diet
Anticipated Discharge: 24 - 48 hours
Subjective/Interval History
-
Date of Service: April 19, 2024
Elevated blood pressure
denies tremors
Objective Data
-
Labs:
Laboratory Results
04/19/24
06:10
WBC 5.7
Hgb 11.4 L
Hct 33.4 L
Plt Count 246 D
Sodium 136
Potassium 3.5
Chloride 102
Carbon Dioxide 25
BUN 9
Creatinine 0.5 L
Glucose 109 H
Calcium 9.7
Total Bilirubin 1.2
AST 33
ALT 14
Alkaline Phosphatase 116
Vital Signs:
Vital Signs
Temp Pulse Resp BP Pulse Ox
98.4 F 98 18 160/109 95
04/19/24 07:00 04/19/24 07:00 04/19/24 07:00 04/19/24 07:00 04/19/24 07:00
I&O
04/18/24 04/19/24 04/20/24
06:59 06:59 06:59
Intake Total 1164 / 1164
Balance 1164 / 1164
--- NOTE | 2024-04-19 13:11 | PTCARENOTE ---
Pt doing well today, tolerating PO diet/fluids, MSAS scores <4, VSS, ambulating to bathroom with assist x 1, ringing appropriately. Voiced some uncertainty about phenobarbital tx - feels 'drugged' as though 'she's walking underwater', questioning
the necessity. Relayed to MD, withdrawal tx changed to ativan. Pt also c/o headache, naproxen ordered. POC change relayed to patient and verbalized understanding.
[2024-04-19] MEDS: NAPROSYN 500 MG PO (13:27)
[2024-04-19 14:51] VITALS: BMI 37.1
[2024-04-19 15:00] VITALS: BP 146/110
[2024-04-19] MEDS: ATIVAN 1 MG PO ×3 (15:26→22:09)
[2024-04-19 19:45] VITALS: BP 155/100
[2024-04-19 23:23] VITALS: BP 155/96
[2024-04-20] VITALS (7 sets, daily range): BP systolic 134–158; BP diastolic 92–121; PULSE 103; O2SAT 98
[2024-04-20] MEDS: TYLENOL 650 MG PO ×2 (02:37→11:18)
[2024-04-20] MEDS: ATIVAN 1 MG PO ×5 (02:38→22:30)
--- NOTE | 2024-04-20 06:14 | PTCARENOTE ---
Bed alarm going off, this RN entered room where patient was observed standing with rw at the wall hitting the bed alarm box, yelling 'just shut it off!' This RN got patient safely back into bed and shut the bed alarm off. Pt. yelling about wanting
to go home stating 'the doctor can give me a bottle of ativan to take at home, I don't want to be here anymore.' Attempted to educate patient that her current symptoms were part of the withdrawal process and encouraged her to take PRN ativan to
help. Pt. refused, stating 'I don't want to take anymore meds, I want to go home. I'm leaving today.' Pt. asked to be left alone. Pt. safely sitting in bed. Instructed patient to use the call sequeira. Plan of care ongoing.
[2024-04-20 06:54] LABS: ALT (SGPT) 21 U/L (0-35); AST (SGOT) 49 U/L (14-36); Albumin 4.4 g/dl (3.5-5.0); Alkaline Phosphatase 126 U/L (38-126); Blood Urea Nitrogen 13 mg/dl (7-17); Calcium 10.3 mg/dl (8.4-10.2); Carbon Dioxide 23 mmol/L (22-30); Chloride 102 mmol/L (98-107); Estimated Creatinine Clearance 112 ml/min; Glucose 103 mg/dl (70-99); Magnesium 1.7 mg/dl (1.6-2.3); Potassium 3.8 mmol/L (3.5-5.1); Sodium 137 mmol/L (135-145); Total Bilirubin 0.8 mg/dl (0.2-1.3); Total Protein 7.2 g/dl (6.3-8.2); eGFR > 60.00
[2024-04-20] MEDS: PROTONIX 40 MG PO (08:25)
[2024-04-20] MEDS: PROCARDIA XL (EXTENDED RELEASE) 60 MG PO (08:25)
[2024-04-20] MEDS: DESENEX/MITRAZOL/ZEASORB 1 APPLIC TOPICAL ×2 (08:25→20:12)
[2024-04-20] MEDS: FOLVITE 1 MG PO (08:25)
[2024-04-20] MEDS: THIAMINE INJECTION 200 MG IV ×2 (08:26→20:12)
[2024-04-20] MEDS: HEPARIN SC (08:26)
--- NOTE | 2024-04-20 11:17 | W.PN.HOSP.TC ---
Today's Communication/Plan
-
dc standing ativan
monitor BP
PT eval
Assessment / Plan
Assessment / Plan
General: Well Developed, Well Nourished and No Apparent Distress, morbidly obese
HEENT: NormoCephalic, Moist mucous membranes and Atraumatic
Respiratory: Clear
Cardiac: S1/S2 and Regular Rhythm; No Murmur or Rub
GI: Soft, Non Tender, Non Distended and Normal Bowel Sounds; No Organomegaly
Rectal: Deferred by Provider
Musculoskeletal: No Clubbing, No Cyanosis and No Edema
Skin: No Rash
Neuro: Nonfocal/grossly intact and Tremors
# Acute alcohol withdrawal
# Alcohol abuse daily basis
-Alcohol level negative
-Alcohol withdrawal protocol
-Phenobarbital protocol DCed
-Ativan standing stopped. Cont with PRN per the protocol
-Thiamine and folate
-IV fluids DC and monitor oral intake
-Protonix for potential gastritis
#History of alcoholic hepatitis
-LFT stable for now
Recent right hip surgery a month ago
Essential hypertension mild elevation could be due to withdrawal
-Continue nifedipine. If elevated persistently increase nifedipine dose to 90mg
-Was on aldactone in the past.
Mild hyponatremia secondary to dehydration in the setting of alcohol usage
-Sodium stabilized
Obesity Morbid due to excess calories
Full code
DVT prophylaxis�heparin
Regular diet
Anticipated Discharge: Within 24 hours
Subjective/Interval History
-
Date of Service: April 20, 2024
states of feeling foggy with ativan at times
not much appetite
Objective Data
-
Labs:
Laboratory Results
04/20/24
05:56
Sodium 137
Potassium 3.8
Chloride 102
Carbon Dioxide 23
BUN 13
Creatinine 0.6
Glucose 103 H
Calcium 10.3 H
Total Bilirubin 0.8
AST 49 H
ALT 21
Alkaline Phosphatase 126
Vital Signs:
Vital Signs
Temp Pulse Resp BP Pulse Ox
98.5 F 107 16 153/104 98
04/20/24 10:40 04/20/24 10:40 04/20/24 10:40 04/20/24 10:40 04/20/24 10:40
I&O
04/19/24 04/20/24 04/21/24
06:59 06:59 06:59
Intake Total 1164 / 1164 780 / 780
Balance 1164 / 1164 780 / 780
[2024-04-20] MEDS: TRANDATE 10 MG IV (11:19)
[2024-04-20] MEDS: ALDACTONE 25 MG PO (13:44)
[2024-04-20] MEDS: HEPARIN 5000 UNITS SC (20:12)
[2024-04-20] MEDS: FLUSH (NSS) 1 FLUSH IV (20:14)
[2024-04-21 03:30] VITALS: BP 160/117
--- NOTE | 2024-04-21 03:54 | PTCARENOTE ---
Patient upset and calling for this RN to come in, stating 'I don't know what is going on here, but I will not be taking any more of those medications. My blood pressure is high, and I need to get that to come down. I am not receiving my medication
that my primary doctor ordered for me, and I need them right now.' Reviewed medication list over the MAR with patient regarding medications and dosages that are currently ordered, patient is not happy that it is 0400am and the medications are not
due until 0800am (specifically Procardia and Aldactone). Patient also stating at this time 'I will not be taking any more of those 'benzopines' that everyone keeps encouraging me to take, I do not like the feelings I am getting from withdrawing from
the Ambien.' Through clarification with patient - patient is speaking about the Ativan, and is stating that she feels she is getting withdrawal symptoms from the Ativan that is being administered from MSAS scoring. She states she does not trust any
medication that we are giving to her, and states she will have her PCP 'fix this.' For these reasons, patient has been refusing to receive PRN Labetalol for blood pressure control, and she prefers to wait until physician arrives in the morning.
Offered to ask nurse practitioner come to see patient and review medications, patient declined. Patient states 'Young lady, I do not wish to have this dialogue with you any further.'
--- NOTE | 2024-04-21 04:00 | PTCARENOTE ---
MSAS score 5, currently more agitated and restless. Patient refusing to take Ativan and states she will not be taking any more medication that we have to offer as she feels we are making her withdrawal symptoms worse. No Ativan given at this time.
--- NOTE | 2024-04-21 05:10 | PTCARENOTE ---
Patient has become increasingly more agitated and paranoid early this morning. In addition to patient refusing to take any further medication as she feels we are poisoning her, she is expressing desire to leave AMA. Patient was found ambulating down
patiño to nurses station with hospital walker, stating she is leaving. Refusing to go back to her room at this time, and stating 'I would be more than happy to sit with you in the lobby to sign papers.' Nursing records supervisor notified, MARIA DOLORES Fitch
notified. Patient agreeable to sign AMA paperwork. IV removed from Left AC. Patient unsteady and wobbly following recent hip surgery -- patient states her plan is to utilize 'the nice [employer] drivers to assist her back to her house' when she arrives
home. Patient called for [employer] ride home in presence of this RN and Nursing records supervisor and was escorted to ER entrance to [employer] auto carrier driver.
--- NOTE | 2024-04-21 05:24 | W.PN.UPDATE ---
Update Note
Progress Note Update
Notified by nursing about patient calling an [employer], signing AMA form and walking downstairs with Kel Nursing Wringer Machine Operator. She had been refusing medications all evening stating we were poisoning her. Multiple attempts by staff to persuade her to stay
to no avail.
--- NOTE | 2024-04-21 07:48 | W.DCSUMMARY ---
Discharge Summary
Discharge Data
Date of Admission: 04/19/24
Date of Discharge: 04/21/24
-
Pending Results: No
Hospital Course
59-year-old female past medical history of hypertension, recent right hip surgery, obesity due to excess calories, alcohol abuse daily basis who is presenting with acute alcohol withdrawal symptoms. Patient was drinking heavy at home and then
decided to start cutting down alcohol. Patient presents withdrawal symptoms nausea vomiting and palpitations. Blood pressure was found to be elevated. Unclear about compliance with medication as outpatient. Also history of alcoholic hepatitis.
Patient with heavy alcohol usage and was started on phenobarbital. Also started on alcohol withdrawal protocol. Patient stated of severe sedation with phenobarbital and thus was discontinued. Patient was started on standing Ativan. Patient
stated she has been taking Aldactone at home which helps with the blood pressure control. Aldactone was restarted. Patient complaining of sedation and standing abdomen was discontinued only as needed per the protocol was continued. Patient
decided to leave AGAINST MEDICAL ADVICE on 04/21/2024 past 5am.
Discharge Plan
-
Patient Disposition: Against Medical Advice
Referrals:
Kahlil Luu MD [Family Provider] -
Prescriptions:
No Action
nifedipine 60 mg Tablet Extended Release 24hr
60 mg PO DAILY Qty: 30 0RF
meloxicam 7.5 mg tablet
15 mg PO DAILY
docusate sodium 100 mg capsule
100 mg PO BID
gabapentin 100 mg capsule
200 mg PO BID
spironolactone
25 mg
Discharge Date and Time
Discharge Date/Time: 04/21/24 05:25
Print Language: DANISH
== END 2024-04-21 05:25 | disposition left against medical advice (07) | DRG 894 ==
LOC: 3 WEST ACU 08:52
PROVIDERS: Physician Assistant; ADMITTING PHYSICIAN Hospitalist; ATTENDING PHYSICIAN Hospitalist; EMERGENCY PHYSICIAN Emergency Medicine; FAMILY PHYSICIAN Family Medicine
PROC: HZ2ZZZZ Detoxification Services for Substance Abuse Treatment (ICD-10-PCS; 2024-04-19)
DX: F10.139 Alcohol abuse with withdrawal, unspecified (principal); E87.1 Hypo-osmolality and hyponatremia; K70.10 Alcoholic hepatitis without ascites; I10 Essential (primary) hypertension; E66.09 Other obesity due to excess calories; E86.0 Dehydration; Z53.29 Procedure and treatment not carried out because of patient's decision for other reasons; Z98.890 Other specified postprocedural states; Z79.899 Other long term (current) drug therapy
CPT/HCPCS: 80048; 80053; 80306; 80307; 81003; 81015; 82077; 83735; 85025; 87086; 93005; 96361; 96374; 96376; 97162; 99285

== ENCOUNTER 2024-05-26 15:54 | Inpatient (IN) | payer OTHER, SELFPAY ==
[2024-05-26] VITALS (9 sets, daily range): BP systolic 114–158; BP diastolic 79–104; BMI 39.0; BMI 39.4
--- NOTE | 2024-05-26 10:51 | ED.GENMED ---
History of Present Illness
General
Chief Complaint: Alcohol Problem
Source: patient
Exam Limitations: none
Time Seen by Provider: 05/26/24 10:38
Nursing documentation reviewed up to this point in time: agreed with
History of Present Illness
History of Present Illness:
59-year-old female presents emergency room complaining of alcohol withdrawal. She has been drinking alcohol, vodka every day for the past several weeks. She is a history of alcohol abuse and alcohol withdrawal. She states her last drink was 3
days ago.
Past History
Past History
ED Past Medical History: HTN, Psychiatric and Other (Alcoholism)
ED Past Surgical History: None and Other (parathyroidectomy)
Social History
Tobacco: Smoker
Alcohol: Binge drinker
Drug: None
Personal:
Living: with family
Employment: Employed
Family History
Family History: Other (Father with TIA and hypertension)
Review of Systems
Review of Systems
Allergies reviewed?: Yes
All Other Systems: Not applicable
Constitutional: Reports no symptoms
EENT: Reports no symptoms
Respiratory: Reports no symptoms
Cardiac: Reports no symptoms
ABD/GI: Reports nausea and vomiting
: Reports no symptoms
Musculoskeletal: Reports no symptoms
Skin: Reports no symptoms
Neurological: Reports no symptoms
Endocrine: Reports no symptoms
Hematologic/Lymphatic: Reports no symptoms
Psychiatric: Reports anxiety
Phy Exam
Physical Exam
Physical Exam:
Physical Exam
General: Anxious appearing
Neck: supple. no meningeal signs. normal posterior pharynx
Heart: s1/s2 tachycardia, no murmur. equal radial
pulses.
HEENT: Pupils equal round reactive to light, EOMI
Lungs: no acute respiratory distress. clear bilaterally
Abdomen: normal bowel sounds. not tender. no CVAT
Neuro: alert and oriented. no focal neurological deficits cranial nerves II through XII intact, tremor
Skin: no rash
Psychiatric: well kept. interactive and cooperative
Extremities: no edema. no calf tenderness. negative homans. good distal pulses
Scores
Withdrawal Assessment of Alcohol
Withdrawal Assessment Completed?: Yes
Nausea and Vomiting: Intermittent nausea with dry heaves
Tactile Disturbances: Very mild itching, pins and needles, burning or numbness
Tremor: Moderate, with patient's arms extended
Auditory Disturbances: Not present
Paroxysmal Sweats: No sweat visible
Visual Disturbances: Not present
Anxiety: Moderately anxious, or guarded, so anxiety is inferred
Headache, Fullness in Head: Not present
Agitation: Moderately fidgety and restless
Orientation and clouding of sensorium: Oriented and can do serial additions
Total CIWA Score: 17
Alcohol Withdrawal Medication Recommendation: Equal to MSAS Score 8-11. Lorazepam 1-2mg IV NOW & re-assess q1hr
Course
Orders/Labs/Results
Orders:
Orders
05/26/24 10:49
Lorazepam [Ativan] 2 mg IV NOW STA
05/26/24 11:00
0.9% Sodium Chloride 1000 ml [Nss] 1,000 ml IV 999 mls/hr
05/26/24 11:57
0.9% Sodium Chloride 1000 ml [Nss] 1,000 ml IV BOLUS
05/26/24 12:08
Alcohol Urgent
Complete Blood Count/With Diff Urgent
Comprehensive Metabolic Panel Urgent
Magnesium Urgent
Phosphorus Urgent
Prothrombin Time Urgent
05/26/24 13:26
Add On- LAB Urgent
Tests Added?: magnesium
Potassium Chloride 10% Elixir [KCl Elixir] 40 meq TUBE NOW STA
05/26/24 13:27
Potassium Chloride [KCl] 40 meq 0.9% Sodium Chloride 250 ml [Nss] 250 ml IV NOW
Abnormal Lab Results
05/26/24
12:08
WBC 12.8 H 10^3/uL
(4.8-10.8)
MCH 32.3 H pg
(27.0-31.0)
Abs Immat Gran (auto) 0.1 H 10^3/uL
(0-0.05)
Absolute Neuts (auto) 10.2 H 10^3/uL
(1.4-6.5)
Absolute Monos (auto) 0.9 H 10^3/uL
(0.1-0.6)
Neutrophils % 79.8 H %
(42.2-75.2)
Lymphocytes % 12.7 L %
(20.5-51.1)
Sodium 133 L mmol/L
(135-145)
Potassium 3.1 L mmol/L
(3.5-5.1)
Carbon Dioxide 19 L mmol/L
(22-30)
Glucose 127 H mg/dl
(70-99)
Magnesium 1.3 L mg/dl
(1.6-2.3)
Total Bilirubin 1.4 H mg/dl
(0.2-1.3)
AST 51 H U/L
(14-36)
05/26/24 12:08
05/26/24 12:08
Vital Signs
Initial and Last Documented VS:
Initial Vital Signs
Temp Pulse Resp BP Pulse Ox
98.2 F 115 20 143/100 98
05/26/24 10:33 05/26/24 10:33 05/26/24 10:33 05/26/24 10:33 05/26/24 10:33
Last Documented Vital Signs
Temp Pulse Resp BP Pulse Ox
98.2 F 113 20 150/98 97
05/26/24 10:33 05/26/24 12:45 05/26/24 12:30 05/26/24 12:00 05/26/24 12:45
MDM/Problems Addressed
Differential Diagnosis Includes:
Alcohol withdrawal, hypokalemia, hypomagnesemia.
MDM/Problems Addressed:
59-year-old female with alcohol withdrawal, requiring multiple doses of Ativan. Admit to hospitalist. Potassium repletion ordered.
*Pulse Oximetry
Patient hypoxic: no
*Medical Services Assistant Interpretation
Rate: tachycardiac
Interpretation: abnormal
Heart Rate: 113
Rhythm: sinus tachycardia
*Critical Care Note
Total Time (30-74mins, 75-104mins- exclusive of procedures): Not Applicable
Patient Management
Social determinants of health affecting care: Living situation
Discussion with other providers: Hospitalist
Escalation/DeEscalation of care consider admission/obs:
Admit indicated
ED Attending Note
-
Portions of this chart may have been created with voice recognition software.� Occasional wrong word or��sound alike� substitutions may have occurred due to the inherent limitations of voice recognition software.
Discharge Plan
Departure
Patient Disposition: Admit
Date of Disposition: 05/26/24
Time of Disposition: 13:23
Admit to: IMU
Presentation/result/management discussed w/ accepting MD/DO: Hospitalist
Patient with high blood pressure during this ER visit?: Yes
Condition: Fair
Discharge Problem:
Alcohol withdrawal, Hypokalemia
Prescriptions:
No Action
nifedipine 60 mg Tablet Extended Release 24hr
60 mg PO DAILY Qty: 30 0RF
meloxicam 7.5 mg tablet
15 mg PO DAILY
docusate sodium 100 mg capsule
100 mg PO BID
gabapentin 100 mg capsule
200 mg PO BID
spironolactone
25 mg
Referrals:
UNKNOWN - PT DOES,NOT KNOW [Family Provider] -
Interventions
Interventions:
*Risk Screen - Suicide Last Done: 05/26/24 12:00
*General Assessment Last Done: 05/26/24 12:00
*Neglect/Abuse Screening Last Done: 05/26/24 11:13
*ED COVID-19 Vaccine History Last Done: 05/26/24 11:13
ED- Neurological Assessment Last Done: 05/26/24 11:13
ED-Psychological Assessment Last Done: 05/26/24 11:40
Discharge Date and Time
Print Language: SOU[place] AFRICAN
[2024-05-26] MEDS: ATIVAN 2 MG IV (11:25)
[2024-05-26] MEDS: NSS 1000 IV ×2 (12:05→19:55)
[2024-05-26 12:23] LABS: % Basophils 0.2 % (0-2); % Immature Granulocytes 0.5 % (0-0.5); % Lymphocytes 12.7 % (20.5-51.1); % Monocytes 6.8 % (1.7-9.3); % Neutrophils 79.8 % (42.2-75.2); Absolute Immature Granulocytes 0.1 10^3/uL (0-0.05); Absolute Lymphocytes 1.6 10^3/uL (1.2-3.4); Absolute Monocytes 0.9 10^3/uL (0.1-0.6); Absolute Neutrophils 10.2 10^3/uL (1.4-6.5); Hematocrit 38.8 % (37.0-47.0); Hemoglobin 14.1 g/dL (12.0-16.0); Mean Corp Hgb Conc. 36.3 g/dL (33.0-37.0); Mean Corpuscular Hgb 32.3 pg (27.0-31.0); Mean Platelet Volume 9.3 fL (7.4-10.4); Nucleated Red Blood Cells % 0.2 %; Platelet Count 350 10^3/uL (130-400); Red Blood Cell Count 4.36 10^6/uL (4.20-5.40); White Blood Cell Count 12.8 10^3/uL (4.8-10.8)
[2024-05-26 12:36] LABS: INR 1.16; PT 14.6 Sec (11.4-14.6)
[2024-05-26 12:39] LABS: AST (SGOT) 51 U/L (14-36); Albumin 4.5 g/dl (3.5-5.0); Alkaline Phosphatase 110 U/L (38-126); Blood Urea Nitrogen 17 mg/dl (7-17); Calcium 9.4 mg/dl (8.4-10.2); Carbon Dioxide 19 mmol/L (22-30); Chloride 98 mmol/L (98-107); Estimated Creatinine Clearance 99 ml/min; Glucose 127 mg/dl (70-99); Magnesium 1.3 mg/dl (1.6-2.3); Phosphorus 2.9 mg/dl (2.5-4.5); Potassium 3.1 mmol/L (3.5-5.1); Sodium 133 mmol/L (135-145); Total Bilirubin 1.4 mg/dl (0.2-1.3); Total Protein 7.2 g/dl (6.3-8.2); eGFR > 60.00
[2024-05-26 12:42] LABS: Alcohol None Detected
[2024-05-26 13:28] LABS: ALT (SGPT) < 10 U/L (0-35)
[2024-05-26] MEDS: ATIVAN 1 MG IV (14:04)
[2024-05-26] MEDS: KCL ELIXIR 40 MEQ TUBE (14:11)
[2024-05-26] MEDS: KCL 270 MEQ IV (14:16)
--- NOTE | 2024-05-26 16:01 | W.PN.UPDATE ---
Update Note
Progress Note Update
Seen and examined by me independently in collaboration with the medical student Christine.
Past medical history/social history/medication/allergies reviewed.
Lab data and imaging data reviewed.
Patient with history of alcoholism and prior alcohol withdrawal presents with feeling anxious , tremulous and nausea.
Patient states that she has longstanding history of alcoholism. She has tried outpatient rehabs. She has a sponsor for rehab programs. She was here a month ago for alcohol withdrawal issues.
She drinks in binges. She goes on a binge of 2 days of alcohol and then no alcohol for 2 days. When she drinks she drinks a small bottle of wine but then she has hold 10 bottles of mediation vodkas. She felt like as she was doing harm to herself
so she stopped drinking 3 days ago. She then started to feel tremulous and anxious. Show also thought this morning she was seeing things which were not there. She felt confused. So she called over and came to the hospital.
She currently feels as though she is jumping out of her skin. She is feeling anxious. Nausea present but no vomiting. Denies any abdominal pain.
No shortness of breath.
Tachycardia noted. Blood pressure slightly on the higher side. Not hypoxic.
Chest is clear.
Heart sinus versus irregular.
Abdomen is soft.
Mild tremors noted. Immediate recall 3/3
Alert and oriented x 3.
Acute alcohol withdrawal with possible alcohol hallucinosis. No evidence of DTs.
Admit to hospital for alcohol withdrawal treatment. Admit to IMU. Follow alcohol withdrawal protocol including benzodiazepines and phenobarbital.
Patient is open to discuss with psychiatrist about her anxieties and alcohol problems.
Mild AG met acidosis noted -normal Cr. Possible alcohol /keto acidosis. Start on IV fluids and monitor
Hypomagnesemia-replete
Leukocytosis-check a urinalysis and follow closely. Afebrile. Abdomen benign.
Abnormal LFTs-mild elevation in total bili and AST noted. No overt signs of hepatic decompensation. Continue to follow.
[2024-05-26] MEDS: MULTIVITAMIN 1019.08 GRAMS IV (16:25)
[2024-05-26] MEDS: MULTIVITAMIN 1019.08 MG IV ×2 (16:25)
[2024-05-26] MEDS: MULTIVITAMIN 1019.08 ML IV (16:25)
--- NOTE | 2024-05-26 16:29 | HPS.HSE ---
Family Physician
-
Family Physician: NOT KNOW UNKNOWN - PT DOES
Chief Complaint
-
Alcohol withdrawal
History of Present Illness
59-year-old female with past medical history of alcohol abuse presents to the ED with alcohol withdrawal symptoms. 3 days ago the patient went on a 2-day alcohol binge of 1 airplane size small bilateral vodka and 1 large bottle of wine. Patient
states that she frequently binges on airplane bottles of vodka and wine. She has been having dizziness tremors, nausea, vomiting, diarrhea, sweating, burning/pins and needle sensation in her feet and hands, and increased anxiety. She wants to stop
drinking and tried to again to stop 3 days ago. Her symptoms got increasingly worse which made her come to the emergency department. This patient was admitted April 21 and left AMA for the same reasons. She states that she rents out a home to
tenants which is very stressful for her. Of note the patient had hip replacement surgery March 27 and has been recovering. She denies any chest pain, palpitations or shortness of breath.
Medical History
Past Medical History
Past Medical History: Reports HTN, Psychiatric and Other (Alcohol abuse)
Past Surgical History: Reports Other (Parathyroidectomy, breast implants, hip replacement March 27)
Social History
Tobacco: Non-smoker
Alcohol: Binge drinker
Drug: None
Family History
Family History: Hypertension (Both mom and dad) and Other (Unknown cardiac issue)
Allergies / Home Medications
Allergies reflects when Allergies were last updated in [employer].
Home Medications with original date entered in [employer]
Allergy/Medication List:
Allergies
Allergy/AdvReac Type Severity Reaction Status Date / Time
No Known Allergies Allergy Verified 05/26/24 10:32
Home Medications
nifedipine 60 mg tablet,extended release 24 hr 60 mg PO DAILY Blood Pressure #30 tabs 12/02/23
acetaminophen 500 mg tablet (Tylenol Extra Strength) 1,000 mg PO Q6HPRN PRN mild pain 05/26/24
Review of Systems
-
History Source: Patient
EENT: Reports No Symptoms
Respiratory: Reports No Symptoms
Cardiac: Reports No Symptoms
Abdomen/GI: Reports Nausea, Vomiting and Diarrhea; Denies Abdominal Pain or Bloody Stools
: Reports No Symptoms
Neurological: Reports Dizzy and Headache
Psych: Reports Anxiety; Denies Suicidal or Audio or Visual Hallucinations
Physical Exam
Vital Signs
Vital Signs
Temp Pulse Resp BP Pulse Ox
98.2 F 111 26 142/93 98
05/26/24 10:33 05/26/24 14:30 05/26/24 14:30 05/26/24 14:07 05/26/24 14:30
Physical Exam
General: Appears in Distress
Respiratory: Clear
Cardiac: S1/S2 and Tachycardia
GI: Soft, Non Tender and Non Distended
Genito-urinary: Deferred by me
Musculoskeletal: No Cyanosis and No Edema
Skin: Warm and Dry
Neuro: AO x 3
Psych: Anxious
Laboratory Results
-
05/26/24 12:08
05/26/24 12:08
Laboratory Results
PT 14.6 Sec (11.4-14.6) 05/26/24 12:08
INR 1.16 05/26/24 12:08
Total Bilirubin 1.4 mg/dl (0.2-1.3) H 05/26/24 12:08
AST 51 U/L (14-36) H 05/26/24 12:08
ALT < 10 U/L (0-35) 05/26/24 12:08
Alkaline Phosphatase 110 U/L (38-126) 05/26/24 12:08
Impression/Plan
-
IMPRESSION:
Anxious 59-year-old female in alcohol withdrawal
PLAN:
#Alcohol withdrawal
-History of binge drinking and prior hospitalization--dizziness, nausea, vomiting, tremors, sweating, [id number] sensation in hands and feet and significant anxiety after not drinking for 3 days--currently no seizures or altered mental status
--anion gap 16 on admission --metabolic acidosis likely secondary to alcohol use --admit to IMU --Banana bag--IV fluids--benzodiazepine and phenobarbital taper per alcohol withdrawal protocol--monitor for delirium tremens
#Anion gap metabolic acidosis
-Likely secondary to alcohol--16--continue IV fluids and monitor
#Hypomagnesemia
-replete
#Leukocytosis
-Check UA--patient afebrile--monitor
#Mild LFT elevation
-Total bili and AST mildly elevated--Monitor
#HTN
-Continue home meds
[2024-05-26] MEDS: LOVENOX 40 MG SC (17:49)
[2024-05-26] MEDS: ATIVAN 1 MG PO (17:49)
[2024-05-26] MEDS: PHENOBARBITAL 104 MG IV (17:49)
[2024-05-26] MEDS: TYLENOL 1000 MG PO (18:16)
[2024-05-26 18:33] LABS: GGTP 111 U/L (12-43)
[2024-05-26 18:40] LABS: B-Hydroxybutyrate 0.21 mmol/L (0.02-0.27)
--- NOTE | 2024-05-26 18:44 | PTCARENOTE ---
Pt rec'd into IMU 3351 as ED admit 17:30, AOx3 pleasant and cooperative, MSAS assessment Q2 hours-score currently 5, medicated with PRN Ativan and dose of scheduled Phenobarb also given. Oriented to room and plan of care, safe environment
maintained, resting quietly s/p medications.
[2024-05-26] MEDS: THIAMINE INJECTION 200 MG IV (19:55)
--- NOTE | 2024-05-26 22:20 | PTCARENOTE ---
Caring for patient overnight. aaox3, patient withdrawn, quiet & sleepy. MSAS. VSS. IVF running. denies pain. BSCx1. Denies having seizures in the past from previous withdrawals. Will continue to monitor overnight. BA on. Call sequeira in reach.
[2024-05-26] MEDS: PHENOBARBITAL 97.5 MG IV (22:49)
[2024-05-27] VITALS (15 sets, daily range): BP systolic 117–149; BP diastolic 84–111; PULSE 100; O2SAT 98
[2024-05-27] MEDS: ATIVAN 1 MG PO ×4 (01:27→20:01)
[2024-05-27 01:46] LABS: Amphetamines Negative (Negative); Barbiturates Positive (Negative); Benzodiazepines Positive (Negative); Buprenorphine Negative (Negative); Cocaine Negative (Negative); Marijuana Negative (Negative); Methadone Negative (Negative); Methamphetamines Negative (Negative); Opiates Negative (Negative); Phencyclidine Negative (Negative); Tricyclic Antidepressants Negative (Negative)
[2024-05-27 01:53] LABS: Urine Albumin Negative (Neg - Trace); Urine Bilirubin Negative (Negative); Urine Character Clear (Clear); Urine Color Yellow; Urine Glucose Negative (Negative); Urine Ketone Negative (Negative); Urine Leukocyte Negative (Negative); Urine Nitrite Negative (Negative); Urine Occult Blood Negative (Negative); Urine Specific Gravity 1.015 (<1.030); Urine Urobilinogen Negative (Neg - 1+)
[2024-05-27 02:01] LABS: Fentanyl, Urine Negative (Negative)
[2024-05-27] MEDS: NSS 1000 IV ×3 (05:20→19:51)
[2024-05-27 06:08] LABS: % Basophils 0.2 % (0-2); % Eosinophils 1.2 % (0-6); % Immature Granulocytes 0.2 % (0-0.5); % Lymphocytes 41.9 % (20.5-51.1); % Monocytes 7.8 % (1.7-9.3); % Neutrophils 48.7 % (42.2-75.2); Absolute Eosinophils 0.1 10^3/uL (0-0.7); Absolute Lymphocytes 2.5 10^3/uL (1.2-3.4); Absolute Monocytes 0.5 10^3/uL (0.1-0.6); Absolute Neutrophils 2.9 10^3/uL (1.4-6.5); Hematocrit 39.2 % (37.0-47.0); Hemoglobin 13.6 g/dL (12.0-16.0); Mean Corp Hgb Conc. 34.7 g/dL (33.0-37.0); Mean Corpuscular Hgb 32.9 pg (27.0-31.0); Mean Corpuscular Volume 94.9 fL (81.0-99.0); Mean Platelet Volume 9.2 fL (7.4-10.4); Nucleated Red Blood Cells % 0 %; Platelet Count 254 10^3/uL (130-400); Red Blood Cell Count 4.13 10^6/uL (4.20-5.40); Red Cell Dist. Width 13.2 % (11.5-14.5)
[2024-05-27 06:19] LABS: ALT (SGPT) 18 U/L (0-35); AST (SGOT) 33 U/L (14-36); Albumin 3.6 g/dl (3.5-5.0); Alkaline Phosphatase 118 U/L (38-126); Blood Urea Nitrogen 6 mg/dl (7-17); Calcium 8.7 mg/dl (8.4-10.2); Carbon Dioxide 22 mmol/L (22-30); Chloride 107 mmol/L (98-107); Estimated Creatinine Clearance 116 ml/min; Glucose 116 mg/dl (70-99); Lipase 42 U/L (23-300); Magnesium 2.1 mg/dl (1.6-2.3); Potassium 3.4 mmol/L (3.5-5.1); Sodium 136 mmol/L (135-145); Total Bilirubin 1.2 mg/dl (0.2-1.3); Total Protein 6.1 g/dl (6.3-8.2); eGFR > 60.00
[2024-05-27] MEDS: PHENOBARBITAL 97.5 MG IV ×3 (09:09→22:03)
[2024-05-27] MEDS: FOLVITE 1 MG PO (09:13)
[2024-05-27] MEDS: KLOR-CON 20 MEQ PO (09:13)
[2024-05-27] MEDS: PROCARDIA XL (EXTENDED RELEASE) 60 MG PO (09:13)
[2024-05-27] MEDS: THIAMINE INJECTION 200 MG IV ×2 (09:14→19:52)
--- NOTE | 2024-05-27 09:54 | CM ---
CM reviewed medical records and met with Svetlana this am in IMU; consult for substance abuse counseling received.
Svetlana lives alone, although she rents 2 of her 3 bedrooms out. Patient uses a walker, but otherwise has no DME. She has no history of VN and SNF.
CM was consulted to discuss drug and alcohol resources. Patient stated that she currently has a therapist that she speaks with regarding her stressors. They have recently been discussing Vivitrol as a means to help Svetlana abstain from ETOH. Svetlana is
willing to consider this, stating 'I guess it's about time'.
Patient stated that this relapse was caused by financial concerns. The roof on her house has started to leak, and she is anxious to return home so she can get someone out to the house to fix the provlem..
Svetlana was agreeable to CM contacting BRENNA for support. I spoke with Lázaro who will visit Svetlana tomorrow morning at .
CM will continue to follow as needed.
Plan: Anticipate discharge to home with substance abuse counseling follow up by BRENNA in AM
PCP: Pt unsure
Pharmacy: [facility] on [facility] in [place]
--- NOTE | 2024-05-27 10:08 | W.PN.UPDATE ---
Update Note
Progress Note Update
Seen and examined by me independently in collaboration with the medical territory manager.
Lab data and imaging data reviewed.
Addendum as below :
Patient this morning feels much better. Less tremulous. Less anxious.
No nausea but appetite still is poor. No diarrhea.
Denies shortness of breath chest pain.
Afebrile and hemodynamically stable. Improving tachycardia. Not hypotensive. Not tremulous.
Alert and oriented x 3. No agitation or confusion.
Acute alcohol withdrawal with alcohol hallucinosis on admission. No evidence of DVT. Improving symptoms. Continue with phenobarb treatments and prn Lorazepam per alcohol withdrawal protocol.
Leukocytosis without treatments-suspect
Resolved met acidosis normalized magnesium. Continue to follow.
Hypokalemia-replete
Anxiety disorder with alcoholism-await psychiatry input.
Add protonix for dyspeptic symptoms.
Total time spent on today's encounter was 52 minutes which included time spent in counseling the patient regarding diagnosis and treatment plan as listed above, goals of care, and symptom management. Case was discussed with nursing staff,
specialists. All labs and imaging personally reviewed by me. Remainder the time spent in detailed review of previous records, lab data, imaging, and other medical provider documentation.
[2024-05-27] MEDS: MUCINEX 600 MG PO (10:45)
[2024-05-27] MEDS: PROTONIX 40 MG PO (10:45)
--- NOTE | 2024-05-27 10:48 | W.PN.HOSP.TC ---
Today's Communication/Plan
-
- MSAS protocol.
- Continue lorezapam and phenobarbital taper.
- IV hydration, PPI, seizure precautions.
Assessment / Plan
Assessment / Plan
Assessment
Svetlana Mendez, age 59, presented to the ED with alcohol withdrawal symptoms on 05-26-24. She has been feeling increasingly anxious over the past few years, and this got worse due to stresses from her job a few weeks ago. She went on a 2-day alcohol
binge prior to her arrival to the ED. She has been having dizziness tremors, nausea, vomiting, diarrhea, sweating, burning/pins and needle sensation in her feet and hands. Of note the patient had hip replacement surgery March 27 and has been
recovering.
Impression and plan
Alcohol withdrawal
- History of binge drinking and prior hospitalization
- Currently no seizures or altered mental status.
- Anion gap 16 on admission; metabolic acidosis likely secondary to alcohol use
- Admit to IMU.
- Lorazepam and phenobarbital taper per alcohol withdrawal protocol.
- Monitor for delirium tremens, seizures.
- IV hydration, PPI.
Generalized anxiety disorder
- She has had anxiety for years.
- Has not been treated pharmacologically but has been talking to a therapist.
- Discussed outpatient management strategies including the role of SSRIs.
- Treating the underlying anxiety is essential to preventing binging and relapses; discussed this as well.
- She is amenable to consider SSRIs.
- Will help arrange outpatient appointment with her primary.
- In-patient psychiatry consult.
Anion-gap metabolic acidosis
- Likely secondary to alcohol.
- Continue IV fluids and monitor.
Hypomagnesemia
- Replete
Leukocytosis
- UA unremarkable.
- Likely reactive.
Transaminitis
- Total bili and AST mildly elevated.
- Likely secondary to alcohol use disorder.
- Monitor.
Essential hypertension
- Continue nifedipine.
DVT prophylaxis
- Enoxaparin.
Code status
- Full.
Anticipated Discharge: > 48 hours
Subjective/Interval History
-
Date of Service: May 27, 2024
Objective Data
-
Labs:
Laboratory Results
05/27/24
05:20
WBC 6.0
Hgb 13.6
Hct 39.2
Plt Count 254 D
Sodium 136
Potassium 3.4 L
Chloride 107
Carbon Dioxide 22
BUN 6 L
Creatinine 0.6
Glucose 116 H
Calcium 8.7
Total Bilirubin 1.2
AST 33
ALT 18
Alkaline Phosphatase 118
Vital Signs:
Vital Signs
Temp Pulse Resp BP Pulse Ox
98.1 F 101 23 127/90 92
05/27/24 03:28 05/27/24 09:13 05/27/24 06:00 05/27/24 09:13 05/27/24 06:00
I&O
05/26/24 05/27/24 05/28/24
06:59 06:59 06:59
Intake Total 480 / 480
Balance 480 / 480
Review of Systems
-
History Source: Patient
Constitutional: Reports Fatigue and Sleep Disturbance
EENT: Reports No Symptoms Reported
Respiratory: Reports No Symptoms
Cardiac: Reports No Symptoms
Abdomen/GI: Reports No Symptoms
Breast: Reports No Symptoms
Genitourinary: Reports No Symptoms
Musculoskeletal: Reports No Symptoms
Skin: Reports No Symptoms
Neuro: Reports Headache and Tremors (intermittent and mild)
Endocrine: Reports No Symptoms
Hematologic / Lymphatic: Reports No Symptoms
Allergy / Immunology: Reports No Symptoms
Psych: Reports Anxious
Physical Exam
-
General: No Apparent Distress and Comfortable
HEENT: Normocephalic, Atraumatic, Moist Mucous Membranes and Anicteric
Respiratory: Clear to Auscultation and Non Labored Respirations
Cardiac: Regular Rhythm and S1/S2
GI: Soft, Nontender and Nondistended
Genito-urinary: No Costovertebral Tender
Musculoskeletal: No Clubbing, No Cyanosis and No Edema
Skin: Warm, Dry and IV Access / Catheter Site
Neuro: Awake, Alert, Oriented and Nonfocal/Grossly Intact; Negative Tremors (not noted on exam)
Psych: Anxious
--- NOTE | 2024-05-27 12:37 | PTCARENOTE ---
Patient MSAS scores this shift are 2-6. Patient stating that Phenobarbitol is not making her feel well -Dr. Patino notified. Eating well, having loose stools. Patient is stating that she feels 'tired' today. Calm and cooperative.
[2024-05-27] MEDS: TYLENOL 1000 MG PO ×2 (13:02→20:01)
--- NOTE | 2024-05-27 15:29 | W.PN.UPDATE ---
Update Note
Progress Note Update
Psychiatric consultation dictated.
Patient is not feeling well but was able to communicate. She does report anxiety and depression which she feels is related to her binge drinking. She denies hopelessness or suicidal thoughts. She reports being socially isolated and that several of
her children do not talk to her because of her drinking.
Will try Lexapro 10 mg daily, side effects discussed. Rehab to be considered.
Will F/U.
[2024-05-27] MEDS: LOVENOX 40 MG SC (16:28)
[2024-05-27] MEDS: MUCINEX PO (19:51)
--- NOTE | 2024-05-27 22:51 | PTCARENOTE ---
No assessment changes. pt aaox3, flat & withdrawn. Expressing that she wants to leave and she does not like taking the phenobarb because it makes her feel 'loopy' and weak. Although, pt was requesting the ativan d/t her anxiety. Educated pt what
ativan & phenobarb are ordered for. MSAS. BSC. PT still very weak. VSS. Drowsy. IVF. Will continue to monitor.
[2024-05-28] VITALS (10 sets, daily range): BP systolic 123–162; BP diastolic 79–113
[2024-05-28] MEDS: NSS 1000 IV ×3 (05:03→20:22)
[2024-05-28 05:38] LABS: % Basophils 0.2 % (0-2); % Eosinophils 2.4 % (0-6); % Immature Granulocytes 0.5 % (0-0.5); % Lymphocytes 39.8 % (20.5-51.1); % Monocytes 6.1 % (1.7-9.3); Absolute Eosinophils 0.2 10^3/uL (0-0.7); Absolute Lymphocytes 2.5 10^3/uL (1.2-3.4); Absolute Monocytes 0.4 10^3/uL (0.1-0.6); Absolute Neutrophils 3.2 10^3/uL (1.4-6.5); Hematocrit 36.8 % (37.0-47.0); Mean Corp Hgb Conc. 35.3 g/dL (33.0-37.0); Mean Corpuscular Hgb 32.8 pg (27.0-31.0); Mean Corpuscular Volume 92.9 fL (81.0-99.0); Mean Platelet Volume 9.2 fL (7.4-10.4); Nucleated Red Blood Cells % 0 %; Platelet Count 236 10^3/uL (130-400); Red Blood Cell Count 3.96 10^6/uL (4.20-5.40); Red Cell Dist. Width 13.2 % (11.5-14.5); White Blood Cell Count 6.2 10^3/uL (4.8-10.8)
[2024-05-28 05:58] LABS: ALT (SGPT) 21 U/L (0-35); AST (SGOT) 38 U/L (14-36); Albumin 3.8 g/dl (3.5-5.0); Alkaline Phosphatase 104 U/L (38-126); Blood Urea Nitrogen 5 mg/dl (7-17); Calcium 9.3 mg/dl (8.4-10.2); Carbon Dioxide 19 mmol/L (22-30); Chloride 108 mmol/L (98-107); Estimated Creatinine Clearance 116 ml/min; Glucose 97 mg/dl (70-99); Potassium 3.6 mmol/L (3.5-5.1); Sodium 136 mmol/L (135-145); Total Bilirubin 0.7 mg/dl (0.2-1.3); Total Protein 6.4 g/dl (6.3-8.2); eGFR > 60.00
[2024-05-28] MEDS: PROCARDIA XL (EXTENDED RELEASE) 60 MG PO (08:29)
[2024-05-28] MEDS: LEXAPRO 10 MG PO (08:31)
[2024-05-28] MEDS: MUCINEX 600 MG PO (08:32)
[2024-05-28] MEDS: TYLENOL 1000 MG PO ×2 (08:32→15:43)
[2024-05-28] MEDS: PROTONIX 40 MG PO (08:32)
[2024-05-28] MEDS: KLOR-CON 20 MEQ PO (08:33)
[2024-05-28] MEDS: THIAMINE INJECTION 200 MG IV ×2 (08:33→20:22)
[2024-05-28] MEDS: FOLVITE 1 MG PO (08:33)
[2024-05-28] MEDS: PHENOBARBITAL 97.5 MG IV (08:57)
[2024-05-28 09:21] LABS: Magnesium 1.7 mg/dl (1.6-2.3)
--- NOTE | 2024-05-28 09:59 | PTCARENOTE ---
Assumed care at 0700. VSS. AOx3, anxious. During AM med pass, patient refusing phenobarbital. After reinforcing plan of care, patient reluctantly agrees to all scheduled AM medications. MSAS 4 this AM, see flowsheet for details. Reports 2 loose BMs
overnight. Maintains ability to ambulate self to BSC. Encouraged to continue to make needs known.
--- NOTE | 2024-05-28 10:31 | W.PN.HOSP.TC ---
Addendum entered and electronically signed by Perry Patino MD 05/28/24 12:47:
seen and examined by me independently in collaboration with the medical language specialist.
Lab data data reviewed.
Addendum as below :
Patient without tremors or confusion. Improved tachycardia. Blood pressure stable. Feels anxious.
Tolerating diet.
No tremors. Alert and oriented x 3. Abdomen benign.
Patient states that she was feeling very sleepy with the phenobarbital and unable to function and work with PT. Will hold the IV dose and go to a lower dose tomorrow and see how she does.
Stable for transfer to [facility].
Appreciate psychiatry input-initiated on antidepressants.
Original Note:
Today's Communication/Plan
-
- Start escitalopram.
- MSAS protocol.
- Continue lorezapam and phenobarbital taper.
- IV hydration, PPI, seizure precautions.
- Follow CMP.
Assessment / Plan
Assessment / Plan
Assessment
Svetlana Mendez, age 59, presented to the ED with alcohol withdrawal symptoms on 05-26-24. She has been feeling increasingly anxious over the past few years, and this got worse due to stresses from her job a few weeks ago. She went on a 2-day alcohol
binge prior to her arrival to the ED. She has been having dizziness tremors, nausea, vomiting, diarrhea, sweating, burning/pins and needle sensation in her feet and hands. Of note the patient had hip replacement surgery March 27 and has been
recovering.
Impression and plan
Alcohol withdrawal
- History of binge drinking and prior hospitalization
- Currently no seizures or altered mental status.
- Anion gap 16 on admission; metabolic acidosis likely secondary to alcohol use
- Admit to IMU.
- Lorazepam and phenobarbital taper per alcohol withdrawal protocol.
- Monitor for delirium tremens, seizures.
- IV hydration, PPI.
Generalized anxiety disorder
- She has had anxiety for years.
- Has not been treated pharmacologically but has been talking to a therapist.
- Discussed outpatient management strategies including the role of SSRIs.
- Treating the underlying anxiety is essential to preventing binging and relapses; discussed this as well.
- She is amenable to consider SSRIs; start escitalopram.
- In-patient psychiatry consult.
Anion-gap metabolic acidosis
- Likely secondary to alcohol.
- Continue IV fluids and monitor.
Hypomagnesemia
- Replete
Leukocytosis
- UA unremarkable.
- Likely reactive.
Transaminitis
- Total bili and AST mildly elevated.
- Likely secondary to alcohol use disorder.
- Monitor.
Essential hypertension
- Continue nifedipine.
DVT prophylaxis
- Enoxaparin.
Code status
- Full.
Anticipated Discharge: 24 - 48 hours
Subjective/Interval History
-
Date of Service: May 28, 2024
Objective Data
-
Labs:
Laboratory Results
05/28/24
05:10
WBC 6.2
Hgb 13.0
Hct 36.8 L
Plt Count 236
Sodium 136
Potassium 3.6
Chloride 108 H
Carbon Dioxide 19 L
BUN 5 L
Creatinine 0.5 L
Glucose 97
Calcium 9.3
Total Bilirubin 0.7
AST 38 H
ALT 21
Alkaline Phosphatase 104
Vital Signs:
Vital Signs
Temp Pulse Resp BP Pulse Ox
98.6 F 101 20 143/93 94
05/28/24 07:28 05/28/24 08:32 05/28/24 08:32 05/28/24 08:32 05/28/24 06:00
I&O
05/27/24 05/28/24 05/29/24
06:59 06:59 06:59
Intake Total 480 / 480 2940 / 2940
Output Total 1800 / 1800
Balance 480 / 480 1140 / 1140
Review of Systems
-
History Source: Patient
Constitutional: Reports Fatigue and Sleep Disturbance
EENT: Reports No Symptoms Reported
Respiratory: Reports No Symptoms
Cardiac: Reports No Symptoms
Abdomen/GI: Reports No Symptoms
Breast: Reports No Symptoms
Genitourinary: Reports No Symptoms
Musculoskeletal: Reports No Symptoms
Skin: Reports No Symptoms
Neuro: Reports Headache and Tremors (intermittent and mild)
Endocrine: Reports No Symptoms
Hematologic / Lymphatic: Reports No Symptoms
Allergy / Immunology: Reports No Symptoms
Psych: Reports Anxious
Physical Exam
-
General: No Apparent Distress and Comfortable
HEENT: Normocephalic, Atraumatic, Moist Mucous Membranes and Anicteric
Respiratory: Clear to Auscultation and Non Labored Respirations
Cardiac: Regular Rhythm and S1/S2
GI: Soft, Nontender and Nondistended
Genito-urinary: No Costovertebral Tender
Musculoskeletal: No Clubbing, No Cyanosis and No Edema
Skin: Warm, Dry and IV Access / Catheter Site
Neuro: Awake, Alert, Oriented and Nonfocal/Grossly Intact; Negative Tremors (not noted on exam)
Psych: Anxious
--- NOTE | 2024-05-28 11:54 | CM ---
manager digital ad operations met with patient and patient spoke with Lázaro from [facility] and she plans on following up with her therapist after discharge, and patient reports she has been provided with some antianxiety medications.
Plan; Home when stable.
--- NOTE | 2024-05-28 14:03 | W.PN.UPDATE ---
Update Note
Progress Note Update
Patient is doing better, now preoccupied with her physical problems, wants PT while she is still in hospital. Still has dysphoria, denies hopelessness or suicidal thoughts.
Lexapro was started, discussed F/U plans. At this point she is not interested in inpatient rehab.
[2024-05-28] MEDS: LOVENOX 40 MG SC (15:43)
[2024-05-28] MEDS: IMODIUM 2 MG PO (15:44)
--- NOTE | 2024-05-28 18:09 | PTCARENOTE ---
Patient has had [address] Patino aware, electronic order received for prn immodium, see MAR.
[2024-05-28] MEDS: MUCINEX PO (20:23)
[2024-05-28] MEDS: LUMINAL PO (20:24)
[2024-05-28] MEDS: ATIVAN 1 MG PO (20:34)
--- NOTE | 2024-05-28 20:47 | PTCARENOTE ---
Received patient frustrated c/o IV pump alarming. Pt stated it has been alarming all day. Pump alarming occlusion. IV flushed, re-primed IV line. IV pump continues to alarm. IV team aware; CHARLENE Abrams placed new IV and removed old one.
[2024-05-29] VITALS (12 sets, daily range): BP systolic 128–184; BP diastolic 88–121
[2024-05-29] MEDS: NSS 1000 IV (04:08)
[2024-05-29] MEDS: TYLENOL 1000 MG PO ×2 (04:12→20:27)
--- NOTE | 2024-05-29 04:21 | PTCARENOTE ---
MSAS <5. Requesting Ativan; pt made aware Ativan is for true withdrawal symptoms. Pt up all night voiding frequently in BSC. c/o headache; tylenol provided. Tele showing NSR. Call sequeira within reach.
[2024-05-29] MEDS: LEXAPRO 10 MG PO (08:14)
[2024-05-29] MEDS: PROCARDIA XL (EXTENDED RELEASE) 60 MG PO (08:14)
[2024-05-29] MEDS: MUCINEX PO ×3 (08:14→20:24)
[2024-05-29] MEDS: PROTONIX 40 MG PO (08:15)
[2024-05-29] MEDS: FOLVITE 1 MG PO (08:15)
[2024-05-29] MEDS: LUMINAL PO ×2 (08:15→15:18)
[2024-05-29] MEDS: THIAMINE INJECTION 200 MG IV (08:16)
[2024-05-29] MEDS: KLOR-CON 20 MEQ PO (08:16)
--- NOTE | 2024-05-29 08:40 | PTCARENOTE ---
pt turned IV pump off this morning d/t IV pump apparently beeping. Pt did not let RN or PCT know that pump had been beeping. When RN asked pt where beeping was coming from pt pointed at tele monitor screen. This RN informed pt that pt is not allowed
to touch IV pumps. Spoke w/ hospitalist about d/c IV fluids as pt had urine output of over 2L overnight. Pt also drinking and eating appropriately. IV fluids disconnected as discussed w/ MD. pt updated on plan of care.
[2024-05-29 09:40] LABS: Hemoglobin 13.4 g/dL (12.0-16.0); Mean Corp Hgb Conc. 35.3 g/dL (33.0-37.0); Mean Corpuscular Hgb 33.6 pg (27.0-31.0); Mean Corpuscular Volume 95.2 fL (81.0-99.0); Mean Platelet Volume 9.6 fL (7.4-10.4); Platelet Count 243 10^3/uL (130-400); Red Blood Cell Count 3.99 10^6/uL (4.20-5.40); Red Cell Dist. Width 13.2 % (11.5-14.5); White Blood Cell Count 8.3 10^3/uL (4.8-10.8)
[2024-05-29] MEDS: ATIVAN 0.5 MG PO (09:48)
[2024-05-29 09:56] LABS: ALT (SGPT) 24 U/L (0-35); AST (SGOT) 41 U/L (14-36); Albumin 4.2 g/dl (3.5-5.0); Alkaline Phosphatase 90 U/L (38-126); Blood Urea Nitrogen 6 mg/dl (7-17); Calcium 9.7 mg/dl (8.4-10.2); Carbon Dioxide 21 mmol/L (22-30); Chloride 106 mmol/L (98-107); Estimated Creatinine Clearance 116 ml/min; Glucose 100 mg/dl (70-99); Potassium 3.9 mmol/L (3.5-5.1); Sodium 136 mmol/L (135-145); Total Bilirubin 0.5 mg/dl (0.2-1.3); Total Protein 6.8 g/dl (6.3-8.2); eGFR > 60.00
--- NOTE | 2024-05-29 10:43 | PTCARENOTE ---
pt expressing feelings of anxiety and asking for ativan. Explained to pt that ativan is ordered for alcohol withdrawal symptoms and pt does not currently meet criteria. Pt asked this RN what she needs to meet criteria. This RN explained that isn't
appropriate. However, RN will reach out to doctor to get medication for anxiety. Pt understanding. Pt ordered medication for anxiety, given as ordered. See MAR.
--- NOTE | 2024-05-29 13:47 | W.PN.HOSP.TC ---
Addendum entered and electronically signed by Say Padilla MD 05/29/24 14:26:
I personally performed a history and physical exam of the patient and discussed management with the resident. I reviewed the resident's note and agree with the documented findings and plan of care HPI/CC except changes in documentation.
59-year-old female with alcohol abuse and withdrawal symptoms anxiety and depression
On examination patient extremely anxious
# Alcohol withdrawal-
MSAS protocol to be continued with Ativan
Patient is also on phenol taper
Admits to binge drinking
Underlying anxiety and depression
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
Hydroxyzine as needed for withdrawal symptoms ( Resident note says Hydralazine - which should be Hydroxyzine)
EKG in the morning to check QTc
# Hypokalemia-resolved
# Elevated LFTs-likely secondary alcohol effects -monitor
# Anxiety depression-started on exaprolol
# History of alcohol induced pancreatitis
# Hypertension-continue nifedipine
# Obesity per BMI
# Ex-smoker
# DVT prophylaxis-Lovenox
# Full code
D/W RN
Transfer to tele
Original Note:
Today's Communication/Plan
-
Hydralazine and gabapentin for anxiety alcohol withdrawal
Transferred to [facility] on telemetry
Continue to monitor
Assessment / Plan
Assessment / Plan
Assessment
Svetlana Mendez, age 59, presented to the ED with alcohol withdrawal symptoms on 05-26-24. She has been feeling increasingly anxious over the past few years, and this got worse due to stresses from her job a few weeks ago. She went on a 2-day alcohol
binge prior to her arrival to the ED. She has been having dizziness tremors, nausea, vomiting, diarrhea, sweating, burning/pins and needle sensation in her feet and hands. Of note the patient had hip replacement surgery March 27 and has been
recovering.
Impression and plan
Alcohol withdrawal
- History of binge drinking and prior hospitalization
- Currently no seizures or altered mental status.
- Anion gap 16 on admission; Now resolved
- Transfer to [facility] on telemetry
- Pt was drowsy last night and unable to work with PT. PM dose held and morning dose lowered. Continue current lower phenobarbital taper dose
- Patient complaining of increased anxiety
-Hydralazine and gabapentin for anxiety and alcohol withdrawal symptoms
-Monitor for delirium tremens, seizures.
- IV fluids held as patient is now tolerating fluids well
-Continue PPI.
Generalized anxiety disorder
- She has had anxiety for years.
- Has not been treated pharmacologically but has been talking to a therapist.
-Agreeable to start escitalopram per psychiatry
Anion-gap metabolic acidosis
- resolved
-Monitor BMP
Hypomagnesemia
- Replete as needed
Leukocytosis
- UA unremarkable.
- Likely reactive
-Resolved
Transaminitis
- Total bili and AST mildly elevated.
- Likely secondary to alcohol use disorder.
- Monitor.
Essential hypertension
- Continue nifedipine.
DVT prophylaxis
- Enoxaparin.
Code status
- Full.
Anticipated Discharge: 24 - 48 hours
Subjective/Interval History
-
Date of Service: May 29, 2024
Objective Data
-
Labs:
Laboratory Results
05/29/24
09:24
WBC 8.3
Hgb 13.4
Hct 38.0
Plt Count 243
Sodium 136
Potassium 3.9
Chloride 106
Carbon Dioxide 21 L
BUN 6 L
Creatinine 0.5 L
Glucose 100 H
Calcium 9.7
Total Bilirubin 0.5
AST 41 H
ALT 24
Alkaline Phosphatase 90
Vital Signs:
Vital Signs
Temp Pulse Resp BP Pulse Ox
98.2 F 98 13 141/88 96
05/29/24 11:23 05/29/24 10:53 05/29/24 10:53 05/29/24 10:53 05/29/24 10:00
I&O
05/28/24 05/29/24 05/30/24
06:59 06:59 06:59
Intake Total 2940 / 2940 938 / 938
Output Total 1800 / 1800 2700 / 2700 200 / 200
Balance 1140 / 1140 -1762 / -1762 -200 / -200
Review of Systems
-
Respiratory: Reports No Symptoms
Cardiac: Reports Palpitations
Abdomen/GI: Reports Nausea
Genitourinary: Reports No Symptoms
Neuro: Reports Dizzy
Psych: Reports Anxious
Physical Exam
-
Respiratory: Clear to Auscultation
Cardiac: Regular Rhythm and S1/S2
GI: Soft, Nontender and Nondistended
Musculoskeletal: No Edema
Skin: Warm and Dry
Neuro: AO x 3
Psych: Agitated and Anxious
[2024-05-29 14:32] LABS: Magnesium 1.5 mg/dl (1.6-2.3)
[2024-05-29] MEDS: NEURONTIN 100 MG PO ×2 (15:19→21:11)
[2024-05-29] MEDS: ATARAX 10 MG PO (15:19)
--- NOTE | 2024-05-29 16:11 | PTCARENOTE ---
updated pt on plan of care including pt being transferred to [facility]. Pt upset that she is changing rooms when her sister is coming to visit. Explained to pt that she no longer requires IMU level of care. Pt also upset regarding medications that were
prescribed for her for anxiety. Pt states 'whatever you gave me had the opposite effect.' pt was given atarax and gapabentin as ordered. Pt had refused phenobarbital that was also prescribed for withdrawal symptoms. Dr. Padilla updated as well as
Dr. Fisher.
--- NOTE | 2024-05-29 16:42 | PTCARENOTE ---
Patient transferred from IMU to . Report received from CHARLENE Herrera. Patient oriented to unit. Call sequeira within reach.
--- NOTE | 2024-05-29 16:45 | PTCARENOTE ---
upon transfer to [address] [place] [id number] pt requesting phenobarbital after prior refusal. This RN changed 'pt refused' documentation in DEC, so RN Emily Flores will be able to administer 1600 dose.
[2024-05-29] MEDS: LUMINAL 64.8 MG PO ×2 (16:49→21:11)
[2024-05-29] MEDS: LOVENOX 40 MG SC (16:50)
[2024-05-29] MEDS: VITAMIN B1 100 MG PO (20:24)
[2024-05-30] VITALS (8 sets, daily range): BP systolic 133–161; BP diastolic 86–111; PULSE 89–93; O2SAT 97
[2024-05-30] MEDS: FOLVITE 1 MG PO (08:17)
[2024-05-30] MEDS: NEURONTIN 100 MG PO ×3 (08:17→21:03)
[2024-05-30] MEDS: PROTONIX 40 MG PO (08:17)
[2024-05-30] MEDS: VITAMIN B1 100 MG PO ×2 (08:17→20:52)
[2024-05-30] MEDS: LEXAPRO 5 MG PO (08:18)
[2024-05-30] MEDS: PROCARDIA XL (EXTENDED RELEASE) 60 MG PO (08:18)
[2024-05-30] MEDS: MUCINEX PO ×2 (08:18→20:52)
[2024-05-30] MEDS: KLOR-CON 20 MEQ PO (08:19)
[2024-05-30 08:20] LABS: Hematocrit 39.5 % (37.0-47.0); Hemoglobin 13.6 g/dL (12.0-16.0); Mean Corp Hgb Conc. 34.4 g/dL (33.0-37.0); Mean Corpuscular Hgb 33.3 pg (27.0-31.0); Mean Corpuscular Volume 96.8 fL (81.0-99.0); Mean Platelet Volume 9.7 fL (7.4-10.4); Platelet Count 250 10^3/uL (130-400); Red Blood Cell Count 4.08 10^6/uL (4.20-5.40); Red Cell Dist. Width 13.4 % (11.5-14.5); White Blood Cell Count 8.1 10^3/uL (4.8-10.8)
--- NOTE | 2024-05-30 08:25 | PTCARENOTE ---
Pt concerned about elevated bp. This am bp is 152/107 heart rate 86. Pt states she takes 90 mg of Procardia at home but is prescribed 60 mg once a day. Dr. Padilla notified. PRN dose of tylenol given for arthritic pain.
[2024-05-30] MEDS: TYLENOL 1000 MG PO ×3 (08:30→22:38)
--- NOTE | 2024-05-30 08:37 | PTCARENOTE ---
Messaged resident Christine Fisher to see if she could come speak with patient about elevated bp and at home medication regimen. Patient is concerned
[2024-05-30 08:48] LABS: ALT (SGPT) 30 U/L (0-35); AST (SGOT) 45 U/L (14-36); Albumin 4.3 g/dl (3.5-5.0); Alkaline Phosphatase 94 U/L (38-126); Blood Urea Nitrogen 9 mg/dl (7-17); Calcium 9.9 mg/dl (8.4-10.2); Carbon Dioxide 21 mmol/L (22-30); Chloride 102 mmol/L (98-107); Estimated Creatinine Clearance 116 ml/min; Glucose 102 mg/dl (70-99); Potassium 3.7 mmol/L (3.5-5.1); Sodium 134 mmol/L (135-145); Total Bilirubin 0.4 mg/dl (0.2-1.3); Total Protein 6.9 g/dl (6.3-8.2); eGFR > 60.00
[2024-05-30 11:11] LABS: Magnesium 1.5 mg/dl (1.6-2.3)
--- NOTE | 2024-05-30 11:27 | W.PN.UPDATE ---
Update Note
Progress Note Update
Patient seen, chart reviewed, discussed with staff. Ms. Mendez is upset this AM as she feels her BP was elevated and she wanted to adjust her medications which she does at home (takes extra dose) when she feels symptoms such as burred vision or a
headache. Otherwise, she is doing well and is hoping to go home tomorrow. We discuss at length the benefit of have a good plan to succeed in sobriety as she is not interested in rehab. Ms. Mendez has given more thought to what triggers her to drink
including anxiety and/or depression. She has had no ill effects since starting the Lexapro and is giving consideration to follow up with a psychiatrist for medication management once discharged. She does have a therapist already. We also discuss
Gabapentin having some effect on anxiety (currently prescribed for pain). Denies any withdrawal symptoms currently.
Impression/Recommendations: ETOH use disorder, severe with withdrawal symptoms; Depressive disorder unspecified, Anxiety disorder unspecified - Continue with Pheno taper and MSAS protocol, continue Lexapro currently at 5mg and could consider
increase to 10mg in 2 weeks or so. F/U with OP therapist at [facility] and consider f/u for med management.
[2024-05-30] MEDS: PROCARDIA XL (EXTENDED RELEASE) 30 MG PO (11:44)
[2024-05-30] MEDS: MAGNESIUM SULFATE 102 GRAMS IV (11:44)
--- NOTE | 2024-05-30 11:48 | CM ---
Reviewed the chart notes and spoke with the patient at the bedside. Patient anticipates being discharged tomorrow to home with no anticipated needs from CM. Patient will follow-up with outpatient therapist. CM continues to be available to
patient/family and is monitoring medical plan for needs at discharge.
Plan: Discharge to home when medically stable.
--- NOTE | 2024-05-30 14:18 | W.PN.HOSP.TC ---
Addendum entered and electronically signed by Say Padilla MD 05/30/24 14:48:
I personally performed a history and physical exam of the patient and discussed management with the resident. I reviewed the resident's note and agree with the documented findings and plan of care HPI/CC except changes in documentation.
59-year-old female with alcohol abuse and withdrawal symptoms anxiety and depression. Had some blurry vision earlier today along with dizziness even in bed. Patient attributes it to her blood pressure running high 160/100 yesterday. States that
since blood pressure came down she feels better and symptoms are gone. Apparently she has been exercising her legs also.
Awake alert
No cerebellar signs
Neuroexam is nonfocal
No nystagmus
No facial droop
Cardiovascular system S1-S2 appreciated
Chest clear to auscultation
# Alcohol withdrawal-Admits to binge drinking
MSAS protocol to be continued with Ativan
Patient is also on phenol taper
Underlying anxiety and depression
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
Hydroxyzine as needed for withdrawal symptoms
EKG QTc normal
# Hypokalemia-resolved
# Elevated LFTs-likely secondary alcohol effects -monitor
# Anxiety depression-started on exaprolol
# History of alcohol induced pancreatitis
# Hypertension-continue nifedipine
# Obesity per BMI
# Ex-smoker
# DVT prophylaxis-Lovenox
# Full code
D/W RN
Possible discharge tomorrow
Original Note:
Today's Communication/Plan
-
BP medication increased
Likely discharge tomorrow
Assessment / Plan
Assessment / Plan
Assessment
Svetlana Mendez, age 59, presented to the ED with alcohol withdrawal symptoms on 05-26-24. She has been feeling increasingly anxious over the past few years, and this got worse due to stresses from her job a few weeks ago. She went on a 2-day alcohol
binge prior to her arrival to the ED. She has been having dizziness tremors, nausea, vomiting, diarrhea, sweating, burning/pins and needle sensation in her feet and hands. Of note the patient had hip replacement surgery March 27 and has been
recovering.
Impression and plan
Alcohol withdrawal
- History of binge drinking and prior hospitalization
- Currently no seizures or altered mental status.
- Anion gap 16 on admission; Now resolved
- On telemetry
- Continue current lower phenobarbital taper dose
- Patient complaining of increased anxiety
-Patient did not like how she felt on hydroxyzine. Continue gabapentin for anxiety and alcohol withdrawal symptoms
-Monitor for delirium tremens, seizures.
- IV fluids held as patient is now tolerating fluids well
-Continue PPI
Generalized anxiety disorder
- She has had anxiety for years.
- Has not been treated pharmacologically but has been talking to a therapist.
-Agreeable to start escitalopram per psychiatry
Anion-gap metabolic acidosis
- resolved
-Monitor BMP
Hypomagnesemia
- Replete as needed
Leukocytosis
- UA unremarkable.
- Likely reactive
-Resolved
Transaminitis
- Total bili and AST mildly elevated.
- Likely secondary to alcohol use disorder.
- Monitor.
Essential hypertension
- Continue nifedipine.
-Patient complained of headache, dizziness and blurry vision. Patient is adamant that blurry vision is due to hypertension and does not want any additional workup. She stated at home she takes 90 mg of nifedipine by taking 60 mg capsule and
another half capsule in the afternoon. An additional 30 mg of nifedipine was added to patient's medications. Blood pressure has decreased and patient states her headache is gone, blurry vision a lot better and dizziness a lot better.
DVT prophylaxis
- Enoxaparin.
Code status
- Full.
Anticipated Discharge: Within 24 hours
Subjective/Interval History
-
Date of Service: May 30, 2024
Objective Data
-
Labs:
Laboratory Results
05/30/24
07:38
WBC 8.1
Hgb 13.6
Hct 39.5
Plt Count 250
Sodium 134 L
Potassium 3.7
Chloride 102
Carbon Dioxide 21 L
BUN 9
Creatinine 0.6
Glucose 102 H
Calcium 9.9
Total Bilirubin 0.4
AST 45 H
ALT 30
Alkaline Phosphatase 94
Vital Signs:
Vital Signs
Temp Pulse Resp BP Pulse Ox
98.3 F 92 18 140/86 97
05/30/24 11:30 05/30/24 11:44 05/30/24 11:30 05/30/24 11:44 05/30/24 11:30
I&O
05/29/24 05/30/24 05/31/24
06:59 06:59 06:59
Intake Total 938 / 938 400 / 400
Output Total 2700 / 2700 200 / 200
Balance -1762 / -1762 200 / 200
Review of Systems
-
History Source: Patient
EENT: Reports Blurry Vision
Respiratory: Reports No Symptoms
Cardiac: Reports No Symptoms
Abdomen/GI: Denies Diarrhea (loose stools but not outright diarrhea)
Genitourinary: Reports No Symptoms
Neuro: Reports Dizzy and Headache
Physical Exam
-
General: Appears in Distress
Respiratory: Clear to Auscultation
Cardiac: Regular Rhythm and S1/S2
GI: Soft, Nontender and Nondistended
Musculoskeletal: No Edema
Skin: Warm and Dry
Neuro: AO x 3 and No Motor Deficits
Psych: Calm
[2024-05-30] MEDS: LOVENOX 40 MG SC (17:09)
[2024-05-30] MEDS: LUMINAL 32.4 MG PO (21:03)
[2024-05-31] VITALS (7 sets, daily range): BP systolic 138–158; BP diastolic 69–106; PULSE 80–90
[2024-05-31] MEDS: PROCARDIA XL (EXTENDED RELEASE) 60 MG PO (05:51)
[2024-05-31] MEDS: TYLENOL 1000 MG PO ×3 (06:37→20:14)
[2024-05-31 06:58] LABS: Hematocrit 35.2 % (37.0-47.0); Hemoglobin 11.9 g/dL (12.0-16.0); Mean Corp Hgb Conc. 33.8 g/dL (33.0-37.0); Mean Corpuscular Hgb 32.3 pg (27.0-31.0); Mean Corpuscular Volume 95.7 fL (81.0-99.0); Mean Platelet Volume 9.9 fL (7.4-10.4); Platelet Count 244 10^3/uL (130-400); Red Blood Cell Count 3.68 10^6/uL (4.20-5.40); Red Cell Dist. Width 13.6 % (11.5-14.5); White Blood Cell Count 6.3 10^3/uL (4.8-10.8)
[2024-05-31 07:23] LABS: Blood Urea Nitrogen 9 mg/dl (7-17); Calcium 9.7 mg/dl (8.4-10.2); Carbon Dioxide 23 mmol/L (22-30); Chloride 105 mmol/L (98-107); Estimated Creatinine Clearance 116 ml/min; Glucose 91 mg/dl (70-99); Potassium 3.5 mmol/L (3.5-5.1); Sodium 137 mmol/L (135-145); eGFR > 60.00
[2024-05-31] MEDS: VITAMIN B1 100 MG PO ×2 (08:14→20:14)
[2024-05-31] MEDS: PROTONIX 40 MG PO (08:15)
[2024-05-31] MEDS: NEURONTIN 100 MG PO ×3 (08:15→21:07)
[2024-05-31] MEDS: MAGNESIUM OXIDE 500 MG PO (08:15)
[2024-05-31] MEDS: FOLVITE 1 MG PO (08:15)
[2024-05-31] MEDS: LUMINAL 32.4 MG PO ×2 (08:15→21:08)
[2024-05-31] MEDS: LEXAPRO 5 MG PO (08:15)
[2024-05-31] MEDS: KLOR-CON 20 MEQ PO (08:16)
[2024-05-31] MEDS: MUCINEX PO ×2 (08:16→20:09)
--- NOTE | 2024-05-31 08:47 | PTOTSP ---
attempted intervention, pt reports she is up in room ad sandra, able to complete simple ADLs, functional transfers, ambulation with no assistance. pt reports she is wanting to participate in PT while hospitalized and has no acute OT needs. will sign
off per pt's request.
[2024-05-31] MEDS: KCL 20 MEQ PO (09:59)
[2024-05-31 10:57] LABS: Magnesium 1.8 mg/dl (1.6-2.3); Phosphorus 4.7 mg/dl (2.5-4.5)
--- NOTE | 2024-05-31 11:51 | W.PN.UPDATE ---
Update Note
Progress Note Update
patient seen chart reviewed. discussed w nursing. the patient was originally in a s/w irritated mood. she felt her needs were not being met. she complained that she is being dc'ed today and she does not feel she is ready. she c/o dizziness and is
fearful she will be dizzy when she goes home. apparently she was offered a cat scan and had refused. we discussed the potential benefits of having a cat scan and she agreed. we also discussed the possible origins of her 'dizziness' including as it
may relat to her alcohol abuse damage cerebellum posterior columns withdrawal phenomenon (diastolic bps are still high earlier this am ). she does admit that she is a very anxious person and sees the etoh as related to the anxiety. . she knows
that she needs to stop drinking and has had long periods of sobriety in the past. she is attending [facility] and has a therapist there but not sure she connects with her. she is hoping to find a psychiatrist and we discussed places where she may be able
to see a psychiatrist and a therapist. agree w lexapro would consider increase in lexapro in the next week. i would suggest she remain another day as i would like to try to convince her to accept in pt rehab if that is at all possible as it may
give her a better chance at sobriety. i tried to talk w her about it today. another option might be partial hospital or the [facility] program at [facility]. she still has one more day of phenobarb to go. will follow if she remains. )
--- NOTE | 2024-05-31 12:48 | CM ---
Reviewed the chart notes. CM continues to be available to patient/family and is monitoring medical plan for needs at discharge.
Plan: Discharge to home when medically stable. No needs anticipated.
--- NOTE | 2024-05-31 12:58 | PTCARENOTE ---
Pt ordered CT of the head for dizziness today. Pt refused CT unless she can stay overnight, per MD pt is stable for DC. MD made aware of refusal of CT, psych MD updated as well at bedside. No new orders at this time.
[2024-05-31] MEDS: PROCARDIA XL (EXTENDED RELEASE) 30 MG PO (13:37)
--- NOTE | 2024-05-31 16:20 | W.PN.HOSP.TC ---
Addendum entered and electronically signed by Say Padilla MD 05/31/24 16:49:
I personally performed a history and physical exam of the patient and discussed management with the resident. I reviewed the resident's note and agree with the documented findings and plan of care HPI/CC.
Patient was complaining of dizziness at rest and with movement
Orthostatic vital signs were obtained negative
CT of the head normal
Psychiatry wanted to keep the patient another day.
2 more doses of phenobarbital
Discharge tomorrow
Original Note:
Today's Communication/Plan
-
Patient clinically stable for discharge. Remaining overnight per psychiatry to continue phenobarbital dose and try to convince patient for inpatient rehab for better chance of sobriety.
Assessment / Plan
Assessment / Plan
Assessment
Svetlana Mendez, age 59, presented to the ED with alcohol withdrawal symptoms on 05-26-24. She has been feeling increasingly anxious over the past few years, and this got worse due to stresses from her job a few weeks ago. She went on a 2-day alcohol
binge prior to her arrival to the ED. She has been having dizziness tremors, nausea, vomiting, diarrhea, sweating, burning/pins and needle sensation in her feet and hands. Of note the patient had hip replacement surgery March 27 and has been
recovering.
Impression and plan
Alcohol withdrawal
- History of binge drinking and prior hospitalization
- Currently no seizures or altered mental status.
- Anion gap 16 on admission; Now resolved
- On telemetry
- Continue current lower phenobarbital taper dose
- Patient complaining of increased anxiety
-Patient did not like how she felt on hydroxyzine. Continue gabapentin for anxiety and alcohol withdrawal symptoms
-Monitor for delirium tremens, seizures.
- IV fluids held as patient is now tolerating fluids well
-Continue PPI
-Patient complained of dizziness. Head CT done. Normal.
-Patient no longer in withdrawal and clinically stable, however psychiatry would like to keep her 1 more day to continue phenobarbital and try to convince the patient to go to inpatient rehab for better chance of sobriety. Psychiatry following.
Generalized anxiety disorder
- She has had anxiety for years.
- Has not been treated pharmacologically but has been talking to a therapist.
-Agreeable to start escitalopram per psychiatry
Anion-gap metabolic acidosis
- resolved
-Monitor BMP
Hypomagnesemia
- resolved
Leukocytosis
- UA unremarkable.
- Likely reactive
-Resolved
Transaminitis
- Total bili and AST mildly elevated.
- Likely secondary to alcohol use disorder.
- Monitor.
Essential hypertension
- Continue nifedipine.
-Patient complained of headache, dizziness and blurry vision. Patient is adamant that blurry vision is due to hypertension and does not want any additional workup. She stated at home she takes 90 mg of nifedipine by taking 60 mg capsule and
another half capsule in the afternoon. An additional 30 mg of nifedipine was added to patient's medications. Blood pressure has decreased and patient states her headache is gone, blurry vision a lot better and dizziness a lot better.
-Patient still complained of dizziness. Head CT done. Normal.
DVT prophylaxis
- Enoxaparin.
Code status
- Full.
Anticipated Discharge: Within 24 hours
Subjective/Interval History
-
Date of Service: May 31, 2024
Objective Data
-
Labs:
Laboratory Results
05/31/24
05:48
WBC 6.3
Hgb 11.9 L
Hct 35.2 L
Plt Count 244
Sodium 137
Potassium 3.5
Chloride 105
Carbon Dioxide 23
BUN 9
Creatinine 0.6
Glucose 91
Calcium 9.7
Vital Signs:
Vital Signs
Temp Pulse Resp BP Pulse Ox
98.1 F 78 18 148/95 100
05/31/24 15:40 05/31/24 15:40 05/31/24 15:40 05/31/24 15:40 05/31/24 15:40
I&O
05/30/24 05/31/24 06/01/24
06:59 06:59 06:59
Intake Total 400 / 400 2099
Output Total 200 / 200
Balance 200 / 200 2099
Review of Systems
-
Respiratory: Reports No Symptoms
Cardiac: Reports No Symptoms
Abdomen/GI: Reports Other (Loose stools but not diarrhea)
Genitourinary: Reports No Symptoms
Neuro: Reports Dizzy
Psych: Reports Anxious
Physical Exam
-
Respiratory: Clear to Auscultation
Cardiac: Regular Rhythm and S1/S2
GI: Soft, Nontender and Nondistended
Musculoskeletal: No Edema
Skin: Warm and Dry
Neuro: AO x 3
Psych: Anxious
[2024-05-31] MEDS: LOVENOX 40 MG SC (17:00)
--- NOTE | 2024-05-31 19:23 | PTCARENOTE ---
Pt MSAS assessment done per protocol. Pt has been < 4 for 48 hrs.
--- NOTE | 2024-05-31 22:06 | W.PN.UPDATE ---
Update Note
Progress Note Update
Stopped magnesium due to loose stools..she also states she has diarrhea whenever she takes lexapro. Her mag levels run low consistently though. She may need a better tolerated magnesium supplement (time-release) at discharge.
[2024-05-31] MEDS: IMODIUM 2 MG PO (22:09)
[2024-06-01 04:30] VITALS: BP 168/108
[2024-06-01] MEDS: PROCARDIA XL (EXTENDED RELEASE) 60 MG PO (06:01)
--- NOTE | 2024-06-01 06:19 | PTCARENOTE ---
Pt continues to be anxious and restless. Pt has been demanding and wanting to leave on time. Pt c/o loose stools and wants a med to stop her loose stool. Pt was informed that she needs to wait for stool sample results. Imodium was giving preciously,
one time dose per DIALYSIS TECHNICIAN.
[2024-06-01 07:35] VITALS: BP 161/99
--- NOTE | 2024-06-01 08:34 | W.PN.HOSP.TC ---
Addendum entered and electronically signed by Say Padilla MD 06/01/24 11:22:
I personally performed a history and physical exam of the patient and discussed management with the resident. I reviewed the resident's note and agree with the documented findings and plan of care HPI/CC except changes in documentation.
I was in to see the patient earlier today. Late documentation.
Anxious to go home!
She stated that she had a diarrheal episode last night and none this morning. Also stated that her ride was going to be here at 11 and she needs to get out of here. She no longer has any dizziness that is completely gone. No abdominal pain belly
feels 'fine'. She stated that the resident examined her abdomen and she does not need another examination today, and did not let me examine. Magnesium stopped as this can also contribute to loose stools.
C. difficile negative.
Discussed with the patient that cultures are pending.
Dr. Fisher to follow on the cultures and notify.
Patient expressed wishes to follow-up with resident clinic.
Lab slip for blood work in 1 week provided.
Psychiatry also texted us about patient wanting to leave.
She felt fine and did not want to take the last dose of phenobarbital.
Alcohol cessation, weight loss or advised on discharge structures
New prescription for nifedipine, Neurontin, Lexapro provided
She needs to follow-up with PCP
Total time for discharge coordination more than 30 min
Original Note:
Today's Communication/Plan
-
Discharged today on 90 nifedipine. If stool cultures come back positive we will send an antibiotic. Patient plans to leave AMA if labs do not come back in time for us to medically clear her.
Assessment / Plan
Assessment / Plan
Assessment
Svetlana Mendez, age 59, presented to the ED with alcohol withdrawal symptoms on 05-26-24. She has been feeling increasingly anxious over the past few years, and this got worse due to stresses from her job a few weeks ago. She went on a 2-day alcohol
binge prior to her arrival to the ED. She has been having dizziness tremors, nausea, vomiting, diarrhea, sweating, burning/pins and needle sensation in her feet and hands. Of note the patient had hip replacement surgery March 27 and has been
recovering.
Impression and plan
Alcohol withdrawal
- History of binge drinking and prior hospitalization
- Currently no seizures or altered mental status.
- Anion gap 16 on admission; Now resolved
- On telemetry
- Continue current lower phenobarbital taper dose
- Patient complaining of increased anxiety
-Patient did not like how she felt on hydroxyzine. Continue gabapentin for anxiety and alcohol withdrawal symptoms
-Monitor for delirium tremens, seizures.
- IV fluids held as patient is now tolerating fluids well
-Continue PPI
-Patient complained of dizziness. Head CT done and is normal. Orthostatic vitals normal. Patient states today she has no more dizziness.
-Patient no longer in withdrawal and clinically stable, however psychiatry would like to keep her 1 more day to continue phenobarbital and try to convince the patient to go to inpatient rehab for better chance of sobriety. Psychiatry following.
-Patient wants to go home and is clinically stable for discharge. Discharge plan today
-Patient refused to get morning labs drawn. Stat orders were placed for K and Mg. Discussed importance of these labs with patient. Labs pending. Patient has ride at 11am. If labs do not come back patient still plans to leave AMA.
Diarrhea
-Pt has had diarrhea since starting starting lexipro
-Patient also on high-dose magnesium
-Stool culture sent out. Nurse that did not smell like C. diff. She has no tenderness on palpation. Has cramping right before she needs to use the bathroom. After going to the bathroom the pain goes away. Magnesium held. Patient still insistent to
go home.
-If cultures come back positive, patient will be sent a prescription for antibiotics
-Continue Lexapro
Generalized anxiety disorder
- She has had anxiety for years.
- Has not been treated pharmacologically but has been talking to a therapist.
-Agreeable to start escitalopram per psychiatry
Anion-gap metabolic acidosis
- resolved
-Monitor BMP
Hypomagnesemia
- resolved
-Todays labs pending
Leukocytosis
- UA unremarkable.
- Likely reactive
-Resolved
Transaminitis
- Total bili and AST mildly elevated.
- Likely secondary to alcohol use disorder.
- Monitor.
Essential hypertension
- Continue nifedipine.
-Patient complained of headache, dizziness and blurry vision. Patient is adamant that blurry vision is due to hypertension and does not want any additional workup. She stated at home she takes 90 mg of nifedipine by taking 60 mg capsule and
another half capsule in the afternoon. An additional 30 mg of nifedipine was added to patient's medications. Blood pressure has decreased and patient states her headache is gone, blurry vision a lot better and dizziness a lot better.
-Patient still complained of dizziness. Head CT done. Normal.
-Patient will be discharged on 90 mg nifedipine.
DVT prophylaxis
- Enoxaparin.
Code status
- Full.
Anticipated Discharge: Today
Subjective/Interval History
-
Date of Service: June 01, 2024
Objective Data
-
Labs:
Laboratory Results
06/01/24
06:00
WBC Pending
Hgb Pending
Hct Pending
Plt Count Pending
Sodium Pending
Potassium Pending
Chloride Pending
Carbon Dioxide Pending
BUN Pending
Creatinine Pending
Glucose Pending
Calcium Pending
Total Bilirubin Pending
AST Pending
ALT Pending
Alkaline Phosphatase Pending
Vital Signs:
Vital Signs
Temp Pulse Resp BP Pulse Ox
98.1 F 75 18 169/114 95
06/01/24 04:30 06/01/24 06:01 06/01/24 04:30 06/01/24 06:01 06/01/24 04:30
I&O
05/31/24 06/01/24 06/02/24
06:59 06:59 06:59
Intake Total 2099
Balance 2099
Review of Systems
-
History Source: Patient
EENT: Reports No Symptoms Reported
Respiratory: Reports No Symptoms
Cardiac: Reports No Symptoms
Abdomen/GI: Reports Diarrhea
Genitourinary: Reports No Symptoms
Neuro: Reports Headache; Denies Dizzy
Physical Exam
-
Respiratory: Clear to Auscultation
Cardiac: Regular Rhythm and S1/S2
GI: Soft, Nontender and Nondistended
Musculoskeletal: No Edema
Skin: Warm and Dry
Neuro: AO x 3
Psych: Calm
[2024-06-01] MEDS: LEXAPRO 5 MG PO (08:58)
[2024-06-01] MEDS: NEURONTIN 100 MG PO (08:58)
[2024-06-01] MEDS: VITAMIN B1 100 MG PO (08:58)
[2024-06-01] MEDS: LUMINAL PO (08:59)
[2024-06-01] MEDS: FOLVITE 1 MG PO (08:59)
[2024-06-01] MEDS: MUCINEX PO (09:01)
[2024-06-01] MEDS: PROTONIX PO (09:02)
[2024-06-01 10:40] LABS: Blood Urea Nitrogen 9 mg/dl (7-17); Calcium 9.8 mg/dl (8.4-10.2); Carbon Dioxide 25 mmol/L (22-30); Chloride 105 mmol/L (98-107); Estimated Creatinine Clearance 116 ml/min; Glucose 103 mg/dl (70-99); Magnesium 1.7 mg/dl (1.6-2.3); Sodium 138 mmol/L (135-145); eGFR > 60.00
--- NOTE | 2024-06-01 10:51 | W.DCSUMMARY ---
Documented by User: Christine Fisher MD, Resident 06/01/24 11:13
Discharge Summary
Discharge Data
Date of Admission: 05/26/24
Date of Discharge: 06/01/24
-
Pending Results: Yes
Additional Pending Results:
Stool cultures
Hospital Course
Primary diagnosis:
Alcohol withdrawal
Generalized anxiety disorder
Anion gap metabolic acidosis
Hypomagnesemia
Leukocytosis
Transaminitis
Essential hypertension
Secondary diagnoses:
Alcohol abuse
Hip replacement March,
Svetlana is a 59-year-old female with a past medical history of alcohol abuse and hypertension who presented to the ED on 05/26/24 in alcohol withdrawal. She tried to stop drinking for 3 days and developed nausea, vomiting, diarrhea, tremors, sweating
and heart palpitations. Her CIWA AR score was 23. She was found to have slight leukocytosis of 12.8, potassium 3.1, sodium 133, anion gap 16, magnesium 1.3, total bilirubin 1.4, AST 51 and was admitted to the hospital. She was started on a banana
bag, electrolyte replacement and alcohol withdrawal protocol. Over her time at the hospital her electrolytes continued to balance out. White blood cell count normalized. Bilirubin normalized and AST went down but remained slightly elevated.
Other LFTs normal. Magnesium had to be repleted a few times. Withdrawal symptoms started to dissipate. Patient also agreed to see a psychiatrist and was started on Lexapro. As the patient started to feel better she noticed a continuance of
dizziness, headache, and blurry vision. Patient was insistent that her symptoms were due to high blood pressure want workup for her blurry vision. Patient's blood pressure was ranging around 150s over 110s. Patient disclosed that usually she
takes 90 mg of nifedipine at home instead of her 60 by taking an extra half of a tablet. She also disclosed she used to take spironolactone but then stopped taking it. We changed her medication and patient felt much better, but still complained of
some dizziness and blurry vision. She agreed to a Head CT. It was normal. The next day the patient said her dizziness and blurry vision was gone she just had a residual headache. In addition, the patient started to have loose stools which turned
to diarrhea after starting Lexapro. Patient was also receiving oral magnesium. Magnesium was held, and stool culture was sent. Nurse noted stool did not smell like C. difficile. Patient did not have any abdominal tenderness with palpation. She
stated her cramping happened right before going to the bathroom and was relieved after going diarrhea.
Today, patient is clinically stable and insistent on going home. Patient has plans to follow-up BMP in 1 week and establish a new PCP with some of the staff she met at the hospital. Patient will continue on gabapentin and Lexapro to help with
alcohol withdrawal and anxiety. She will continue on nifedipine 90, but is not interested in starting spironolactone at this time and will discuss it with her PCP. Will follow-up stool cultures and send a prescription if positive for bacterial
infection. Patient is very anxious to get home.
Discharge Plan
-
Patient Disposition: Home (Routine Discharge)
Discharge Diagnosis/Procedures: Alcohol withdrawal, generalized anxiety disorder, anion gap metabolic acidosis, hypomagnesemia, leukocytosis, transaminitis, essential hypertension
Condition: Good
Diet: 2 Gram Sodium
Activity: As tolerated
Driving Restrictions: As prior to admission
Bathing Restrictions: None
Blood Work: BMP and Mag level 1 week
Activity Restrictions/Additional Instructions:
Stool cultures are pending at discharge. See PCP to adjust Blood pressure medicines. Please completely stop alcohol. Follow up with GI doctor if loose stools don't resolve. Weight loss advised.
Referrals:
Christine Fisher MD, Resident [Family Practice Resident Year1] - in two weeks
UNKNOWN - PT DOES,NOT KNOW [Family Provider] -
Prescriptions:
New
folic acid 1 mg Tablet
1 mg PO DAILY Qty: 30 0RF
gabapentin [Neurontin] 100 mg capsule
100 mg PO TID Qty: 90 0RF
nifedipine 90 mg tablet extended release
90 mg PO DAILY Qty: 30 0RF
thiamine HCl (vitamin B1) 100 mg tablet
100 mg PO DAILY Qty: 30 0RF
escitalopram oxalate 5 mg Tablet
5 mg PO DAILY Qty: 30 0RF
Continued
acetaminophen [Tylenol Extra Strength] 500 mg Tablet
1,000 mg PO Q6HPRN PRN (Reason: mild pain)
Discontinued
nifedipine 60 mg Tablet Extended Release 24hr
60 mg PO DAILY Qty: 30 0RF
Discharge Orders:
Discharge Patient (As Directed); Ordered 06/01/24
Ordered By: Christine Fisher
Discharge Date and Time
Discharge Date/Time: 06/01/24 12:16
Print Language: SAMMARINESE

Documented by User: Say Padilla MD 06/02/24 16:12
Discharge Summary
Discharge Data
Date of Admission: 05/26/24
Date of Discharge: 06/02/24
Hospital Course
Primary diagnosis:
Alcohol withdrawal
Generalized anxiety disorder
Anion gap metabolic acidosis
Hypomagnesemia
Leukocytosis
Transaminitis
Essential hypertension
Secondary diagnoses:
Alcohol Use disorder
Hip replacement March,
This is a 59-year-old female with a past medical history of alcohol abuse and hypertension who presented to the ED on 05/26/24 in alcohol withdrawal. She tried to stop drinking for 3 days and developed nausea, vomiting, diarrhea, tremors, sweating
and heart palpitations. Her CIWA AR score was 23. She was found to have slight leukocytosis of 12.8, potassium 3.1, sodium 133, anion gap 16, magnesium 1.3, total bilirubin 1.4, AST 51 and was admitted to the hospital. She was started on
electrolyte replacement and alcohol withdrawal protocol. Over her time at the hospital her electrolytes continued to balance out. White blood cell count normalized. Bilirubin normalized and AST went down but remained slightly elevated. Other
LFTs normal. Magnesium had to be repleted a few times. Withdrawal symptoms started to dissipate. Patient also agreed to see a psychiatrist and was started on Lexapro. As the patient started to feel better she noticed dizziness and headache.
Patient was insistent that her symptoms were due to high blood pressure . Patient's blood pressure was ranging around 150s over 110s. Patient disclosed that usually she takes 90 mg of nifedipine at home instead of her 60 by taking an extra half of
a tablet. She also disclosed she used to take spironolactone but then stopped taking it. We changed her medication and patient felt much better, but still complained of some dizziness . 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 Head CT
was normal. The next day the patient said her dizziness was gone she just had a mild residual headache. In addition, the patient started to have some soft loose stools which turned to diarrhea after starting Lexapro. Patient was also receiving
oral magnesium. Magnesium was held, and stool culture was sent. C. difficile was negative, cultures pending. Patient did not have any abdominal tenderness with palpation. She stated her cramping happened right before going to the bathroom and was
relieved after bowel movement.
Today, patient is clinically stable and insistent on going home. Patient has plans to follow-up BMP in 1 week and establish a new PCP with some of the staff she met at the hospital. Patient will continue on gabapentin and Lexapro to help with
alcohol withdrawal and anxiety. She will continue on nifedipine 90, but is not interested in starting spironolactone at this time and will discuss it with her PCP. Will follow-up stool cultures and send a prescription if positive for bacterial
infection. Patient is very anxious to get home.
Discharge Plan
-
Patient Disposition: Home (Routine Discharge)
Discharge Diagnosis/Procedures: Alcohol withdrawal, generalized anxiety disorder, anion gap metabolic acidosis, hypomagnesemia, leukocytosis, transaminitis, essential hypertension
Condition: Good
Diet: 2 Gram Sodium
Activity: As tolerated
Driving Restrictions: As prior to admission
Bathing Restrictions: None
Blood Work: BMP and Mag level 1 week
Activity Restrictions/Additional Instructions:
Stool cultures are pending at discharge. See PCP to adjust Blood pressure medicines. Please completely stop alcohol. Follow up with GI doctor if loose stools don't resolve. Weight loss advised.
Referrals:
Christine Fisher MD, Resident [Family Practice Resident Year1] - in two weeks
UNKNOWN - PT DOES,NOT KNOW [Family Provider] -
Prescriptions:
New
folic acid 1 mg Tablet
1 mg PO DAILY Qty: 30 0RF
gabapentin [Neurontin] 100 mg capsule
100 mg PO TID Qty: 90 0RF
nifedipine 90 mg tablet extended release
90 mg PO DAILY Qty: 30 0RF
thiamine HCl (vitamin B1) 100 mg tablet
100 mg PO DAILY Qty: 30 0RF
escitalopram oxalate 5 mg Tablet
5 mg PO DAILY Qty: 30 0RF
Continued
acetaminophen [Tylenol Extra Strength] 500 mg Tablet
1,000 mg PO Q6HPRN PRN (Reason: mild pain)
Discontinued
nifedipine 60 mg Tablet Extended Release 24hr
60 mg PO DAILY Qty: 30 0RF
Discharge Orders:
Discharge Patient (As Directed); Ordered 06/01/24
Ordered By: Christine Fisher
Discharge Date and Time
Discharge Date/Time: 06/01/24 12:16
Print Language: SAMMARINESE
--- NOTE | 2024-06-01 10:56 | PTCARENOTE ---
Pt refused this nurse and Dr José to do an assessment on her. She stated Dr. nina did one no one else needs to do one. So on assessment it will not be complete. Also pt removed her own IVC before nurse had time to get bandage material, cleaned
up bleeding.
--- NOTE | 2024-06-01 11:10 | W.PN.UPDATE ---
Update Note
Progress Note Update
patient seen chart reviewed spoke w nursing and cm. patient was concerned that she would not be ready to leave at eleven which is when her ride could come to get her. she perceived that staff did not care about her as she had told everyone she
needed to leave at eleven and in her perception suddenly she needed blood work and could not leave on time. in the end everything was accomplished so she could leave on time and her brother who was her ride assured her that whether it was eleven or
11:15 did not matter. so ensued a discussion essentially about how she had bc of her anxiety created a crisis where there was none, and if this occurs on a regular basis in her life one could see how her life could become unmanageable contributing
to her etoh use and her general unhappiness. she did not disagree. we explored other topics as well today including exactly what is her plan to stay sober. she is going to see her therapists at [facility]. she does not want to be seen at [facility] for psych
meds. feels her pcp can manage this. i suggested she think about ways to avoid using when she is tempted which for sure she will be. this should include making a list of ten simple things she promises to do when she gets tempted. could be calling
a friend, getting to an [employer] meeting (keep a list), walking around the block three times etc. things she can easily do for sure. i also suggested she work on getting herself in shape via exercise simply walking, water aerobics etc ( i think w
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 would continue current psych meds. one could increase gabapentin but i would favor a
psychotherapy approach to her 'anxiety' which is not exactly anxiety but similar to what happened this am. her loose stools could be from lexapro but this is a very small dose and she has been on it a very short time. i would favor the mg
explanation.
[2024-06-01 11:13] VITALS: BP 151/102
--- NOTE | 2024-06-01 11:37 | CM ---
Reviewed the chart notes and spoke with the patient at the bedside. The patient's friend will transport the patient home. CM continues to be available to patient/family and is monitoring medical plan for needs at discharge.
Plan: Discharge to home today with no additional needs identified.
== END 2024-06-01 12:16 | disposition home or self-care (01) | DRG 897 ==
LOC: 2 NORTH 15:54
PROVIDERS: Student in an Organized Health Care Education/Training Program; ADMITTING PHYSICIAN Internal Medicine; ATTENDING PHYSICIAN Hospitalist; EMERGENCY PHYSICIAN Emergency Medicine; OTHER PHYSICIAN Psychiatry & Neurology Psychiatry
DX: F10.139 Alcohol abuse with withdrawal, unspecified (principal); E87.20 Acidosis, unspecified; I10 Essential (primary) hypertension; F32.A Depression, unspecified; E83.42 Hypomagnesemia; D72.829 Elevated white blood cell count, unspecified; E87.6 Hypokalemia; F41.1 Generalized anxiety disorder; Z96.649 Presence of unspecified artificial hip joint; H53.8 Other visual disturbances; F17.200 Nicotine dependence, unspecified, uncomplicated; R19.7 Diarrhea, unspecified; R25.1 Tremor, unspecified; R74.01 Elevation of levels of liver transaminase levels; Z79.899 Other long term (current) drug therapy; Z81.1 Family history of alcohol abuse and dependence; Z81.8 Family history of other mental and behavioral disorders; Z82.49 Family history of ischemic heart disease and other diseases of the circulatory system
CPT/HCPCS: 70450; 80048; 80053; 80306; 80307; 81003; 82010; 82077; 82977; 83690; 83735; 84100; 85025; 85027; 85610; 87045; 87046; 87324; 87427; 87449; 93005; 96374; 96375; 96376; 97116; 97162; 99284

== ENCOUNTER 2024-06-16 11:49 | Emergency (ER) | payer OTHER, SELFPAY ==
[2024-06-16 11:50] VITALS: BP 161/106
[2024-06-16 12:00] VITALS: BMI 39.0
[2024-06-16 12:08] VITALS: BP 121/82
[2024-06-16 12:18] LABS: % Basophils 0.1 % (0-2); % Eosinophils 0.9 % (0-6); % Immature Granulocytes 0.5 % (0-0.5); % Lymphocytes 19.2 % (20.5-51.1); % Monocytes 3.7 % (1.7-9.3); % Neutrophils 75.6 % (42.2-75.2); Absolute Eosinophils 0.1 10^3/uL (0-0.7); Absolute Immature Granulocytes 0.1 10^3/uL (0-0.05); Absolute Lymphocytes 1.9 10^3/uL (1.2-3.4); Absolute Monocytes 0.4 10^3/uL (0.1-0.6); Absolute Neutrophils 7.6 10^3/uL (1.4-6.5); Hematocrit 39.7 % (37.0-47.0); Hemoglobin 13.6 g/dL (12.0-16.0); Mean Corp Hgb Conc. 34.3 g/dL (33.0-37.0); Mean Corpuscular Hgb 32.1 pg (27.0-31.0); Mean Corpuscular Volume 93.6 fL (81.0-99.0); Mean Platelet Volume 9.6 fL (7.4-10.4); Nucleated Red Blood Cells % 0 %; Platelet Count 396 10^3/uL (130-400); Red Blood Cell Count 4.24 10^6/uL (4.20-5.40); Red Cell Dist. Width 12.9 % (11.5-14.5); White Blood Cell Count 10.1 10^3/uL (4.8-10.8)
[2024-06-16 12:42] LABS: ALT (SGPT) 23 U/L (0-35); AST (SGOT) 34 U/L (14-36); Albumin 4.6 g/dl (3.5-5.0); Alkaline Phosphatase 100 U/L (38-126); Blood Urea Nitrogen 11 mg/dl (7-17); Calcium 10.7 mg/dl (8.4-10.2); Carbon Dioxide 24 mmol/L (22-30); Chloride 103 mmol/L (98-107); Estimated Creatinine Clearance 115 ml/min; Glucose 108 mg/dl (70-99); Potassium 3.9 mmol/L (3.5-5.1); Sodium 140 mmol/L (135-145); Total Bilirubin 0.5 mg/dl (0.2-1.3); Total Protein 7.3 g/dl (6.3-8.2); eGFR > 60.00
[2024-06-16 12:46] LABS: Troponin I < 0.012 ng/ml
[2024-06-16 12:58] VITALS: BP 141/101
[2024-06-16 13:19] VITALS: BP 134/104
--- NOTE | 2024-06-16 13:39 | ED.GENMED ---
History of Present Illness
General
Chief Complaint: Blood Pressure Problem
Source: patient
Exam Limitations: none
Time Seen by Provider: 06/16/24 13:38
Nursing documentation reviewed up to this point in time: agreed with
History of Present Illness
History of Present Illness:
The patient is a 59-year-old female with past medical history of hypertension and chronic alcohol use who reports that she took her blood pressure and found it to be elevated today after taking her nifedipine. Patient reports that she was not sure
if she actually took the nifedipine or not, because she reports that the pill could have fallen on the floor. The patient reports that she then took a second dose of the nifedipine. Shortly after taking the nifedipine, she reports her blood
pressure was still elevated and she felt lightheaded. Patient reports that she grew concerned and when she could not get in touch with her doctor, she decided to come to the emergency department. Patient reports that her nifedipine was recently
increased from 60 to 90 mg. Patient denies chest pain, shortness of breath, vision changes, weakness and numbness. She reports she feels better now.
Past History
Past History
ED Past Medical History: HTN, Psychiatric and Other (Alcoholism)
ED Past Surgical History: Other (parathyroidectomy)
Social History
Tobacco: Smoker
Alcohol: Binge drinker
Drug: None
Personal:
Living: other
Employment: Employed
Family History
Family History: Other (Father with TIA and hypertension)
Review of Systems
Review of Systems
Allergies reviewed?: Yes
All Other Systems: ROS reviewed and negative except as documented in HPI and ROS
Constitutional: Reports no symptoms
EENT: Reports no symptoms
Respiratory: Reports no symptoms
Cardiac: Reports other (Lightheaded)
ABD/GI: Reports no symptoms
: Reports no symptoms
Musculoskeletal: Reports no symptoms
Skin: Reports no symptoms
Neurological: Reports no symptoms
Endocrine: Reports no symptoms
Hematologic/Lymphatic: Reports no symptoms
Psychiatric: Reports no symptoms
Phy Exam
Physical Exam
Physical Exam:
Physical Exam
General: no apparent distress, not acutely ill
Neck: supple. no meningeal signs. normal psoterior pharynx
Heart: s1/s2 regular rate and rhythm, no murmur. equal radial pulses.
Lungs: no acute respiratory distress. clear bilaterally
Abdomen: normal bowel sounds. not tender. no CVAT
Neuro: alert and orientedx3. no focal neurological deficits, visual borden intact. Cranial nerves equal and symmetric bilaterally. Steady gait with cane
Skin: no rash
Psychiatric: well kept. interactive and cooperative
Extremities: no edema. no calf tenderness. negative homans. good distal pulses
Course
Orders/Labs/Results
Orders:
Orders
06/16/24 11:55
ECG [Electrocardiogram (*1)] Urgent
Reason for Study: Hypertension, Benign
EKG- Treatment ONCE
06/16/24 12:10
CMP [Comprehensive Metabolic Panel] Urgent
Complete Blood Count/With Diff Urgent
Troponin I Urgent
06/16/24 13:22
Urinalysis Reflex To Culture Urgent
Date Specimen was Collected: 06/16/24
Time Specimen was Collected: 13:21
Abnormal Lab Results
06/16/24
12:10
MCH 32.1 H pg
(27.0-31.0)
Abs Immat Gran (auto) 0.1 H 10^3/uL
(0-0.05)
Absolute Neuts (auto) 7.6 H 10^3/uL
(1.4-6.5)
Neutrophils % 75.6 H %
(42.2-75.2)
Lymphocytes % 19.2 L %
(20.5-51.1)
Glucose 108 H mg/dl
(70-99)
Calcium 10.7 H mg/dl
(8.4-10.2)
06/16/24 12:10
06/16/24 12:10
Vital Signs
Initial and Last Documented VS:
Initial Vital Signs
Temp Pulse Resp BP Pulse Ox
98.9 F 85 20 161/106 98
06/16/24 11:50 06/16/24 11:50 06/16/24 11:50 06/16/24 11:50 06/16/24 11:50
Last Documented Vital Signs
Temp Pulse Resp BP Pulse Ox
98.9 F 74 20 134/104 98
06/16/24 11:50 06/16/24 13:17 06/16/24 11:50 06/16/24 13:19 06/16/24 11:50
MDM/Problems Addressed
Differential Diagnosis Includes:
Hypertensive urgency, hypertensive emergency
MDM/Problems Addressed:
Patient presents with acute on chronic hypertension
Chronic conditions affecting care: HTN
Acute Exacerbation and/or Progression of Chronic Illness:
Patient is acutely hypertensive which represents progression of chronic hypertension
Acute Exacerbation and/or Progression of Chronic Illness: HTN
*Pulse Oximetry
Patient hypoxic: no
*EKG
Interpreted by ED Provider?: Yes
Interpretation: abnormal
Comparison EKG: no changes
Rate: normal
Rhythm: sinus
[place]: left axis deviation
Interval: normal interval
QRS Pattern: normal QRS
Ischemia: non-specific ST changes
*Crematorium Operator Interpretation
Rate: normal
Interpretation: normal
Rhythm: sinus
*Critical Care Note
Total Time (30-74mins, 75-104mins- exclusive of procedures): Not Applicable
Data Reviewed
Review of Other/Old Records Reveals: Discharge Summary (Discharge summary reviewed from 2 weeks ago when patient was admitted for alcohol withdrawal)
Source: patient
Patient Management
Social determinants of health affecting care: Living situation and Strong social support
Escalation/DeEscalation of care consider admission/obs:
Patient remains very well and comfortable appearing. Her neurological exam is normal and there is no sign of stroke. Patient describes dizziness that was more related to lightheadedness rather than any balance issues. Therefore, I do not think a
CT head is helpful. Patient's blood pressure has improved and she is instructed to follow-up with her primary care doctor. Patient has no chest pain or EKG changes.
ED Attending Note
-
Portions of this chart may have been created with voice recognition software.� Occasional wrong word or��sound alike� substitutions may have occurred due to the inherent limitations of voice recognition software.
Discharge Plan
Departure
Patient Disposition: Home (Routine Discharge)
Date of Disposition: 06/16/24
Time of Disposition: 14:01
Patient with high blood pressure during this ER visit?: Yes
Condition: Good
Covid-19: Not Applicable
Discharge Problem:
HTN (hypertension)
Instructions: High Blood Pressure (DC), BLOOD PRESSURE
Prescriptions:
No Action
acetaminophen [Tylenol Extra Strength] 500 mg Tablet
1,000 mg PO Q6HPRN PRN (Reason: mild pain)
folic acid 1 mg Tablet
1 mg PO DAILY Qty: 30 0RF
gabapentin [Neurontin] 100 mg capsule
100 mg PO TID Qty: 90 0RF
nifedipine 90 mg tablet extended release
90 mg PO DAILY Qty: 30 0RF
thiamine HCl (vitamin B1) 100 mg tablet
100 mg PO DAILY Qty: 30 0RF
escitalopram oxalate 5 mg Tablet
5 mg PO DAILY Qty: 30 0RF
Referrals:
Sandra Patton MD [Family Provider] -
Activity Restrictions/Additional Instructions:
Please call and follow-up with Dr. Liam Martinez within 1 week to have your blood pressure reevaluated.
Interventions
Interventions:
*Risk Screen - Suicide Last Done: 06/16/24 11:50
*General Assessment Last Done: 06/16/24 11:50
*Neglect/Abuse Screening Last Done: 06/16/24 11:50
ED- Fall Risk Assessment Last Done: 06/16/24 12:00
*ED COVID-19 Vaccine History Last Done: 06/16/24 12:00
*Nursing Disposition Last Done: 06/16/24 14:09
ED- Cardiac Assessment Last Done: 06/16/24 12:00
ED- Neurological Assessment Last Done: 06/16/24 12:00
ED- Pulmonary Assessment Last Done: 06/16/24 12:00
Discharge Date and Time
Print Language: BARBADIAN
[2024-06-16 13:45] LABS: Urine Albumin Negative (Neg - Trace); Urine Bilirubin Negative (Negative); Urine Character Clear (Clear); Urine Color Yellow; Urine Glucose Negative (Negative); Urine Ketone Negative (Negative); Urine Leukocyte Negative (Negative); Urine Nitrite Negative (Negative); Urine Occult Blood Negative (Negative); Urine Urobilinogen Negative (Neg - 1+)
== END 2024-06-16 14:09 | disposition home or self-care (01) ==
LOC: EMR 11:49
PROVIDERS: Emergency Medicine; Physician Assistant; EMERGENCY PHYSICIAN Emergency Medicine; FAMILY PHYSICIAN Obstetrics & Gynecology Gynecology
DX: I10 Essential (primary) hypertension (principal); F17.200 Nicotine dependence, unspecified, uncomplicated
CPT/HCPCS: 99284; 80053; 81003; 84484; 85025; 93005

== ENCOUNTER → 2024-08-31 10:59 | Outpatient (REF) | payer OTHER, SELFPAY | LOC: RAD 10:59 | PROVIDERS: ATTENDING PHYSICIAN Student in an Organized Health Care Education/Training Program | DX: M16.0 Bilateral primary osteoarthritis of hip (principal) | CPT/HCPCS: 73502 ==

== ENCOUNTER 2024-09-06 01:36 | Emergency (ER) | payer OTHER, SELFPAY ==
[2024-09-06 01:38] VITALS: BP 158/100
--- NOTE | 2024-09-06 01:44 | ED.GENMED ---
History of Present Illness
<ABEL Velazco - Last Filed: 09/06/24 05:28>
General
Chief Complaint: Musculo-Skeletal Complaint
Source: patient
Exam Limitations: none
Time Seen by Provider: 09/06/24 01:43
Nursing documentation reviewed up to this point in time: agreed with
History of Present Illness
History of Present Illness:
Pt is a 59 y/o F w/ PMH of HTN, pancreatitis, alcoholic hepatitis, anxiety, depression, parathyroidectomy, breast lift, alcohol use disorder and Right hip replacement who presents today for Left hip pain x a few months. She states the pain is 10/10
and unbearable. Pt notes she was not doing anything in particular when it started. Pt states she took Motrin at 11pm on 09/05/24 and has also been drinking alcohol to alleviate pain. Pt also admits to associates nausea that began 4 days ago and has
been constant. She says she has not taken anything to help the nausea. Pt notes that it is moderate in severity. Pt also admits to vomiting since arrival in ED with 4 episodes. Pt denies recent falls or injury to the L hip, edema, erythema, or joint
deformity of the left hip. Pt also denies DUNCAN, chest pain, dyspnea, palpitations, abdominal pain, hematemesis, changes in urination/bowel habits.
Pt is going next week for a consultation for surgery on her L hip. Pt had XR of L hip on 08/31 showing severe osteoarthrosis.
Past History
<ABEL Velazco - Last Filed: 09/06/24 05:28>
Past History
ED Past Medical History: HTN, Psychiatric and Other (Alcoholism)
ED Past Surgical History: Other (parathyroidectomy)
Social History
Tobacco: Smoker
Alcohol: Binge drinker
Drug: None
Personal:
Living: other
Employment: Employed
Family History
Family History: Other (Father with TIA and hypertension)
Review of Systems
<ABEL Velazco - Last Filed: 09/06/24 05:28>
Review of Systems
Allergies reviewed?: Yes
Constitutional: Reports no symptoms
EENT: Reports no symptoms
Respiratory: Reports no symptoms
Cardiac: Reports no symptoms
ABD/GI: Reports nausea and vomiting
: Reports no symptoms
Musculoskeletal: Reports joint pain (L hip)
Skin: Reports no symptoms
Neurological: Reports no symptoms
Phy Exam
<ABEL Velazco - Last Filed: 09/06/24 05:28>
General Physical Exam
General Presentation: moderate distress
General age: appears stated age
General Skin: warm and diaphoretic
General Habitus: obese and other (smells of EtOH)
General Mental: appears intoxicated (smell of EtOH in room; pt admits to alcohol use)
Cardiovascular Exam
Cardiovascular Exam: regular rate/rhythm
Pulmonary Exam
Pulmonary Exam: lungs clear
Gastrointestinal Exam
Gastrointestinal Exam: normal bowel sounds, soft and non distended
Musculoskeletal Exam
Musculoskeletal Exam: neuro vasc intact and other (pt showing extreme discomfort w/ palpation of L hip joint; refusal of ROM)
Skin Exam
Skin Exam: normal color
Course
<ABEL Velazco - Last Filed: 09/06/24 05:28>
Orders/Labs/Results
Orders:
Orders
09/06/24 02:31
Ketorolac [Toradol] 30 mg IM NOW STA
09/06/24 03:04
Ondansetron Orally Disint [Zofran Odt (Orally Disintegrating)] 4 mg PO NOW STA
09/06/24 03:32
HYDROmorphone [Dilaudid] 0.5 mg IM NOW STA
09/06/24 04:33
Acetaminophen 1000MG/100Ml [Ofirmev] 1,000 mg in 100 ml IV ONCE
Acetaminophen IV Indication:: ED Narcotic History-ONCE
09/06/24 06:08
Tramadol HCl [Ultram] 50 mg PO NOW STA
Vital Signs
Initial and Last Documented VS:
Initial Vital Signs
Temp Pulse Resp BP Pulse Ox
98.7 F 78 22 158/100 100
09/06/24 01:38 09/06/24 01:38 09/06/24 01:38 09/06/24 01:38 09/06/24 01:38
Last Documented Vital Signs
Temp Pulse Resp BP Pulse Ox
98.7 F 74 14 148/90 98
09/06/24 01:38 09/06/24 03:55 09/06/24 03:55 09/06/24 03:55 09/06/24 03:55
<Narayan Laird DO - Last Filed: 09/06/24 06:54>
Orders/Labs/Results
Orders:
Orders
09/06/24 02:31
Ketorolac [Toradol] 30 mg IM NOW STA
09/06/24 03:04
Ondansetron Orally Disint [Zofran Odt (Orally Disintegrating)] 4 mg PO NOW STA
09/06/24 03:32
HYDROmorphone [Dilaudid] 0.5 mg IM NOW STA
09/06/24 04:33
Acetaminophen 1000MG/100Ml [Ofirmev] 1,000 mg in 100 ml IV ONCE
Acetaminophen IV Indication:: ED Narcotic History-ONCE
09/06/24 06:08
Tramadol HCl [Ultram] 50 mg PO NOW STA
Vital Signs
Initial and Last Documented VS:
Initial Vital Signs
Temp Pulse Resp BP Pulse Ox
98.7 F 78 22 158/100 100
09/06/24 01:38 09/06/24 01:38 09/06/24 01:38 09/06/24 01:38 09/06/24 01:38
Last Documented Vital Signs
Temp Pulse Resp BP Pulse Ox
98.7 F 74 14 148/90 98
09/06/24 01:38 09/06/24 03:55 09/06/24 03:55 09/06/24 03:55 09/06/24 03:55
<ABEL Velazco - Last Filed: 09/06/24 05:28>
*Critical Care Note
Total Time (30-74mins, 75-104mins- exclusive of procedures): Not Applicable
<ABEL Velazco - Last Filed: 09/06/24 05:28>
Update Note
Update Note:
09/06/24 AD: Pt states nausea and vomiting has subsided. She believes her initial pain dose of Toradol did not help at all/made it worse, but now thinks the Dilaudid has made her 'loopy' and is not helping the pain. She states she does not want to
start an IV, but is requesting something different for the pain. Pt has asked multiple times to be admitted and is concerned about taking medication, and is also concerned about having to go home.
ED Attending Note
<ABEL Velazco - Last Filed: 09/06/24 05:28>
-
Portions of this chart may have been created with voice recognition software.� Occasional wrong word or��sound alike� substitutions may have occurred due to the inherent limitations of voice recognition software.
<Narayan Laird DO - Last Filed: 09/06/24 06:54>
ED Attending Note
Patient seen and examined by attending physician: Yes
I performed the substantive portion of visit, reviewed & personally made and approve the management plan that is documented in note by myself or LAURA.: Yes
ED Attending Note:
59-year-old female presents with acute on chronic left hip pain. Patient has been having left hip pain for the last few months. She states that has been worsening. She is due for hip replacement surgery at an outside hospital. She sees
orthopedics at [facility]. Patient denies any trauma to the hip. Patient had x-rays here at [facility] in the last week. She does not wish to have any further x-rays. Patient was seen in conjunction with the PA student. I have
reviewed and agree with the history and treatment plan presented. On my independent physical exam, patient is awake, alert, and oriented x3 minimal to moderate acute distress. Positive hip rolling test on the left. Tenderness to palpation in the
left lower extremity hip joint. Good distal pulses. Skin is warm and dry.
After multiple doses of pain medication, patient states that tramadol seems to be working. She states that having surgery here is 'out of the question 'as her insurance is capitated to a different hospital. She has an appointment with her
orthopedic surgeon for next week. She does not want to be admitted for pain control at this point. She wishes to be discharged home but she wishes to have some more time to see if the pain medicine will kick in. I will send a prescription for
tramadol. She will follow-up with orthopedics. [facility]
Discharge Plan
Departure
Patient Disposition: Home (Routine Discharge)
Date of Disposition: 09/06/24
Time of Disposition: 06:51
Patient with high blood pressure during this ER visit?: Yes
Discharge Problem:
Chronic hip pain
Instructions: Using Cold for Pain, Hip Pain ED, BLOOD PRESSURE
Prescriptions:
New
tramadol 50 mg tablet
50 mg PO Q6H PRN (Reason: Pain) Qty: 14 0RF
No Action
acetaminophen [Tylenol Extra Strength] 500 mg Tablet
1,000 mg PO Q6HPRN PRN (Reason: mild pain)
folic acid 1 mg Tablet
1 mg PO DAILY Qty: 30 0RF
gabapentin [Neurontin] 100 mg capsule
100 mg PO TID Qty: 90 0RF
nifedipine 90 mg tablet extended release
90 mg PO DAILY Qty: 30 0RF
thiamine HCl (vitamin B1) 100 mg tablet
100 mg PO DAILY Qty: 30 0RF
escitalopram oxalate 5 mg Tablet
5 mg PO DAILY Qty: 30 0RF
Referrals:
Rodrick Daugherty MD [Family Provider] -
Activity Restrictions/Additional Instructions:
As discussed, is very important to follow-up with your orthopedic surgeon to further evaluate this hip.
Your prescriptions were sent to the pharmacy you specified.
It was a pleasure meeting you and taking part in your care. We hope for your continued healing and wellness.
Please read discharge instructions in their entirety. However, they are for general education and may not describe your exact diagnosis at discharge. Information on your ER visit and medical conditions were discussed with you along with appropriate
follow up information...
If indicated, please take your medications as instructed and indicated on discharge paperwork.
Please schedule a follow up appointment as directed. Call to schedule an appointment
Please return to the emergency department with ANY change in, persisting, or worsening of symptoms. If any of your symptoms do not improve, or persist, or become more severe within 6-12 hours, please return to the emergency department for further
care.
Please return to the emergency department if you develop a headache, neck pain/stiffness, fever greater than 100.4F, chest pain, shortness of breath, persistent nausea, vomiting, slurred speech, difficulty walking, numbness/tingling, weakness, signs
of infection or any other symptoms that are worrisome to you.
If you have any questions or concerns please do not hesitate to call the Hospital at
Interventions
Interventions:
*Risk Screen - Suicide Last Done: 09/06/24 01:38
*General Assessment Last Done: 09/06/24 02:10
*Neglect/Abuse Screening Last Done: 09/06/24 01:38
*ED COVID-19 Vaccine History Last Done: 09/06/24 02:10
ED-Musculoskeletal Assessment Last Done: 09/06/24 02:10
Discharge Date and Time
Print Language: JAPANESE
[2024-09-06] MEDS: TORADOL 30 MG IM (02:57)
[2024-09-06 03:55] VITALS: BP 148/90
[2024-09-06] MEDS: DILAUDID 0.5 MG IM (03:55)
[2024-09-06] MEDS: ZOFRAN ODT (ORALLY DISINTEGRATING) 4 MG PO (03:55)
[2024-09-06] MEDS: ULTRAM 50 MG PO (06:27)
--- NOTE | 2024-09-06 07:58 | ED.ADDNOTE ---
ED Addendum
ED Addendum
ED Addendum Note:
I received this patient in signout. I evaluate the patient at bedside at 8 AM. Pain is still not well-controlled. I offered and considered physical therapy consult. She refused to work with physical therapy here. She does not want to stay here
in the hospital. She does not have a surgery set yet but has a consultation coming up soon. Will give an IM dose of Dilaudid at a higher dose of what she had earlier tonight and then also add steroids.
[2024-09-06] MEDS: DELTASONE 50 MG PO (08:37)
[2024-09-06] MEDS: DILAUDID 1 MG IM (08:38)
[2024-09-06 10:00] VITALS: BP 158/97
== END 2024-09-06 10:00 | disposition home or self-care (01) ==
LOC: EMR 01:36
PROVIDERS: EMERGENCY PHYSICIAN Student in an Organized Health Care Education/Training Program; FAMILY PHYSICIAN Family Medicine
DX: G89.29 Other chronic pain (principal); M25.552 Pain in left hip; I10 Essential (primary) hypertension; F41.8 Other specified anxiety disorders; F17.200 Nicotine dependence, unspecified, uncomplicated; Z82.49 Family history of ischemic heart disease and other diseases of the circulatory system; Z87.19 Personal history of other diseases of the digestive system; Z96.641 Presence of right artificial hip joint
CPT/HCPCS: 99283; 96372

== ENCOUNTER 2024-09-20 18:13 | Emergency (ER) | payer OTHER, SELFPAY ==
[2024-09-20 18:18] VITALS: BP 176/112
--- NOTE | 2024-09-20 18:25 | ED.GENMED ---
ED Provider Triage
<Mahin Toledo PA-C - Last Filed: 09/20/24 18:27>
-
Patient seen by provider in Triage?: Seen in Triage
59-year-old female presents with nausea and shakes and vomiting. She thinks she may be in alcohol withdrawal. She has been drinking alcohol to self medicate secondary to significant hip pain. She is due for hip replacement surgery in 1 week. She
was not prescribed any more pain medication so she is decided to self medicate. Last alcoholic beverage was this afternoon. She denies any chest pain or abdominal pain
Patient slightly hypertensive at triage however she has not taking her blood pressure medicine today. Heart rate is normal admits to nausea. Overall nontoxic. Start with labs including CBC CMP lipase as well as alcohol level.
Patient received medical screening exam from healthcare provider at triage. She may need further evaluation and treatment
History of Present Illness
<Mahin Toledo PA-C - Last Filed: 09/20/24 18:27>
General
Chief Complaint: Abdominal Symptoms
Time Seen by Provider: 09/20/24 19:04
<Dave Gale PA-C - Last Filed: 09/21/24 18:17>
History of Present Illness
History of Present Illness:
59-year-old female presents to the emergency department for evaluation of alcohol intoxication. She has severe chronic pain to her left hip and is scheduled for right hip replacement at [facility] on September 27, states she was in
severe pain and her orthopedist has refused to provide her any further opiate pain medications. She states she drank at least a half a bottle of wine. She currently reports chills and feels as though she may be going through alcohol withdrawal.
She had been sober for nearly 1 year prior to this. Denies any SI or HI.
Past History
<Mahin Toledo PA-C - Last Filed: 09/20/24 18:27>
Past History
ED Past Medical History: HTN, Psychiatric and Other (Alcoholism)
ED Past Surgical History: Other (parathyroidectomy)
Social History
Tobacco: Smoker
Alcohol: Binge drinker
Drug: None
Personal:
Living: other
Employment: Employed
Family History
Family History: Other (Father with TIA and hypertension)
Review of Systems
<Dave Gale PA-C - Last Filed: 09/21/24 18:17>
Review of Systems
Allergies reviewed?: Yes
All Other Systems: ROS reviewed and negative except as documented in HPI and ROS
Phy Exam
<Dave Gale PA-C - Last Filed: 09/21/24 18:17>
Physical Exam
Physical Exam:
GEN: Well appearing, NAD, WDWN
HEENT: Oral mucosa moist, no scleral icterus
Cardiac: Regular rate
Lung: No respiratory distress, no tachypnea
MSK: No gross deformity or injuries
Skin: Good color, no pallor or jaundice, no rashes
Neuro: AO x3, moves all extremities freely
Psych: Calm, cooperative
Course
<Mahin Toledo PA-C - Last Filed: 09/20/24 18:27>
Orders/Labs/Results
Orders:
Orders
09/20/24 18:28
Ondansetron Orally Disint [Zofran Odt (Orally Disintegrating)] 4 mg PO NOW STA
09/20/24 18:30
Alcohol Urgent
Complete Blood Count/With Diff Urgent
Comprehensive Metabolic Panel Urgent
Lipase Urgent
09/20/24 19:15
0.9% Sodium Chloride 1000 ml [Nss] 1,000 ml IV BOLUS
Ketorolac [Toradol] 15 mg IV NOW STA
Ondansetron Injectable [Zofran] 4 mg IV NOW STA
09/20/24 20:47
Lorazepam [Ativan] 1 mg IV NOW STA
09/20/24 21:06
Lorazepam [Ativan] 2 mg PO NOW STA
09/21/24 06:47
Ondansetron Orally Disint [Zofran Odt (Orally Disintegrating)] 2 mg PO NOW STA
Ondansetron Orally Disint [Zofran Odt (Orally Disintegrating)] 4 mg .ROUTE .STK-MED ONE
09/21/24 06:48
Ondansetron Orally Disint [Zofran Odt (Orally Disintegrating)] 4 mg PO NOW STA
Abnormal Lab Results
09/20/24
18:30
RBC 4.15 L 10^6/uL
(4.20-5.40)
MCH 31.1 H pg
(27.0-31.0)
Sodium 146 H mmol/L
(135-145)
BUN 21 H mg/dl
(7-17)
Glucose 109 H mg/dl
(70-99)
09/20/24 18:30
09/20/24 18:30
Vital Signs
Initial and Last Documented VS:
Initial Vital Signs
Temp Pulse Resp BP Pulse Ox
99.3 F 85 16 176/112 98
09/20/24 18:18 09/20/24 18:18 09/20/24 18:18 09/20/24 18:18 09/20/24 18:18
Last Documented Vital Signs
Temp Pulse Resp BP Pulse Ox
99.3 F 84 18 167/101 97
09/20/24 18:18 09/20/24 21:12 09/20/24 21:12 09/20/24 21:12 09/20/24 21:12
<Dave Gale PA-C - Last Filed: 09/21/24 18:17>
Orders/Labs/Results
Orders:
Orders
09/20/24 18:28
Ondansetron Orally Disint [Zofran Odt (Orally Disintegrating)] 4 mg PO NOW STA
09/20/24 18:30
Alcohol Urgent
Complete Blood Count/With Diff Urgent
Comprehensive Metabolic Panel Urgent
Lipase Urgent
09/20/24 19:15
0.9% Sodium Chloride 1000 ml [Nss] 1,000 ml IV BOLUS
Ketorolac [Toradol] 15 mg IV NOW STA
Ondansetron Injectable [Zofran] 4 mg IV NOW STA
09/20/24 20:47
Lorazepam [Ativan] 1 mg IV NOW STA
09/20/24 21:06
Lorazepam [Ativan] 2 mg PO NOW STA
09/21/24 06:47
Ondansetron Orally Disint [Zofran Odt (Orally Disintegrating)] 2 mg PO NOW STA
Ondansetron Orally Disint [Zofran Odt (Orally Disintegrating)] 4 mg .ROUTE .STK-MED ONE
09/21/24 06:48
Ondansetron Orally Disint [Zofran Odt (Orally Disintegrating)] 4 mg PO NOW STA
Abnormal Lab Results
09/20/24
18:30
RBC 4.15 L 10^6/uL
(4.20-5.40)
MCH 31.1 H pg
(27.0-31.0)
Sodium 146 H mmol/L
(135-145)
BUN 21 H mg/dl
(7-17)
Glucose 109 H mg/dl
(70-99)
09/20/24 18:30
09/20/24 18:30
Vital Signs
Initial and Last Documented VS:
Initial Vital Signs
Temp Pulse Resp BP Pulse Ox
99.3 F 85 16 176/112 98
09/20/24 18:18 09/20/24 18:18 09/20/24 18:18 09/20/24 18:18 09/20/24 18:18
Last Documented Vital Signs
Temp Pulse Resp BP Pulse Ox
99.3 F 84 18 167/101 97
09/20/24 18:18 09/20/24 21:12 09/20/24 21:12 09/20/24 21:12 09/20/24 21:12
<Dave Gale PA-C - Last Filed: 09/21/24 18:17>
MDM/Problems Addressed
MDM/Problems Addressed:
Unfortunately the patient will require prolonged ED observation until sobriety as she has no family members or friends that can transport her out of the ED. She is medically stable and not exhibiting any signs of withdrawal secondary to her being
intoxicated. In regards to the hip pain she is scheduled for a replacement surgery in 1 week and is not advised her to be taking opioids in anticipation of the surgery as it will complicate her recovery process. She asked on several occasions to
receive IV opioids which I declined. I did give her a dose of Ativan for anxiety purposes as she was quite agitated throughout emergency department stay. Will sign out to rib chopper provider for further observation until sobriety
<Dave Gale PA-C - Last Filed: 09/21/24 18:17>
*Critical Care Note
Total Time (30-74mins, 75-104mins- exclusive of procedures): Not Applicable
ED Attending Note
<Mahin Toledo PA-C - Last Filed: 09/20/24 18:27>
-
Portions of this chart may have been created with voice recognition software.� Occasional wrong word or��sound alike� substitutions may have occurred due to the inherent limitations of voice recognition software.
Discharge Plan
Departure
Patient Disposition: Home (Routine Discharge)
Date of Disposition: 09/21/24
Time of Disposition: 05:04
Patient with high blood pressure during this ER visit?: No
Discharge Problem:
Alcohol intoxication, Chronic left hip pain
Instructions: Chronic pain
Prescriptions:
No Action
acetaminophen [Tylenol Extra Strength] 500 mg Tablet
1,000 mg PO Q6HPRN PRN (Reason: mild pain)
folic acid 1 mg Tablet
1 mg PO DAILY Qty: 30 0RF
gabapentin [Neurontin] 100 mg capsule
100 mg PO TID Qty: 90 0RF
nifedipine 90 mg tablet extended release
90 mg PO DAILY Qty: 30 0RF
thiamine HCl (vitamin B1) 100 mg tablet
100 mg PO DAILY Qty: 30 0RF
escitalopram oxalate 5 mg Tablet
5 mg PO DAILY Qty: 30 0RF
tramadol 50 mg tablet
50 mg PO Q6H PRN (Reason: Pain) Qty: 14 0RF
Referrals:
UNKNOWN - PT DOES,NOT KNOW [Family Provider] -
Interventions
Interventions:
*Risk Screen - Suicide Last Done: 09/20/24 18:18
*General Assessment Last Done: 09/20/24 18:18
*Neglect/Abuse Screening Last Done: 09/20/24 18:18
ED- Fall Risk Assessment Last Done: 09/20/24 19:06
*ED COVID-19 Vaccine History Last Done: 09/20/24 18:18
*Nursing Disposition Last Done: 09/21/24 06:56
PQ-[id number] Assessment Last Done: 09/20/24 19:06
Discharge Date and Time
Discharge Date/Time: 09/21/24 06:57
Print Language: MAORI
[2024-09-20] MEDS: ZOFRAN ODT (ORALLY DISINTEGRATING) 4 MG PO (18:35)
[2024-09-20 18:38] LABS: % Basophils 0.6 % (0-2); % Immature Granulocytes 0.4 % (0-0.5); % Lymphocytes 30.9 % (20.5-51.1); % Monocytes 4.2 % (1.7-9.3); % Neutrophils 63.9 % (42.2-75.2); Absolute Lymphocytes 1.7 10^3/uL (1.2-3.4); Absolute Monocytes 0.2 10^3/uL (0.1-0.6); Absolute Neutrophils 3.5 10^3/uL (1.4-6.5); Hematocrit 37.5 % (37.0-47.0); Hemoglobin 12.9 g/dL (12.0-16.0); Mean Corp Hgb Conc. 34.4 g/dL (33.0-37.0); Mean Corpuscular Hgb 31.1 pg (27.0-31.0); Mean Corpuscular Volume 90.4 fL (81.0-99.0); Mean Platelet Volume 8.8 fL (7.4-10.4); Nucleated Red Blood Cells % 0 %; Platelet Count 349 10^3/uL (130-400); Red Blood Cell Count 4.15 10^6/uL (4.20-5.40); Red Cell Dist. Width 13.1 % (11.5-14.5); White Blood Cell Count 5.4 10^3/uL (4.8-10.8)
[2024-09-20 18:56] LABS: ALT (SGPT) 18 U/L (0-35); AST (SGOT) 27 U/L (14-36); Albumin 4.4 g/dl (3.5-5.0); Alcohol 279 mg/dl; Alkaline Phosphatase 78 U/L (38-126); Blood Urea Nitrogen 21 mg/dl (7-17); Calcium 9.2 mg/dl (8.4-10.2); Carbon Dioxide 29 mmol/L (22-30); Chloride 103 mmol/L (98-107); Glucose 109 mg/dl (70-99); Lipase 52 U/L (23-300); Potassium 3.7 mmol/L (3.5-5.1); Sodium 146 mmol/L (135-145); Total Bilirubin 0.4 mg/dl (0.2-1.3); Total Protein 6.9 g/dl (6.3-8.2); eGFR > 60.00
[2024-09-20] MEDS: TORADOL 15 MG IV (19:37)
[2024-09-20] MEDS: ZOFRAN 4 MG IV (19:38)
[2024-09-20] MEDS: NSS 1000 IV (19:38)
[2024-09-20 21:12] VITALS: BP 167/101
[2024-09-20] MEDS: ATIVAN 2 MG PO (22:16)
[2024-09-21] MEDS: ZOFRAN ODT (ORALLY DISINTEGRATING) 4 MG PO (06:49)
== END 2024-09-21 06:57 | disposition home or self-care (01) ==
LOC: EMR 18:13
PROVIDERS: Physician Assistant; EMERGENCY PHYSICIAN Emergency Medicine
DX: F10.129 Alcohol abuse with intoxication, unspecified (principal); Y90.8 Blood alcohol level of 240 mg/100 ml or more; M25.552 Pain in left hip; G89.29 Other chronic pain; I10 Essential (primary) hypertension; F17.200 Nicotine dependence, unspecified, uncomplicated
CPT/HCPCS: 96374; 96375; 96361; 99284; 80053; 82077; 83690; 85025

== ENCOUNTER → 2024-12-08 10:28 | Outpatient (REF) | payer OTHER, SELFPAY | LOC: RAD 10:28 | PROVIDERS: ATTENDING PHYSICIAN Orthopaedic Surgery; FAMILY PHYSICIAN Family Medicine | DX: Z96.642 Presence of left artificial hip joint (principal); M25.561 Pain in right knee | CPT/HCPCS: 73502; 73564 ==

== ENCOUNTER 2025-04-08 09:11 | Inpatient (IN) | payer OTHER, SELFPAY ==
[2025-04-08] VITALS (19 sets, daily range): BP systolic 120–188; BP diastolic 84–139; BMI 37.2
[2025-04-08] MEDS: ATIVAN 2 MG IV (06:29)
--- NOTE | 2025-04-08 06:32 | ED.GENMED ---
Addendum entered and electronically signed by Cheko Schaeffer DO 04/08/25 09:26:
Update chest x-ray noted NAD to my preliminary review formal report pending
Original Note:
History of Present Illness
General
Chief Complaint: Dizziness
Source: patient and records
Exam Limitations: none
Time Seen by Provider: 04/08/25 06:12
Nursing documentation reviewed up to this point in time: agreed with
History of Present Illness
History of Present Illness:
60-year-old female hypertensive, presents with a binge drinker, has been off her hypertensive meds for a few months states it went working, no alcohol for for 5 days was previously drinking a bottle of wine a day presents with dizziness headache
shakiness nausea chest pain anxiety she also had a tick on her arm states she was gardening recently
Past History
Past History
ED Past Medical History: HTN, Psychiatric and Other (Alcoholism)
ED Past Surgical History: Other (parathyroidectomy)
Social History
Tobacco: Smoker
Alcohol: Binge drinker
Drug: None
Personal:
Living: with family
Employment: Employed
Family History
Family History: Other (Father with TIA and hypertension)
Review of Systems
Review of Systems
All Other Systems: Not applicable
Respiratory: Reports no symptoms
Cardiac: Reports chest pain and palpitations
ABD/GI: Reports nausea
Musculoskeletal: Denies joint pain
Skin: Reports no symptoms
Neurological: Reports dizzy and headache
Endocrine: Reports no symptoms
Hematologic/Lymphatic: Reports no symptoms
Psychiatric: Reports anxiety; Denies hallucinations
Phy Exam
Physical Exam
Physical Exam:
Physical Exam
General: Tremulous anxious hypertensive
Neck: Dry lips, no tongue bite
Heart: Tachycardic
Lungs: no acute respiratory distress. clear bilaterally
Abdomen: Nontender
Neuro: alert and oriented. no focal neurological deficits
Skin: no rash
Psychiatric: well kept. interactive and cooperative
Extremities: no edema. no calf tenderness. negative homans. good distal pulses
Course
Orders/Labs/Results
Orders:
Orders
04/08/25 06:08
ECG [Electrocardiogram (*1)] Urgent
Reason for Study: Chest Pain
EKG- Treatment ONCE
04/08/25 06:22
Lorazepam [Ativan] 2 mg IV NOW STA
04/08/25 06:26
Alcohol Urgent
Complete Blood Count/With Diff Urgent
Comprehensive Metabolic Panel Urgent
Lipase Urgent
Lyme Progressive Urgent
Comment: ADD ON
Magnesium Urgent
Manual Differential Urgent
TSH Urgent
Troponin I Urgent
04/08/25 06:47
Add On- LAB Urgent
Tests Added?: lyme
04/08/25 07:00
0.9% Sodium Chloride 1000 ml [Nss] 1,000 ml Mvi, Adult [Multivitamin] 10 ml Thiamine Injection 100 mg Magnesium Sulfate 2 grams IV 200 mls/hr
04/08/25 07:24
Acetaminophen [Tylenol] 1,000 mg PO NOW STA
Potassium Chloride [KCl] 40 meq PO NOW STA
04/08/25 08:05
HydrALAZINE [Apresoline] 5 mg IV NOW STA
Abnormal Lab Results
04/08/25
06:26
WBC 19.2 H 10^3/uL
(4.8-10.8)
RBC 5.61 H 10^6/uL
(4.20-5.40)
Hgb 17.0 H g/dL
(12.0-16.0)
Hct 48.1 H %
(37.0-47.0)
Plt Count 408 H 10^3/uL
(130-400)
Abs Neuts (Manual) 17.2 H 10^3/uL
(1.4-6.5)
Segmented Neutrophils 90 H %
(42-75)
Lymphocytes (Manual) 6 L %
(20-51)
Potassium 3.3 L mmol/L
(3.5-5.1)
Carbon Dioxide 16 L mmol/L
(22-30)
Glucose 207 H mg/dl
(70-99)
Magnesium 1.4 L mg/dl
(1.6-2.3)
Total Bilirubin 2.3 H mg/dl
(0.2-1.3)
AST 56 H U/L
(14-36)
ALT 38 H U/L
(0-35)
Alkaline Phosphatase 133 H U/L
(38-126)
Total Protein 8.3 H g/dl
(6.3-8.2)
Albumin 5.2 H g/dl
(3.5-5.0)
TSH 5.42 H uIU/ml
(0.47-4.68)
04/08/25 06:26
04/08/25 06:26
Vital Signs
Initial and Last Documented VS:
Initial Vital Signs
Temp Pulse Resp Pulse Ox
98.1 F 105 26 97
04/08/25 06:11 04/08/25 06:11 04/08/25 06:11 04/08/25 06:11
Last Documented Vital Signs
Temp Pulse Resp BP Pulse Ox
98.1 F 94 26 182/139 93
04/08/25 06:11 04/08/25 06:45 04/08/25 06:45 04/08/25 06:19 04/08/25 06:45
MDM/Problems Addressed
Differential Diagnosis Includes:
Alcohol withdrawal hypertensive urgency electrolyte abnormality
MDM/Problems Addressed:
Tachycardia anxious
Chronic conditions affecting care: HTN and Psychiatric illness
Acute Exacerbation and/or Progression of Chronic Illness: HTN and Psychiatric illness
*Pulse Oximetry
SaO2: 97
Oxygen Mode of Delivery: Room air
Patient hypoxic: no
*EKG
Interpreted by ED Provider?: Yes
Interpretation: abnormal
Comparison EKG: no comparison EKG present
Heart Rate: 118
Rate: tachycardiac
Rhythm: sinus
Ischemia: non-specific ST changes
*Preschool Associate Teacher Interpretation
Rate: tachycardiac
Interpretation: abnormal
Heart Rate: 118
Rhythm: sinus
*Critical Care Note
Total Time (30-74mins, 75-104mins- exclusive of procedures): 30
Data Reviewed
Review of Other/Old Records Reveals: Labs and Discharge Summary
Source: patient and records
Further Testing Considered But Not Given:
CT of the head
Update Note
Update Note:
Suspect alcohol withdrawal plus minus noncompliance with her hypertensive meds, old records briefly reviewed history of the same will try some benzodiazepines, thiamine folate check magnesium follow closely
8 AM
Patient resting comfortably, labs noted electrolytes are being repleted fluids have been ordered at this point I believe patient suffering from alcohol withdrawal impending DTs hypertensive urgency
ED Attending Note
-
Portions of this chart may have been created with voice recognition software.� Occasional wrong word or��sound alike� substitutions may have occurred due to the inherent limitations of voice recognition software.
Discharge Plan
Departure
Patient Disposition: Admit
Date of Disposition: 04/08/25
Time of Disposition: 08:10
Admit to: Telemetry
Presentation/result/management discussed w/ accepting MD/DO: Hospitalist
Patient with high blood pressure during this ER visit?: Yes
Condition: Fair
Discharge Problem:
Alcohol consumption binge drinking, HTN (hypertension), Alcohol abuse with withdrawal, unspecified, Impending DTs
Prescriptions:
No Action
acetaminophen [Tylenol Extra Strength] 500 mg Tablet
1,000 mg PO Q6HPRN PRN (Reason: mild pain)
folic acid 1 mg Tablet
1 mg PO DAILY Qty: 30 0RF
gabapentin [Neurontin] 100 mg capsule
100 mg PO TID Qty: 90 0RF
nifedipine 90 mg tablet extended release
90 mg PO DAILY Qty: 30 0RF
thiamine HCl (vitamin B1) 100 mg tablet
100 mg PO DAILY Qty: 30 0RF
escitalopram oxalate 5 mg Tablet
5 mg PO DAILY Qty: 30 0RF
tramadol 50 mg tablet
50 mg PO Q6H PRN (Reason: Pain) Qty: 14 0RF
Referrals:
Alessandra Jeo MD [Family Provider, Family Practice]
Interventions
Interventions:
*Risk Screen - Suicide Last Done: 04/08/25 06:11
*General Assessment Last Done: 04/08/25 06:20
*Neglect/Abuse Screening Last Done: 04/08/25 06:11
*ED- Fall Risk Assessment Last Done: 04/08/25 06:20
*ED COVID-19 Vaccine History Last Done: 04/08/25 06:20
ED- Cardiac Assessment Last Done: 04/08/25 06:42
ED- Neurological Assessment Last Done: 04/08/25 06:42
ED Swallowing Screen Last Done: 04/08/25 06:42
Discharge Date and Time
Print Language: BARBADIAN
[2025-04-08 06:53] LABS: Hematocrit 48.1 % (37.0-47.0); Mean Corp Hgb Conc. 35.3 g/dL (33.0-37.0); Mean Corpuscular Hgb 30.3 pg (27.0-31.0); Mean Corpuscular Volume 85.7 fL (81.0-99.0); Mean Platelet Volume 9.5 fL (7.4-10.4); Platelet Count 408 10^3/uL (130-400); Red Blood Cell Count 5.61 10^6/uL (4.20-5.40); Red Cell Dist. Width 13.4 % (11.5-14.5); White Blood Cell Count 19.2 10^3/uL (4.8-10.8)
[2025-04-08] MEDS: MULTIVITAMIN 1015 MG IV (06:54)
[2025-04-08] MEDS: MULTIVITAMIN 1015 ML IV (06:54)
[2025-04-08] MEDS: MULTIVITAMIN 1015 GRAMS IV (06:54)
[2025-04-08 06:55] LABS: AST (SGOT) 56 U/L (14-36); Albumin 5.2 g/dl (3.5-5.0); Alkaline Phosphatase 133 U/L (38-126); Blood Urea Nitrogen 16 mg/dl (7-17); Calcium 9.7 mg/dl (8.4-10.2); Carbon Dioxide 16 mmol/L (22-30); Chloride 99 mmol/L (98-107); Estimated Creatinine Clearance 94 ml/min; Glucose 207 mg/dl (70-99); Lipase 30 U/L (23-300); Magnesium 1.4 mg/dl (1.6-2.3); Potassium 3.3 mmol/L (3.5-5.1); Sodium 138 mmol/L (135-145); Total Bilirubin 2.3 mg/dl (0.2-1.3); Total Protein 8.3 g/dl (6.3-8.2); eGFR > 60.00
[2025-04-08 06:57] LABS: Alcohol None Detected
[2025-04-08 07:03] LABS: Troponin I < 0.012 ng/ml
[2025-04-08 07:05] LABS: ALT (SGPT) 38 U/L (0-35)
[2025-04-08 07:22] LABS: TSH 5.42 uIU/ml (0.47-4.68)
[2025-04-08] MEDS: KCL 40 MEQ PO (07:33)
[2025-04-08 07:35] LABS: Absolute Neutrophils -Man Diff 17.2 10^3/uL (1.4-6.5); Band Neutrophils 0 % (0-3); Lymphocytes 6 % (20-51); Monocytes 4 % (2-9); Normal RBC Morphology Yes; Platelets Checked Yes; Segmented Neutrophils 90 % (42-75)
[2025-04-08 07:36] LABS: Total Cells Counted 100
--- NOTE | 2025-04-08 08:33 | CON.INTV ---
Consultation
Consultation Request
Date/Time Consultation Requested: 04/08/2025
Date/Time Consultation Performed: 04/08/2025
Requesting Provider: Danilo Gonsales
Performing Provider: Quiana Chakraborty
Reason for Consultation: Alcohol withdrawl
Medical History
-
Chief Complaint: Tremors
History of Present Illness:
Patient is a very pleasant 60-year-old female with history of alcoholism, and hypertension who presents to the hospital with headache shakiness, nausea, tremors and anxiety. Reportedly last drink was a few days ago. Patient noted to be quite
hypertensive in the emergency room and also hemoconcentrated and dehydrated. She received IV fluids, IV vitamins and was admitted to the ICU for further management of alcohol withdrawal. Patient also received IV phenobarbital load in the emergency
room. Account Executive Metalworking consultation was requested for further input.
Medical History
Past Medical History
Past Medical History: Reports Other (As per HPI above)
Past Surgical History: Reports Orthopedic (Bilateral Hip Replacements) and Other (Parathyroidectomy. Breast Implants.)
Social History
Tobacco: Former Smoker
Alcohol: None
Drug: None
Family History
Family History: Hypertension
Allergies / Home Medications
Allergies / Home Medications
Allergies
Allergy/AdvReac Type Severity Reaction Status Date / Time
hydrocodone AdvReac Mild Itching Verified 09/20/24 18:23
Home Medications
�Medication �Instructions �Recorded �Confirmed �Last Taken �Type
acetaminophen 500 mg tablet 1,000 mg PO Q6HPRN PRN mild pain 05/26/24 05/26/24 05/26/24 History
(Tylenol Extra Strength)
escitalopram oxalate 5 mg tablet 5 mg PO DAILY Depression #30 tabs 06/01/24 Unknown Rx
folic acid 1 mg tablet 1 mg PO DAILY #30 tabs 06/01/24 Unknown Rx
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
(Neurontin) #90 caps
nifedipine 90 mg tablet,extended 90 mg PO DAILY Blood pressure #30 06/01/24 Unknown Rx
release tabs
thiamine HCl (vitamin B1) 100 mg 100 mg PO DAILY Supplement #30 tabs 06/01/24 Unknown Rx
tablet
tramadol 50 mg tablet 50 mg PO Q6H PRN Pain #14 tabs 09/06/24 Unknown Rx
Review of Systems
-
Hematologic/Lymphatic: Other (All 14 systems reviewed and negative except as stated above in the history of present illness. Positive for headache)
Vitals / Labs / Diagnostic Testing
Vital Signs
Temp Pulse Resp BP Pulse Ox
98.1 F 94 26 182/139 93
04/08/25 06:11 04/08/25 06:45 04/08/25 06:45 04/08/25 06:19 04/08/25 06:45
Lab Data
04/08/25 06:26
04/08/25 06:26
Diagnostic Testing:
Physical Exam
-
HEENT: Normocephalic and Other (Dry looking oral mucosa)
Cardiovascular: S1/S2
Respiratory: Clear
GI: Soft and Non Distended
Neurology: Awake and Alert
Skin: Warm and Dry
General: Comfortable
Assessment
-
#1. History of alcoholism with concern for withdrawal
- Status post IV phenobarbital load in the emergency room
- Continue IV phenobarbital taper per protocol, additional dosages as needed
- Continue thiamine, folic acid replacement
- Patient still appears somewhat hypovolemic, will start Ringer lactate at 100 mL/h
- Magnesium noted to be low, replaced with 2 g IV, potassium replaced with oral KCl
- VBG reviewed , lactate normal at 1.6. Patient otherwise afebrile
- WBC count elevated at 19.2 however patient appears quite hemoconcentrated, hemoglobin up to 17 from 12.9 about 6 months ago.
#2. Headache, right side predominantly with nausea,? Migraine
- No visual symptoms reported
- In view of severe headache, stat CT was pursued which was negative for any intracranial hemorrhage
- Toradol 30 mg given without benefit, switched over to morphine 4 mg x 1
#3. Hypertensive urgency
- Pain control, alcohol withdrawal symptom management
- Patient started on amlodipine, add as needed labetalol, titrate as needed.
Other medical diagnoses:
- Generalized anxiety disorder
- Prior history of admissions for alcohol withdrawal
- Mildly abnormal LFTs. INR 1.18
DVT prophylaxis with subcu Lovenox
Critical Care time 65 mins -- The patient is admitted for acute critical illness for the treatment of vital organ failure and/or prevention of further life-threatening conditions. Total care includes time spent in review of history, physical exam,
medications, hemodynamic/ventilator parameters, laboratory data, imaging and discussion with house staff, pharmacy, respiratory therapy, manager van, and nursing.
Data:
ECHO 10/2022: Mildly reduced left ventricular systolic function. Left ventricular ejection
fraction is 51% by Car's method.
Mid and basal inferior rice appear hypokinetic.
Mild aortic stenosis.
No prior study available for comparison.
[2025-04-08] MEDS: APRESOLINE 5 MG IV (08:56)
--- NOTE | 2025-04-08 09:03 | CM ---
Patient seen at bedside in ED. Per Hospitalist patient for admission INP, concern re alcohol. CM spoke with patient and she indicated that she lives in a split level home that she owns and rents out rooms. Patient home has 5 steps to each level and
10 total to bedroom. Patient PCP is [facility] medicine Dr. Joe and she uses the [facility] [address]. Patient has 2 walkers and one cane. Patient stated that she has gone to rehab x2 and has been using on line AA due to not having a car.
Patient is thinking about talking to [facility] but is reluctant to do so due to prior rehab experience. Patient sensitive about 'judgement'. CM reviewed possible help from [facility]. Patient may benefit from PT/OT assessment. CM will continue to
follow for discharge planning needs.
PLan; request [facility] pending patient agreement; watch for medical treatment plan
--- NOTE | 2025-04-08 09:04 | HPS.HSE ---
Family Physician
-
Family Physician: Alessandra Joe
Chief Complaint
-
Dizziness, Tremors, Headache
History of Present Illness
60-year-old female with past medical history of alcoholism (binge drinking), 'a mild heart attack,' hypertension (has not been taking her hypertension medications for a few months) and suspected mood disorder presented with chills, dizziness,
headache, shakiness, nausea, chest pain and anxiety, last alcohol drink was a few days ago. She also reported dysuria, but no fever. She also reported not knowing about a tick bite on her right shoulder, she does frequent gardening. She denied any
abdominal pain or new skin rash.
Medical History
Past Medical History
Past Medical History: Reports Other (As per HPI above)
Past Surgical History: Reports Orthopedic (Bilateral Hip Replacements) and Other (Parathyroidectomy. Breast Implants.)
Social History
Tobacco: Former Smoker
Alcohol: None
Drug: None
Family History
Family History: Hypertension
Allergies / Home Medications
Allergies reflects when Allergies were last updated in [facility].
Home Medications with original date entered in [facility]
Allergy/Medication List:
Allergies
Allergy/AdvReac Type Severity Reaction Status Date / Time
hydrocodone AdvReac Mild Itching Verified 09/20/24 18:23
Home Medications
acetaminophen 500 mg tablet (Tylenol Extra Strength) 1,000 mg PO Q6HPRN PRN mild pain 05/26/24
escitalopram oxalate 5 mg tablet 5 mg PO DAILY Depression #30 tabs 06/01/24
folic acid 1 mg tablet 1 mg PO DAILY #30 tabs 06/01/24
gabapentin 100 mg capsule (Neurontin) 100 mg PO TID alcohol neuropathy #90 caps 06/01/24
nifedipine 90 mg tablet,extended release 90 mg PO DAILY Blood pressure #30 tabs 06/01/24
thiamine HCl (vitamin B1) 100 mg tablet 100 mg PO DAILY Supplement #30 tabs 06/01/24
tramadol 50 mg tablet 50 mg PO Q6H PRN Pain #14 tabs 09/06/24
Review of Systems
-
A 12 point ROS was completed and negative except as noted: Yes
Physical Exam
Vital Signs
Vital Signs
Temp Pulse Resp BP Pulse Ox
98.1 F 109 24 187/133 94
04/08/25 06:11 04/08/25 08:56 04/08/25 08:30 04/08/25 08:56 04/08/25 07:45
Physical Exam
General: Appears in Distress
HEENT: NormoCephalic and Atraumatic
Respiratory: Clear
Cardiac: S1/S2 and Tachycardia
GI: Soft, Non Tender and Normal Bowel Sounds
Musculoskeletal: No Cyanosis
Skin: Warm and Dry
Neuro: Awake, Alert, AO x 3 and Tremors
Psych: Calm and Intact Judgment/Insight
Laboratory Results
-
04/08/25 06:26
04/08/25 06:26
Laboratory Results
Total Bilirubin 2.3 mg/dl (0.2-1.3) H 04/08/25 06:26
AST 56 U/L (14-36) H 04/08/25 06:26
ALT 38 U/L (0-35) H 04/08/25 06:26
Alkaline Phosphatase 133 U/L (38-126) H 04/08/25 06:26
Troponin I < 0.012 ng/ml 04/08/25 06:26
Lipase 30 U/L (23-300) 04/08/25 06:26
Impression/Plan
-
Assessment/Plan
Presentation with chills, dizziness, headache, shakiness, nausea, chest pain and anxiety
Significant Alcoholism -- Binge Drinking
-High risk for DTs
-Patient was not able to give a complete history in the ER due to feeling uncomfortable, but seems last drink was a few days ago
-Start alcohol withdrawal protocol with: phenobarb taper, appropriate vitamins, MSAS monitoring. Hold off on prn Ativan now since getting Phenobarb
-Monitor in the ICU
-Parts Sales Counterperson consulted, appreciate their evaluation and recommendations
Chest Pain
'Mild Heart Attack' in the past as per patient -- no history of CAD, Heart Surgery (according to the patient)
-Patient stated that she was supposed to see car mechanic Dr. Matthew outpatient at [place]
-EKG with nonspecific changes
-Trend troponins
-Could all just be from alcohol withdrawal, tachycardia, anxiety
Leukocytosis
Dysuria
Tick Bite (Tick taken off in the ER from patient's right shoulder -- no Target Rash present)
-Could from stress/leukemoid reaction, but patient also reported Tick Bite (Tick was taken off in the ER per my conversation with Dr. Schaeffer on 04/08/25) and also dysuria
-Doxycycline 200 mg PO one-time dose for prophylaxis
-Check urinalysis with reflex to culture to see whether this is an actual UTI
Prolonged QTc
-Need to be careful to avoid QTc-prolonging medications
Hypertension (has not been taking her hypertension medications for a few months)
Hypertensive Urgency
-Not compliant with home antihypertensives
-Antihypertensives given in the ER
-Suspect that with Phenobarb, blood pressure should also come down
-Patient's home Nifedipine has an interaction with Phenobarb (decreased effectiveness while patient is on Phenobarb) -- holding home Nifedipine for now -- can resume if BP still high after meds that have already been given
-Low sodium diet
Suspected mood disorder
-Holding Lexapro for now given QTc
DVT Prophylaxis: Lovenox
Code Status: Full Code
Severe alcohol withdrawal with high risk of Delirium Tremens is a high risk encounter.
[2025-04-08] MEDS: PHENOBARBITAL 104 MG IV (09:27)
[2025-04-08] MEDS: FOLVITE 1 MG PO (09:38)
[2025-04-08] MEDS: VIBRAMYCIN 200 MG PO (09:38)
[2025-04-08] MEDS: TYLENOL 1000 MG PO (09:41)
--- NOTE | 2025-04-08 10:31 | PTCARENOTE ---
Addendum entered by Shala Ash RN 04/08/25 10:34:
Informed Dr Schaeffer that patient could not take tylenol. Continued to monitor. If patient left undisturbed patient appeared to be sleeping. Patient then seen by hospitalist. Patient medicated for elevated blood pressure with hydralazine. The
hospitalist ordered phenobarbital for alcohol withdraw. This nurse called to pharmacy for medication, received it from pharmacy intern who brought it to the department and then administered it.
Original Note:
Patient complaining of headache.Attempted to medicated patient with tylenol at 0815 but patient stated that she forgot that she took tylenol at 0500. Patient not due for ativan or msas at this time.
[2025-04-08] MEDS: TORADOL 30 MG IV (11:37)
[2025-04-08] MEDS: NORVASC 5 MG PO (11:37)
[2025-04-08 12:00] LABS: Phosphorus 4.4 mg/dl (2.5-4.5)
[2025-04-08 12:06] LABS: Venous Blood Gas B.E. -7.2 mmol/L (-4 to +4); Venous Blood Gas HCO3 16.1 mmol/L (22-27); Venous Blood Gas O2 Sat % 87.7 %; Venous Blood Gas pCO2 26 mmHg (35-48); Venous Blood Gas pO2 55 mmHg (30-50)
[2025-04-08 12:17] LABS: INR 1.18; Lactic Acid 1.9 mmol/L (0.7-2.0); PT 15.3 Sec (11.4-14.6)
[2025-04-08 12:18] LABS: APTT 27.1 Sec (23.4-35.0)
[2025-04-08 12:44] LABS: Troponin I < 0.012 ng/ml
--- NOTE | 2025-04-08 13:09 | PTCARENOTE ---
CT head done results pending
[2025-04-08] MEDS: MORPHINE SULFATE 4 MG IV (14:22)
[2025-04-08] MEDS: TIGAN 200 MG IM (14:30)
--- NOTE | 2025-04-08 14:50 | PTCARENOTE ---
Admission note
Svetlana Gonzalez 60 year-old female admitted at 10:30 from ED with severe alcohol withdrawal. Patient arrived on a unit via billet header, on continue telemetry monitoring.
- Patient awake and orient to person, place, ant time. Complaints of severe 10 out 10 aching, throbbing like continue headache, specifically front of head. patient states she never have had headache as such in before. In addition, she complaints of
nausea. Reports of vomiting a few time at home. MSAS 5
- Sinus Tachycardia 104; BP via left upper arm: 175/118; MAP 107; pedal pulses present no edema
- Lungs diminished, no cough, No SOB
-Abdomen soft non-tender, complaint of nausea, no vomiting since admission
-Voiding in a urinal clear yellow urine denies dysuria
-CT head secondary to c/o headache done.
-Morphine 4 mg IV one time dose administered for headache. Tigen for nausea. patient on phenobarb
[2025-04-08] MEDS: THIAMINE INJECTION 200 MG IV ×2 (16:07→23:05)
[2025-04-08] MEDS: NEURONTIN 100 MG PO ×2 (16:07→21:08)
[2025-04-08] MEDS: PHENOBARBITAL 97.5 MG IV ×2 (16:08→21:08)
[2025-04-08] MEDS: LOVENOX 40 MG SC (16:08)
[2025-04-08] MEDS: LR 1000 IV (16:56)
[2025-04-08] MEDS: MAGNESIUM SULFATE 50 IV (17:01)
[2025-04-08 17:11] LABS: Urine Albumin 4+ (Neg - Trace); Urine Bilirubin Negative (Negative); Urine Character Clear (Clear); Urine Color Yellow; Urine Glucose Negative (Negative); Urine Ketone Negative (Negative); Urine Leukocyte Negative (Negative); Urine Nitrite Negative (Negative); Urine Occult Blood 3+ (Negative); Urine Urobilinogen Negative (Neg - 1+)
[2025-04-08 17:19] LABS: Urine Bacteria Few (Negative)
--- NOTE | 2025-04-08 17:29 | SUR.OPER ---
> patient in bed. Awake and oriented x 3 Headache improved from 10 to 5 pain scale level post Morphine
> ST 113 BP via left upper arm 149/103 MAP 118; denies chest pain; Troponin: 0.012 x 2 ; 3rd troponin collected and send results pending
> On RA Spo2- 95% RA No SOB
> Abdomen soft. Denies nausea at this time. Able to tolerate light meal
> Voiding bedside commode ; denies dysuria. UA send, collected via midstream
> Transfer supervision
Call sequeira with reach
[2025-04-08 17:42] LABS: Troponin I < 0.012 ng/ml
[2025-04-08] MEDS: ATIVAN 1 MG IV ×2 (19:01→22:49)
[2025-04-08] MEDS: NSS (PRESERVATIVE FREE) 0.5 ML IV ×2 (19:02→22:50)
[2025-04-08 19:31] LABS: Glucose - Point of Care 138 mg/dl (70-99)
[2025-04-08] MEDS: TYLENOL 650 MG PO (20:07)
[2025-04-08] MEDS: FLUSH (NSS) 2 FLUSH IV ×2 (21:09→22:51)
--- NOTE | 2025-04-08 21:30 | PTCARENOTE ---
Report received from previous shift RN [id number]. Prior shift RN administered Ativan IV during walking rounds per one time order from . Pt is AAO3, anxious, reports headache without visual disturbances/changes. Following MSAS per protocol. Lung sounds
are clear/decreased throughout, denies cough/SOB, pox 97% on room air. Telemetry rhythm reveals SR-ST, HR 90-100's, no edema present, palpable peripheral pulses noted, pt refusing SCDs. HyperBS, abdomen soft round nontender. Pt denies current
nausea, tolerated 2g Na diet throughout day. Pt has been voiding on bedside commode throughout shift without difficulty, no void thus far in the shift. Skin intact. L AC int with IVF per order. L hand and R AC int's flushed and patent, capped.
Offered CHG bath/HS care, pt declined. Pt agreeable to using oral hygiene swabs. Bed alarm on and monitoring for pt safety, call sequeira within reach. Will monitor closely.
[2025-04-08 23:47] LABS: Troponin I 0.013 ng/ml
[2025-04-09] VITALS (16 sets, daily range): BP systolic 107–161; BP diastolic 70–108; BMI 37.6
--- NOTE | 2025-04-09 01:45 | PTCARENOTE ---
Pt sleeping intermittently when undisturbed. 1x dose Ativan IV administered 2250 for increasing anxiety, good effect. No other change in pt assessment. Will monitor closely.
[2025-04-09] MEDS: LR 1000 IV (02:51)
[2025-04-09 04:43] LABS: % Basophils 0.2 % (0-2); % Eosinophils 1.1 % (0-6); % Immature Granulocytes 0.2 % (0-0.5); % Lymphocytes 30.9 % (20.5-51.1); % Monocytes 5.7 % (1.7-9.3); % Neutrophils 61.9 % (42.2-75.2); Absolute Eosinophils 0.1 10^3/uL (0-0.7); Absolute Lymphocytes 2.5 10^3/uL (1.2-3.4); Absolute Monocytes 0.5 10^3/uL (0.1-0.6); Absolute Neutrophils 5.1 10^3/uL (1.4-6.5); Hematocrit 38.5 % (37.0-47.0); Hemoglobin 13.4 g/dL (12.0-16.0); Mean Corp Hgb Conc. 34.8 g/dL (33.0-37.0); Mean Corpuscular Hgb 30.7 pg (27.0-31.0); Mean Corpuscular Volume 88.3 fL (81.0-99.0); Mean Platelet Volume 9.8 fL (7.4-10.4); Nucleated Red Blood Cells % 0 %; Platelet Count 268 10^3/uL (130-400); Red Blood Cell Count 4.36 10^6/uL (4.20-5.40); Red Cell Dist. Width 13.6 % (11.5-14.5); White Blood Cell Count 8.2 10^3/uL (4.8-10.8)
--- NOTE | 2025-04-09 04:49 | PTCARENOTE ---
Pt slept well throughout the night post Ativan administration. Continuing MSAS assessment. Assisted pt OOB to BSC, pt voided 500ml dark yellow urine without difficulty. Weight obtained via standing scale. Pt states her headache has resolved, denies
all other complaints. Wiped down pt's back with CHG wipe, pt states she will wait until later in the morning to do full bath. Call sequeira within reach, bed alarm remains on and monitoring for safety.
[2025-04-09 05:03] LABS: ALT (SGPT) 19 U/L (0-35); AST (SGOT) 29 U/L (14-36); Albumin 3.7 g/dl (3.5-5.0); Alkaline Phosphatase 94 U/L (38-126); Blood Urea Nitrogen 19 mg/dl (7-17); Carbon Dioxide 23 mmol/L (22-30); Chloride 102 mmol/L (98-107); Estimated Creatinine Clearance 83 ml/min; Glucose 107 mg/dl (70-99); Magnesium 2.4 mg/dl (1.6-2.3); Potassium 3.3 mmol/L (3.5-5.1); Sodium 134 mmol/L (135-145); Total Bilirubin 1.6 mg/dl (0.2-1.3); Total Protein 6.1 g/dl (6.3-8.2); eGFR > 60.00
[2025-04-09 05:05] LABS: Troponin I < 0.012 ng/ml
[2025-04-09] MEDS: ATIVAN 1 MG PO ×2 (05:38→21:45)
[2025-04-09] MEDS: KCL 40 MEQ PO (05:39)
--- NOTE | 2025-04-09 07:42 | W.PN.INTV ---
Today's Communication / Plan
Recommendations
Thiamine + folate
Can stop phenobarbital taper and would monitor the rest of the day into tomorrow morning for signs of alcohol withdrawal - last drink was a few days ago so she is out of the danger zone for WD-seizure
[facility] consult
Maintain normotension with goal BP <140/90 -this will need to be monitored closely as an outpatient by her PCP
Up OOB as tolerated
Encourage incentive spirometer
PT/OT
Patient stable for downgrade out of ICU to [facility]. No additional recommendations at this time. Linole[facility] Floor [employer]/Pulmonary service will now sign off. Please reconsult if there are any additional questions/concerns, or if patient's respiratory status
deteriorates.
Assessment
-
#1. History of alcoholism with concern for withdrawal
- Status post IV phenobarbital load in the emergency room
- Last dose of IV phenobarbital taper today; DC'd per hospitalist - would continue monitoring for signs of withdrawal over next 12 hours
- Continue thiamine, folic acid replacement
- WBC count elevated at 19.2 but now normal - was likely high due to hemoconcentration
- Recommend [facility] consult
#2. Headache, right side predominantly with nausea,? Migraine
- Now resolved - continue to monitor
- No visual symptoms reported
- In view of severe headache, stat CT was pursued which was negative for any intracranial hemorrhage
#3. Hypertensive urgency
- Pain control, alcohol withdrawal symptom management
- Patient started on amlodipine; continue prn labetalol, titrate as needed.
Other medical diagnoses:
- Generalized anxiety disorder
- Prior history of admissions for alcohol withdrawal
- Mildly abnormal LFTs. INR 1.18
DVT prophylaxis with subcu Lovenox
Patient stable for downgrade out of ICU to [facility]. No additional recommendations at this time. Linoleum Floor Layer/Pulmonary service will now sign off. Thank you for allowing us to be involved in the care of this patient. Please reconsult if there are
any additional questions/concerns, or if patient's respiratory status deteriorates.
Data:
ECHO 10/2022: Mildly reduced left ventricular systolic function. Left ventricular ejection
fraction is 51% by Car's method.
Mid and basal inferior rice appear hypokinetic.
Mild aortic stenosis.
No prior study available for comparison.
Total time spent today was 58 minutes for this encounter. Time includes reviewing laboratory test/imaging results, reviewing pertinent medical records, obtaining and reviewing medical history, performing an appropriate exam, ordering medications,
tests and procedures. Time also includes documentation of this encounter, coordinating patient care and communicating with other healthcare professionals. Total time does not include separately billed tests performed on this date of service.
Subjective Dataa
Subjective Data
Date of Service:
Date of Service: April 09, 2025
Chief Complaint: Linoleum Floor Layer Follow Up
Subjective:
Pt seen this AM. She is doing well. Denies chest pain or SOB. Headache is now gone. Denies feeling shaky.
Review of Systems
General: Other (Negative unless mentioned above)
Objective Data
Data Reviewed
Vital Signs / I&O / Oxygen:
Vital Signs
Temp Pulse Resp BP Pulse Ox
98.5 F 80 21 140/97 96
04/09/25 04:00 04/09/25 06:09 04/09/25 06:09 04/09/25 06:09 04/09/25 05:00
Intake and Output
04/08/25 04/09/25 04/10/25
06:59 06:59 06:59
Intake Total 3400 / 3400
Output Total 2950 / 2950
Balance 450 / 450
SaO2 96
Physical Exam
General: Respiratory Distress (negative), Comfortable, Chills (negative) and Sweats (negative)
HEENT: Normocephalic and Anicteric
Cardiovascular: S1-S2 and Peripheral Edema (negative)
Respiratory: Wheeze (negative), Crackles (negative), Rhonchi (negative) and Non-Labored Respirations
GI: Soft, Non Distended, Non Tender and Normal Bowel Sounds
Neurology: AO x 3 and Tremors (negative)
Skin: Warm, Dry, Cyanosis (negative) and Jaundice (negative)
Labs/Micro/Reports
Lab Data
04/09/25 04:21
04/09/25 04:21
Laboratory Results
04/08/25
12:01
PT 15.3 H
INR 1.18
APTT 27.1
--- NOTE | 2025-04-09 08:17 | W.PN.HOSP.TC ---
Today's Communication/Plan
-
see plan
Assessment / Plan
Assessment / Plan
Gen: NAD, AAOx3.
Eyes: EOMI, PERRLA, no scleral icterus.
Neck: supple.
CV: RRR, +S1/S2, no m/r/g.
Resp: CTAB, no rales, wheezes, or rhonchi.
Abd: +BS, soft, NT, ND
Skin: No rashes.
Neuro: CN 2-12 intact, non-focal.
Psych: Normal mood and affect.
CT brain:
1. Mild white matter leukoaraiosis in both cerebral hemispheres.
2. Mild diffuse cerebral and cerebellar volume loss.
CXR: Mild hypoinflation. Minor parenchymal opacity at left lung base, likely atelectasis. Cannot entirely exclude small or developing pneumonia in the proper clinical setting.
Acute alcohol withdrawal without DTs:
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
-cont Phenobarbital taper
-MSAS protocol with thiamine/folate/Ativan PRN
Hypertensive urgency:
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
-cont Norvasc
Other problems:
Obesity due to excess calories
CP, trops NEG x 3
Leukocytosis, likely reactive as well as hemoconcentration. Tick pulled off pt, given Doxy, follow Lyme titers.
Hypokalemia, replete
Prolonged QTc (mild, 492ms)
Unspecified mood disorder: Lexapro on hold for prolonged QTc
FULL/Lovenox
Transfer to CT
Total time spent on today's encounter was 50 minutes which included time spent in counseling the patient/family regarding diagnosis and treatment plan as listed above, goals of care, and symptom management. Case was discussed with nursing staff,
specialists, and care coordinators/case management. All labs and imaging personally reviewed by me. Remainder the time spent in detailed review of previous records, lab data, imaging, and other medical provider documentation.
Anticipated Discharge: 24 - 48 hours
Subjective/Interval History
-
Date of Service: April 09, 2025
No new complaints. States headache and CP have resolved.
Objective Data
-
Labs:
Laboratory Results
04/09/25
04:21
WBC 8.2
Hgb 13.4 D
Hct 38.5
Plt Count 268 D
Sodium 134 L
Potassium 3.3 L
Chloride 102
Carbon Dioxide 23
BUN 19 H
Creatinine 0.8
Glucose 107 H
Calcium 9.0
Total Bilirubin 1.6 H
AST 29
ALT 19
Alkaline Phosphatase 94
Vital Signs:
Vital Signs
Temp Pulse Resp BP Pulse Ox
98.5 F 85 21 124/91 94
04/09/25 04:00 04/09/25 08:00 04/09/25 08:00 04/09/25 08:00 04/09/25 08:00
I&O
04/08/25 04/09/25 04/10/25
06:59 06:59 06:59
Intake Total 3400 / 3500 200 / 200
Output Total 2950 / 2950
Balance 450 / 550 200 / 200
[2025-04-09] MEDS: THIAMINE INJECTION 200 MG IV ×3 (08:25→23:13)
[2025-04-09] MEDS: NORVASC 5 MG PO (08:25)
[2025-04-09] MEDS: NEURONTIN 100 MG PO ×3 (08:25→21:44)
[2025-04-09] MEDS: PHENOBARBITAL 97.5 MG IV (08:25)
[2025-04-09] MEDS: FOLVITE 1 MG PO (08:25)
--- NOTE | 2025-04-09 09:08 | W.PN.UPDATE ---
Update Note
Progress Note Update
Case discussed again with the pt. She reconfirms that she has not had an alcoholic drink in 1 week. She did not come in with seizure activity. She has no evidence of delirium tremens. She does not want to take the phenobarbital and I think it is
safe to stop it and monitor at this time.
RN updated
--- NOTE | 2025-04-09 10:12 | CM ---
Patient seen at bedside in ICU. Patient asked CM to lower her voice due to headache. Patient declined support from [facility] and stated she was on waiting list for [facility] but has been attending [facility] on line. CM will continue to follow for discharge
planning needs.
Plan; home with aa follow up as needed with VN if recommended
--- NOTE | 2025-04-09 10:58 | PTCARENOTE ---
Pt rec'd this am from night RN 07:15. Pt is drowsy but arousable to verbal stim. MSAS remain asymptomatic. Pt remains hypertensive, all other VSS. Plan discussed with patient and attending Dr. George. Pt anxious to go home. Dr. George downgraded pt to
medsurg but wants patient to stay until bp is regulated. Pt updated and aware. Pt assisted oob into bathroom to perform hygiene care and void. Pt now seated up in chair. Room 402-1 assigned. pt updated.
--- NOTE | 2025-04-09 12:09 | PTCARENOTE ---
Report called to Pily RN on 4th floor, patient wants to eat lunch prior to going up to new room. Receiving RN aware.
[2025-04-09 13:43] LABS: Lyme Antibody Screen, EIA Negative (Negative)
--- NOTE | 2025-04-09 14:43 | PTCARENOTE ---
Received pt from ICU via WC; accompanied by volunteer. Pt AAO x3, MURPHY well; able to ambulate to bed with minimal assistance; no c/o weakness; pt requesting walker to assist with ambulation. VSS. On room air- pulse ox 98%, no SOB noted. Abd
obese, soft, to be on 2 Gm Na diet. Pt stated she will void in BR. Afebrile; skin W/D/I. Oriented to 4east, currently resting in bed, no c/o. Will continue to monitor.
--- NOTE | 2025-04-09 15:51 | PTCARENOTE ---
Pt resting quietly since arrival on unit. Pt sl anxious at times; expressing concern over BP reading (161/103); stated 'I need to be on 2 BP meds; 1 alone will not work'. notified of current BP. Pt to begin PO Hydralazine TID. Will
continue to monitor.
[2025-04-09] MEDS: APRESOLINE 25 MG PO ×2 (16:20→21:44)
[2025-04-09] MEDS: FLUSH (NSS) 1 FLUSH IV (16:21)
[2025-04-09] MEDS: LOVENOX SC (18:33)
--- NOTE | 2025-04-09 21:53 | PTCARENOTE ---
pt very upset and anxious that she got a roommate. stating I may have to leave if she doesn't stop talking. earplugs, eye mask and headphones given to pt to help her sleep. Also given prn dose of Ativan 0.5mg.
[2025-04-10 07:11] LABS: % Basophils 0.1 % (0-2); % Eosinophils 2.8 % (0-6); % Immature Granulocytes 0.3 % (0-0.5); % Lymphocytes 37.9 % (20.5-51.1); % Monocytes 6.1 % (1.7-9.3); % Neutrophils 52.8 % (42.2-75.2); Absolute Eosinophils 0.2 10^3/uL (0-0.7); Absolute Lymphocytes 2.6 10^3/uL (1.2-3.4); Absolute Monocytes 0.4 10^3/uL (0.1-0.6); Absolute Neutrophils 3.6 10^3/uL (1.4-6.5); Hematocrit 39.3 % (37.0-47.0); Hemoglobin 12.9 g/dL (12.0-16.0); Mean Corp Hgb Conc. 32.8 g/dL (33.0-37.0); Mean Corpuscular Hgb 30.4 pg (27.0-31.0); Mean Corpuscular Volume 92.7 fL (81.0-99.0); Mean Platelet Volume 10.6 fL (7.4-10.4); Nucleated Red Blood Cells % 0 %; Platelet Count 250 10^3/uL (130-400); Red Blood Cell Count 4.24 10^6/uL (4.20-5.40); Red Cell Dist. Width 13.6 % (11.5-14.5); White Blood Cell Count 6.8 10^3/uL (4.8-10.8)
[2025-04-10 07:55] VITALS: BP 155/88
[2025-04-10 07:59] LABS: ALT (SGPT) 19 U/L (0-35); AST (SGOT) 30 U/L (14-36); Albumin 3.8 g/dl (3.5-5.0); Alkaline Phosphatase 83 U/L (38-126); Blood Urea Nitrogen 15 mg/dl (7-17); Carbon Dioxide 24 mmol/L (22-30); Chloride 107 mmol/L (98-107); Estimated Creatinine Clearance 95 ml/min; Glucose 84 mg/dl (70-99); Sodium 137 mmol/L (135-145); Total Protein 6.4 g/dl (6.3-8.2); eGFR > 60.00
--- NOTE | 2025-04-10 08:56 | W.PN.HOSP.TC ---
Today's Communication/Plan
-
see plan
Assessment / Plan
Assessment / Plan
Gen: NAD, AAOx3.
Eyes: EOMI, PERRLA, no scleral icterus.
Neck: supple.
CV: remains RRR, +S1/S2, no m/r/g.
Resp: remains CTAB, no rales, wheezes, or rhonchi.
Skin: No rashes.
Neuro: remains CN 2-12 intact, non-focal.
Psych: Normal mood and affect.
CT brain:
1. Mild white matter leukoaraiosis in both cerebral hemispheres.
2. Mild diffuse cerebral and cerebellar volume loss.
CXR: Mild hypoinflation. Minor parenchymal opacity at left lung base, likely atelectasis. Cannot entirely exclude small or developing pneumonia in the proper clinical setting.
Acute alcohol withdrawal without DTs:
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
-off Phenobarbital since 04/09/25
-MSAS protocol with thiamine/folate/Ativan PRN
Hypertensive urgency:
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
-cont Norvasc
-increased Hydralazine to 50mg TID
Other problems:
Obesity due to excess calories
CP, trops NEG x 3
Leukocytosis, likely reactive as well as hemoconcentration. Tick pulled off pt, given Doxy, Lyme titers NEG.
Hypokalemia, replete
Prolonged QTc (mild, 492ms)
Unspecified mood disorder: Lexapro on hold for prolonged QTc
FULL/Lovenox
Total time spent on d/c = 32 min. This included today's physical exam, progress note, review of laboratory and diagnostic data, preparation of discharge documents and prescriptions, and discussions about the pt's hospital course and discharge plan
with the patient and other medical claims analyst involved in the patient's care.
Anticipated Discharge: Today
Subjective/Interval History
-
Date of Service: April 10, 2025
No new complaints. Denies CP/SOB/VH/AH/diaphoresis/anxiety.
Objective Data
-
Labs:
Laboratory Results
04/10/25
05:48
WBC 6.8
Hgb 12.9
Hct 39.3
Plt Count 250
Sodium 137
Potassium 4.0
Chloride 107
Carbon Dioxide 24
BUN 15
Creatinine 0.7
Glucose 84
Calcium 9.0
Total Bilirubin 1.0
AST 30
ALT 19
Alkaline Phosphatase 83
Vital Signs:
Vital Signs
Temp Pulse Resp BP Pulse Ox
98.4 F 91 18 155/88 98
04/10/25 07:55 04/10/25 07:55 04/10/25 07:55 04/10/25 07:55 04/10/25 07:55
I&O
04/09/25 04/10/25 04/11/25
06:59 06:59 06:59
Intake Total 3400 / 3500 2460 / 2460
Output Total 2950 / 2950
Balance 450 / 550 2460 / 2460
[2025-04-10] MEDS: FOLVITE 1 MG PO (09:15)
[2025-04-10] MEDS: APRESOLINE 25 MG PO (09:15)
[2025-04-10] MEDS: NEURONTIN PO ×2 (09:15→09:19)
[2025-04-10] MEDS: NORVASC 5 MG PO (09:16)
[2025-04-10] MEDS: THIAMINE INJECTION 200 MG IV (09:16)
[2025-04-10] MEDS: REFRESH EYE DROPS (PF) 1 DROPS OPHTH (10:53)
--- NOTE | 2025-04-10 11:43 | CM ---
Addendum entered by Gris Resendiz RN 04/10/25 11:54:
Pt set up her own [employer] home.
Original Note:
MD entered order for discharge.
Pt declined [facility].
She had a ride home.
PLAN Home no needs
--- NOTE | 2025-04-10 12:32 | W.DCSUMMARY ---
Discharge Summary
Discharge Data
Date of Admission: 04/08/25
Date of Discharge: 04/10/25
-
Pending Results: No
Hospital Course
Primary diagnoses:
Acute alcohol withdrawal without delirium tremens
Hypertensive emergency
Chest pain
Secondary diagnoses:
Obesity due to excess calories
Leukocytosis, likely reactive as well as due to hemoconcentration
Hypokalemia, replete
Prolonged QTc (mild, 492ms)
Unspecified mood disorder
Consults:
None
Imaging:
CT brain:
1. Mild white matter leukoaraiosis in both cerebral hemispheres.
2. Mild diffuse cerebral and cerebellar volume loss.
CXR: Mild hypoinflation. Minor parenchymal opacity at left lung base, likely atelectasis. Cannot entirely exclude small or developing pneumonia in the proper clinical setting.
60-year-old female who presented with chief complaints of dizziness, tremors, and headache as outlined in the H&P done on admission. Hospital course per problem was:
Acute alcohol withdrawal without DTs: Patient was initially placed on phenobarbital. The day after admission she stated her last drink was 1 week prior to admission. She requested that her phenobarbital be stopped and it was stopped. She had no
delirium tremens. She was on the MSAS protocol with thiamine/folate/Ativan PRN while hospitalized.
Chest pain: Patient had 3 negative troponins. ECG was without acute ischemic changes. Her chest pain resolved.
Hypertensive urgency: The patient been noncompliant with her antihypertensive medications prior to admission. Her Norvasc was restarted. She was started on hydralazine which was increased to 50mg TID.
Discharge Plan
-
Patient Disposition: Home (Routine Discharge)
Discharge Diagnosis/Procedures: Acute alcohol withdrawal without delirium tremens, hypertensive emergency
Condition: Good
Diet: 2 Gram Sodium
Activity: No restrictions
Driving Restrictions: As prior to admission
Bathing Restrictions: None
Referrals:
Alessandra Joe MD [Family Provider, [facility]] - in less than 1 week
Prescriptions:
New
amlodipine 5 mg Tablet
5 mg PO DAILY Qty: 30 0RF
folic acid 1 mg Tablet
1 mg PO DAILY Qty: 0 0RF
gabapentin 100 mg Capsule
100 mg PO TID Qty: 90 0RF
thiamine mononitrate (vit B1) 100 mg Tablet
100 mg PO BID Qty: 0 0RF
hydralazine 50 mg tablet
50 mg PO TID Qty: 90 0RF
Continued
acetaminophen [Tylenol Extra Strength] 500 mg Tablet
1,000 mg PO Q6HPRN PRN (Reason: mild pain)
Discharge Orders:
Discharge Patient (As Directed); Ordered 04/10/25
Ordered By: Steven George
Discharge Date and Time
Discharge Date/Time: 04/10/25 11:27
Print Language: ESTONIAN
== END 2025-04-10 11:27 | disposition home or self-care (01) | DRG 897 ==
LOC: 4 EAST ACU 09:11
PROVIDERS: ADMITTING PHYSICIAN Hospitalist; ATTENDING PHYSICIAN Internal Medicine; CONSULT PHYSICIAN Internal Medicine; EMERGENCY PHYSICIAN Emergency Medicine; FAMILY PHYSICIAN Family Medicine
DX: F10.239 Alcohol dependence with withdrawal, unspecified (principal); I16.1 Hypertensive emergency; S40.261A Insect bite (nonvenomous) of right shoulder, initial encounter; W57.XXXA Bitten or stung by nonvenomous insect and other nonvenomous arthropods, initial encounter; I10 Essential (primary) hypertension; F17.200 Nicotine dependence, unspecified, uncomplicated; R30.0 Dysuria; R94.31 Abnormal electrocardiogram [ECG] [EKG]; D72.823 Leukemoid reaction; F39 Unspecified mood [affective] disorder; F32.A Depression, unspecified; G43.909 Migraine, unspecified, not intractable, without status migrainosus; F41.1 Generalized anxiety disorder; E66.09 Other obesity due to excess calories; E87.6 Hypokalemia; G62.1 Alcoholic polyneuropathy; E86.1 Hypovolemia; E86.0 Dehydration; Z68.37 Body mass index [BMI] 37.0-37.9, adult; Z79.899 Other long term (current) drug therapy; Z91.148 Patient's other noncompliance with medication regimen for other reason
CPT/HCPCS: 70450; 71045; 80053; 81003; 81015; 82077; 82805; 82962; 83605; 83690; 83735; 84100; 84443; 84484; 85025; 85610; 85730; 86618; 93005; 96365; 96366; 96375; 97162; 97165; 99291

== ENCOUNTER 2025-06-13 10:07 | Emergency (ER) | payer OTHER, SELFPAY ==
[2025-06-13 10:10] VITALS: BP 126/87
--- NOTE | 2025-06-13 11:21 | EDRN ---
Pt continues to walk around hallway after being asked thrice to remain in her room for imaging. Pt is in hallway speaking to Ray who was attempting to see a different patient and offered her support to patient. Pt with strong odor of ETOH on
breath and is difficult to redirect. Pt assisted to seated position in stretcher and is awaiting orders.
--- NOTE | 2025-06-13 11:26 | ED.GENMED ---
History of Present Illness
General
Chief Complaint: Musculo-Skeletal Complaint
Source: patient
Exam Limitations: none
Time Seen by Provider: 06/13/25 10:26
Nursing documentation reviewed up to this point in time: agreed with
History of Present Illness
History of Present Illness:
58-year-old male past medical history of alcohol abuse hypertension chronic pain presents to the ER for evaluation. Patient admits to drinking alcohol today,' vodka' and fell injuring her right knee. She reports her right knee is chronically
giving her problems she needs a knee replacement. She denies hitting her head. She called a Lyft to get here. She does report that she was sober for 3 months but drank today. She is followed by pain management and will take OxyContin if she has
it at home. she does have at the moment and reports therefore drank ' to kill the pain,' ( in her right knee ) .
She denies any headache neck pain nausea vomiting.
Past History
Past History
ED Past Medical History: HTN, Psychiatric and Other (Alcoholism)
ED Past Surgical History: Other (parathyroidectomy)
Social History
Tobacco: Smoker
Alcohol: Binge drinker
Drug: None
Personal:
Living: with family
Employment: Employed
Family History
Family History: Other (Father with TIA and hypertension)
Phy Exam
General Physical Exam
General Presentation: no apparent distress
General age: appears stated age
General Skin: warm and dry
General Habitus: poor hygiene
General Mental: angry
General Hydration: appears well hydrated
Neurological Exam
Neurological Exam: alert and oriented x3
Musculoskeletal Exam
Musculoskeletal Exam: other ( rle with strong pulses + mild swelling to knee, no erythema or redness )
Skin Exam
Skin Exam: normal color and warm/dry
Psychiatric Exam
Psychiatric Exam: agitated
Course
Orders/Labs/Results
Orders:
Orders
06/13/25 11:25
Ketorolac [Toradol] 30 mg IM NOW STA
Vital Signs
Initial and Last Documented VS:
Initial Vital Signs
Temp Pulse Resp BP Pulse Ox
98.1 F 81 18 126/87 97
06/13/25 10:10 06/13/25 10:10 06/13/25 10:10 06/13/25 10:10 06/13/25 10:10
Last Documented Vital Signs
Temp Pulse Resp BP Pulse Ox
98.2 F 78 20 124/68 98
06/13/25 11:51 06/13/25 11:51 06/13/25 11:51 06/13/25 11:51 06/13/25 11:51
Sociology Faculty Member consulted with Physician
Sociology Faculty Member consulted with physician?: Yes
Name of Physician Consulted: char
MDM/Problems Addressed
MDM/Problems Addressed:
Patient is a 60-year-old female history alcohol use drank prior to arrival and reports she fell landing on her right knee. She is angry and short with her words but she is awake and alert answering questions and is oriented. She denies seeing her
head and on exam there is no obvious head injury. She did take a Lyft to get here and was concerned about her knee pain. With history of alcohol use and recent fall CAT scan was initially ordered however patient now does not want the CAT scan of
her head knee nor does she want an x-ray of her knee. She reports similar she wants to go home. She is ambulatory and bearing weight on this knee. Her vital signs are stable. She is not on blood thinners. She is planning to call left to go
home. Likely contusion. Will discharge patient I did let patient know she is welcome to return if any concerning symptoms or if she wishes to have imaging done which was previously ordered.
I did offer pt [facility], however she declines.
Chronic conditions affecting care:
alcohol use
*Pulse Oximetry
SaO2: 97
Oxygen Mode of Delivery: Room air
Patient hypoxic: no
*Critical Care Note
Total Time (30-74mins, 75-104mins- exclusive of procedures): Not Applicable
ED Attending Note
-
Portions of this chart may have been created with voice recognition software.� Occasional wrong word or��sound alike� substitutions may have occurred due to the inherent limitations of voice recognition software.
Discharge Plan
Departure
Patient Disposition: Home (Routine Discharge)
Date of Disposition: 06/13/25
Time of Disposition: 11:39
Patient with high blood pressure during this ER visit?: No
Condition: Fair
Covid-19: Not Applicable
Discharge Problem:
Fall, Contusion
Instructions: Contusion (DC), Alcohol use disorder - ED (DC)
Prescriptions:
No Action
acetaminophen [Tylenol Extra Strength] 500 mg Tablet
1,000 mg PO Q6HPRN PRN (Reason: mild pain)
amlodipine 5 mg Tablet
5 mg PO DAILY Qty: 30 0RF
folic acid 1 mg Tablet
1 mg PO DAILY Qty: 0 0RF
gabapentin 100 mg Capsule
100 mg PO TID Qty: 90 0RF
thiamine mononitrate (vit B1) 100 mg Tablet
100 mg PO BID Qty: 0 0RF
hydralazine 50 mg tablet
50 mg PO TID Qty: 90 0RF
Referrals:
Todd Vickers DO [Family Provider, Family Practice]
Activity Restrictions/Additional Instructions:
Ice your knee for the next 24 hours 20 minutes at a time several times a day. You may take ibuprofen if needed. Follow-up with your orthopedic doctor in the next 2 days call to make an appointment return if any worsening of symptoms. If you
change your mind please return to the ER for imaging or further continued evaluation
Interventions
Interventions:
*Risk Screen - Suicide Last Done: 06/13/25 10:10
*General Assessment Last Done: 06/13/25 10:10
*Neglect/Abuse Screening Last Done: 06/13/25 10:10
*ED- Fall Risk Assessment Last Done: 06/13/25 11:10
*Nursing Disposition Last Done: 06/13/25 12:26
ED-Musculoskeletal Assessment Last Done: 06/13/25 11:10
Discharge Date and Time
Discharge Date/Time: 06/13/25 12:29
Print Language: ICELANDIC
--- NOTE | 2025-06-13 11:39 | EDRN ---
Pt verbally abusive to xray staff, refusing xray, ct scan and medications at this time. Pt attempting to elope from ER, provider to bedside to ask pt to find a ride home since she has admitted to drinking ETOH prior to arrival.
[2025-06-13 11:51] VITALS: BP 124/68
--- NOTE | 2025-06-13 12:00 | EDRN ---
Pt verbally abusive to RN and ER staff, states her [email or web address] is and she needs a order editor, pt demanding this RN to provide her a order editor. Pt states 'I need a fucking phone order editor, this is [facility] and you cunts don't have
fucking technology! You are an obnoxious bitch and I don't even wanna see your face.' Pt informed that there is a phone charging station in waiting room, pt demanding staff provide her with a order editor in her room, [email or web address] needs a C-order editor and that
order editor is missing from waiting area. Pt observed in ED room #31 using her and is now speaking to someone and sounds to be cancelling her doctor appointment for today. Pt is alert and oriented and airway is patent. Will continue to
attempt to monitor.
--- NOTE | 2025-06-13 12:23 | EDRN ---
Pt refusing wheelchair, this RN walked with WC next to pt as she exited ER, pt assisted with using phone in waiting area to provide '[employer]' her credit card information. A message left for pts sister to come and pick pt back up, pt
states her sister drove her here and denies having driven here own her own.
== END 2025-06-13 12:29 | disposition home or self-care (01) ==
LOC: EMR 10:07
PROVIDERS: EMERGENCY PHYSICIAN Emergency Medicine; FAMILY PHYSICIAN Family Medicine
DX: S80.01XA Contusion of right knee, initial encounter (principal); W19.XXXA Unspecified fall, initial encounter; F10.20 Alcohol dependence, uncomplicated; I10 Essential (primary) hypertension; M25.561 Pain in right knee; G89.29 Other chronic pain; F17.200 Nicotine dependence, unspecified, uncomplicated; Z82.49 Family history of ischemic heart disease and other diseases of the circulatory system
CPT/HCPCS: 99284; 96372

== ENCOUNTER 2025-06-15 06:52 | Emergency (ER) | payer OTHER, SELFPAY ==
[2025-06-15] VITALS (7 sets, daily range): BP systolic 120–162; BP diastolic 89–106
--- NOTE | 2025-06-15 08:08 | ED.GENMED ---
History of Present Illness
General
Chief Complaint: Alcohol Problem
Source: patient
Exam Limitations: none
Time Seen by Provider: 06/15/25 07:53
History of Present Illness
History of Present Illness:
60-year-old female presents stating that she needs help with her alcohol withdrawal symptoms. She drink a whole bottle of wine 2 days ago and has not had anything since. She notes a headache she is dizzy she is nauseous and vomiting. She has a
history of alcohol abuse. She has been in [facility] and has a program set up as an outpatient. She was admitted in March 2025 for alcohol withdrawal and hypertensive urgency. No other complaints at this time
Past History
Past History
ED Past Medical History: HTN, Psychiatric and Other (Alcoholism)
ED Past Surgical History: Other (parathyroidectomy)
Social History
Tobacco: Smoker
Alcohol: Binge drinker
Drug: None
Personal:
Living: with family
Employment: Employed
Family History
Family History: Other (Father with TIA and hypertension)
Phy Exam
Physical Exam
Physical Exam:
General: Well-appearing female no respiratory distress
HEENT: Normocephalic mucosa dry
Heart: Regular rate no murmurs
Lungs: Clear no wheeze
Neurologic exam: No tremor noted alert and oriented conversing appropriately
Skin is warm no diaphoresis
Scores
Withdrawal Assessment of Alcohol
Withdrawal Assessment Completed?: No
Course
Orders/Labs/Results
Orders:
Orders
06/15/25 07:05
EKG [Electrocardiogram (*1)] Urgent
Reason for Study: Palpitations
EKG- Treatment ONCE
06/15/25 08:04
0.9% Sodium Chloride 1000 ml [Nss] 1,000 ml IV BOLUS
diazePAM [Valium Injection] 5 mg IV NOW STA
06/15/25 08:15
Alcohol Urgent
Complete Blood Count/With Diff Urgent
Comprehensive Metabolic Panel Urgent
Lipase Urgent
06/15/25 09:35
diazePAM [Valium Injection] 5 mg IV NOW STA
06/15/25 10:55
diazePAM [Valium Injection] 5 mg IV NOW STA
Abnormal Lab Results
06/15/25
08:15
WBC 12.3 H 10^3/uL
(4.8-10.8)
Absolute Neuts (auto) 10.1 H 10^3/uL
(1.4-6.5)
Absolute Monos (auto) 0.7 H 10^3/uL
(0.1-0.6)
Neutrophils % 82.5 H %
(42.2-75.2)
Lymphocytes % 10.8 L %
(20.5-51.1)
Potassium 3.1 L mmol/L
(3.5-5.1)
Chloride 95 L mmol/L
(98-107)
Glucose 128 H mg/dl
(70-99)
Calcium 10.4 H mg/dl
(8.4-10.2)
AST 38 H U/L
(14-36)
06/15/25 08:15
06/15/25 08:15
Vital Signs
Initial and Last Documented VS:
Initial Vital Signs
Temp Pulse Resp BP Pulse Ox
98.7 F 97 20 144/101 98
06/15/25 06:56 06/15/25 06:56 06/15/25 06:56 06/15/25 06:56 06/15/25 06:56
Last Documented Vital Signs
Temp Pulse Resp BP Pulse Ox
98.7 F 90 16 162/106 95
06/15/25 06:56 06/15/25 09:15 06/15/25 09:15 06/15/25 09:09 06/15/25 09:15
MDM/Problems Addressed
Differential Diagnosis Includes:
Patient has symptoms related to alcohol withdrawal. Vital signs are stable through triage. Will check labs hydrate give Valium. She has an appointment set up with [facility] for outpatient program.
*Pulse Oximetry
SaO2: 98
Oxygen Mode of Delivery: Room air
Patient hypoxic: no
*Critical Care Note
Total Time (30-74mins, 75-104mins- exclusive of procedures): Not Applicable
Update Note
Update Note:
Patient reevaluated multiple times. Was given Valium IV for her symptoms and is feeling improved. She has been ambulatory to the bathroom on her own several times at her stay. She is currently in contact with [facility] for outpatient treatment.
Stable for discharge
ED Attending Note
-
Portions of this chart may have been created with voice recognition software.� Occasional wrong word or��sound alike� substitutions may have occurred due to the inherent limitations of voice recognition software.
Discharge Plan
Departure
Patient Disposition: Home (Routine Discharge)
Date of Disposition: 06/15/25
Time of Disposition: 12:03
Patient with high blood pressure during this ER visit?: No
Discharge Problem:
Alcohol abuse
Instructions: Alcohol Use Disorder (DC)
Prescriptions:
New
lorazepam [Ativan] 0.5 mg tablet
0.5 mg PO TID PRN (Reason: alcohol withdrawal) Qty: 9 0RF
No Action
acetaminophen [Tylenol Extra Strength] 500 mg Tablet
1,000 mg PO Q6HPRN PRN (Reason: mild pain)
amlodipine 5 mg Tablet
5 mg PO DAILY Qty: 30 0RF
folic acid 1 mg Tablet
1 mg PO DAILY Qty: 0 0RF
gabapentin 100 mg Capsule
100 mg PO TID Qty: 90 0RF
thiamine mononitrate (vit B1) 100 mg Tablet
100 mg PO BID Qty: 0 0RF
hydralazine 50 mg tablet
50 mg PO TID Qty: 90 0RF
Referrals:
Todd Vickers DO [Family Provider, Family Practice]
Activity Restrictions/Additional Instructions:
Please continue to follow-up with [facility] for treatment of your alcohol use disorder. Use Ativan if needed for severe withdrawal symptoms.
Interventions
Interventions:
*Risk Screen - Suicide Last Done: 06/15/25 06:56
*Neglect/Abuse Screening Last Done: 06/15/25 06:56
Discharge Date and Time
Print Language: SLOVENIAN
[2025-06-15] MEDS: VALIUM INJECTION 5 MG IV ×3 (08:09→11:08)
[2025-06-15] MEDS: NSS 1000 IV (08:15)
[2025-06-15 08:28] LABS: Hematocrit 42.6 % (37.0-47.0); Hemoglobin 15.0 g/dL (12.0-16.0); Mean Corp Hgb Conc. 35.2 g/dL (33.0-37.0); Mean Corpuscular Volume 88.0 fL (81.0-99.0); Nucleated Red Blood Cells % 0 %; Platelet Count 373 10^3/uL (130-400); Red Cell Dist. Width 12.1 % (11.5-14.5)
[2025-06-15 09:03] LABS: ALT (SGPT) 26 U/L (0-35); AST (SGOT) 38 U/L (14-36); Albumin 4.7 g/dl (3.5-5.0); Alkaline Phosphatase 125 U/L (38-126); Blood Urea Nitrogen 12 mg/dl (7-17); Calcium 10.4 mg/dl (8.4-10.2); Carbon Dioxide 30 mmol/L (22-30); Chloride 95 mmol/L (98-107); Glucose 128 mg/dl (70-99); Lipase 32 U/L (23-300); Potassium 3.1 mmol/L (3.5-5.1); Sodium 135 mmol/L (135-145); Total Protein 7.7 g/dl (6.3-8.2); eGFR > 60.00
[2025-06-15] MEDS: MOTRIN 600 MG PO (12:10)
== END 2025-06-15 12:31 | disposition home or self-care (01) ==
LOC: EMR 06:52
PROVIDERS: Physician Assistant; EMERGENCY PHYSICIAN Emergency Medicine; FAMILY PHYSICIAN Family Medicine
DX: F10.20 Alcohol dependence, uncomplicated (principal); I10 Essential (primary) hypertension; F17.200 Nicotine dependence, unspecified, uncomplicated
CPT/HCPCS: 96374; 96376; 96361; 99284; 80053; 82077; 83690; 85025; 93005

== ENCOUNTER 2025-08-15 09:05 | Emergency (ER) | payer OTHER, SELFPAY ==
[2025-08-15 09:08] VITALS: BP 158/106
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
== END 2025-08-15 10:04 | disposition home or self-care (01) ==
LOC: EMR 09:05
PROVIDERS: EMERGENCY PHYSICIAN Emergency Medicine
DX: S80.11XA Contusion of right lower leg, initial encounter (principal); Y04.8XXA Assault by other bodily force, initial encounter; I10 Essential (primary) hypertension; F10.20 Alcohol dependence, uncomplicated; F17.200 Nicotine dependence, unspecified, uncomplicated; Z82.49 Family history of ischemic heart disease and other diseases of the circulatory system
CPT/HCPCS: 99282

== ENCOUNTER → 2025-08-29 15:00 | Outpatient (REF) | payer OTHER, SELFPAY | LOC: RAD 15:00 | PROVIDERS: ATTENDING PHYSICIAN Internal Medicine; FAMILY PHYSICIAN Family Medicine | DX: N18.1 Chronic kidney disease, stage 1 (principal); I12.0 Hypertensive chronic kidney disease with stage 5 chronic kidney disease or end stage renal disease; M54.2 Cervicalgia | CPT/HCPCS: 72050; 93975 ==